=== PATIENT | male | born 1945 | race Caucasian/White ===

== ENCOUNTER 2016-10-20 19:22 | Inpatient (IN) ==
[2016-10-20] MEDS ORDERED: HYDROmorphone 2 MG/1 ML VIAL IV STA (19:50)
[2016-10-20] MEDS ORDERED: DIPH/TET/ACEL PERT BOOSTER VACCINE 0.5 ML VIAL IM ONE ×2 (19:50→20:35)
[2016-10-20] MEDS ORDERED: ONDANSETRON 4 MG/2 ML VIAL IV STA ×2 (19:50→22:08)
[2016-10-20] MEDS ORDERED: LACTATED RINGERS 500 ML IV STA (19:50)
--- NOTE | 2016-10-20 19:54 | Emergency Department Note ---
IJosé Emily, am scribing for, and in the presence of, Tani Moya MD 19: 48. Griffin Parisi Charles R, MD, personally performed the services described in this documentation, ascribed by Zoey Kumar in my presence, and it is both accurate and complete [id number] . Arrival - Arrival Chief Complaint: Trauma Stated Complaint: kicked by a horse-heart patient ED Nursing Triage Note: Pt arrives to triage with complaints of being kicked by a hour a few hours ago. PT is noted to have an abrasion to left side of chest along ribs and to upper right back. Pt denies any sob at time of triage. States that pain is worse with deep breaths. No crepitus can be felt at time of triage and no obvious deformity to chest of back is seen. Pt aslo has some skin tear noted to l ankle and to right forearm Mode of Arrival: Wheelchair Limitations: No Limitations Source: Patient, Significant other - History of Present Illness HPI Narrative: Pt is a 71 y/o male who came to ED with c/o left chest wall pain and right sided back pain s/p of being kicked by a donkey at close range about few hours ago. Pt states that pain is worse with deep breaths, has nausea and active emesis in ED, but denies hitting head or LOC. Pt also has some skin tear noted to left ankle and to right forearm. Spouse notes pt was knocked down "pretty hard" and couldn't get back up right away, but pt denies neck pain. Pt takes aspirin daily. PMHx of IDDM, HTN. Onset (ago): hour(s) Consistency: constant Severity: moderate Severity scale (1-10): 7 Quality: aching Allergies/Adverse Reactions: Allergies Allergy/AdvReac Type Severity Reaction Status Date / Time No Known Allergies Allergy Verified 10/20/16 19:27 Review of System - Review of System 12 point system: reviewed and no additional remarkable complaints except as stated - Review of System Constitutional: Absent: chills, fever Respiratory: Present: respiratory distress (pain with deep breaths) Cardiovascular: Absent: chest pain, syncope Gastrointestinal: Present: nausea, vomiting. Absent: abdominal pain Musculoskeletal: Present: back pain, other (left sided chest wall pain from kick ). Absent: arm pain, leg pain, neck pain Skin: Present: lesions (abrasions to left ankle and right forearm) Neurological: Absent: headache, numbness, paresthesias, confusion Psychiatric: Absent: anxiety Medical,Surgical,& Family Hx - Medical History Cardio: History of: Hypertension Endocrine: History of: Diabetes Mellitus (IDDM), Dyslipidemia - Family History Family History: noncontributory - Social History Smoking Status: Never smoker Frequency of Alcohol Use: None Type of Drug Use: None Marital Status: Lives With:: Spouse Functional capacity: independent ambulation Exam Physical Examination: GENERAL: Moderate distress alert, HEAD: no evidence of trauma, no racoon eyes/suarez signs NECK: non-tender, painless ROM, trachea midline, NEXUS Criteria neg EYES: PERRL, EOMI, no CORINNA ENT: nml ext. inspection, airway nml, no dental/oral injury RESP/CVS:t chest is tender over the left lower part of the chest just below the left nipple line there is a bruise and abrasion. On the right posterior chest there is a large swath running obliquely right posterior chest, nml heart sounds , nml breath sounds ABDOMEN: non-tender, no distension GENITAL/RECTAL: nml ext inspection NEURO/PSYCH: A/Ox4, CN2-10 intact, sensation nml, motor nml, mood/affect nml Glascow Coma Scale: 15 eyes [id number]-1 pwdunv-lhj-1 motor-nml-6 SKIN: intact, warm, dry BACK: no CVA tenderness, no vertebral tenderness EXTREMITIES right arm abrasion tenderness full range of motion noted pelvis stable, , no pedal edema, nml ROM, nml color/temp Vital Signs: Vital Signs Temperature 98.5 F 10/20/16 19:27 Pulse Rate 68 10/20/16 19:27 Respiratory Rate 20 10/20/16 19:27 Blood Pressure 169/83 10/20/16 19:27 O2 Sat by Pulse Oximetry 95 10/20/16 19:27 Course - Consultations Consultation #1: Dr. Maxwell consulted. He will admit patient to the ICU repeat chest x-ray in the morning patient had chest tube placed by oh Time: 22:01 Procedures - Chest Tube Chest Tube 1 Chest Tube Location: mid axillary line Size of Tube (cm): 32 Chest Tube Prep: betadine prep, sterile drapes applied Local Anesthetic: lidocaine 1%, with epi Amount of Anesthesia Used (mL): 10 Incision Made With: #11 blade Post Procedure: sutured to skin, sterile dressing applied Tube Drainage: Air Amount of Initial Drainage (cc's): 300 Post Procedure CXR?: Yes (Good tube placement with decreased air and blood) Patient Tolerated Procedure: Yes Results - Labs CBC & BMP: 10/20/16 19:47 10/20/16 19:47 Lab Results: I have reviewed the patients labs Labs: Laboratory Tests 10/20/16 19:47 WBC 14.3 H RBC 3.51 L Hgb 11.6 L Hct 32.4 L Neut % (Auto) 82.7 H Lymph % (Auto) 8.0 L Neut # (Auto) 11.8 H Lymph # (Auto) 1.2 L Moffat # (Auto) 1.0 H Laboratory Tests 10/20/16 10/20/16 10/20/16 19:47 19:47 19:47 INR 1.0 PT Patient/Control Mix 10.7 Circ Anticoag PTT 23.2 Sodium 134 L Potassium 6.2 H* Chloride 103 Carbon Dioxide 25 BUN 29 H Creatinine 1.50 H GFR Calculation 51 Glucose 289 H Total Creatine Kinase CK-MB (CK-2) CK and CKMB Interp Troponin I Lipase 64.0 L Serum Alcohol < 15 L Blood Type O POSITIVE Antibody Screen Negative 10/20/16 19:47 INR PT Patient/Control Mix Circ Anticoag PTT Sodium Potassium Chloride Carbon Dioxide BUN Creatinine GFR Calculation Glucose Total Creatine Kinase 368 H CK-MB (CK-2) 5.5 H CK and CKMB Interp 1.5 Troponin I 0.022 Lipase Serum Alcohol Blood Type Antibody Screen - Diagnostic Findings Procedure: Chest x-ray: report reviewed by me (Left second third rib fractures. Left hemopneumothorax. Left lower lobe pulmonary contusion.), CT Abdomen and Pelvis: report reviewed by me (with Chest: 1. Acute fx of the left second through fifth ribs. Left hemopneumothorax. 2Chronic/old T12 compression fx. 3. Prior median sternotomy. Calcified atheromatous disease of the coronary arteries. No aortic injury shown.), X-ray: report reviewed by me (Thoracic spine : No acute bony injury identified. Degenerative changes T11-12 with old T12 compression fracture. Pelvic: No acute bony injury. Right inguinal hernia contains bowel. Mild constipation. LT ribs: Left second through fourth rib fx. Possible fifth and possible sixth rib fx. Left hemopneumothorax) Critical Care Time Critical Care Time: Yes Total Critical Care Time: 60 Disposition Clinical Impression: Kicked by mule, Blunt trauma to anterior chest wall, Left hemo-pneumo thorax, Multiple left rib fractures, Pulmonary contusion, Hyperkalemia, Right forearm contusion with skin tears, Right inguinal hernia Case discussed with: patient, patient's family Disposition: Still a Patient Condition: Critical Time of Disposition: 22:04
[2016-10-20 19:58] LABS: Basophils # 0.1 10*3/uL (0.0-0.2); Basophils % 0.4 % (0.0-0.8); Eosinophils # 0.2 10*3/uL (0.0-0.87); Eosinophils % 1.5 % (0.00-10.9); Hematocrit 32.4 VOL% (42.0-52.0); Hemoglobin 11.6 GM/DL (14.0-18.0); Immature Granulocytes % 0.6 %; Immature Granulocytes Absolute 0.09 #; Lymphocytes # 1.2 10*3/uL (1.4-4.0); Mean Corpuscular HGB Conc 35.8 GM/DL (32-36); Mean Corpuscular Hemoglobin 33 PG (27-34); Mean Corpuscular Volume 92.3 FL (87-102); Mean Platelet Volume 10.2 FL (9.6-12.0); Monocytes % 6.8 % (1.7-12.7); Neutrophils # 11.8 10*3/uL (1.4-7.4); Neutrophils % 82.7 % (38.7-73.9); Platelet Count 229 T/CUMM (130-400); Red Blood Count 3.51 MC/CUMM (3.8-5.5); Red Cell Distribution Width 12.4 % (9.3-17.3); White Blood Count 14.3 T/CUMM (4-12)
[2016-10-20 20:24] LABS: PT Patient Result 10.7 SECS; Partial Thromboplastin Time 23.2 SECS (0-40)
[2016-10-20 20:25] LABS: Alanine Aminotransferase 23 U/L (16-61); Alkaline Phosphatase 115 U/L (45-117); Amylase 45 U/L (25-115); Aspartate Amino Transferase 20 U/L (0-37); Blood Urea Nitrogen 29 MG/DL (7-18); Calcium 9.3 MG/DL (8.5-10.1); Glucose 289 MG/DL (74-106); Osmolality,Calculated 284.2 MOS/KG (273-304); Sodium 134 MMOL/L (136-145); Total Protein 7.2 G/DL (6.4-8.3)
[2016-10-20 20:26] LABS: CKMB % 1.5 %; Troponin I Only 0.022 NG/ML (0.00-0.045)
[2016-10-20 20:31] LABS: Potassium 6.2 MMOL/L (3.5-5.1)
[2016-10-20] MEDS ORDERED: ONDANSETRON 4 MG/2 ML VIAL ONE (20:35)
[2016-10-20] MEDS ORDERED: cefTRIAXone 1,000 MG VIAL ONE (20:35)
[2016-10-20] MEDS ORDERED: HYDROmorphone 2 MG/1 ML VIAL ONE (20:35)
[2016-10-20] MEDS ORDERED: ceFAZolin 1,000 MG VIAL ONE (20:39)
--- NOTE | 2016-10-20 21:02 | XRay Report ---
XR chest 2V Indication: Kicked by horse. Chest 2 views: Comparison 08/22/2011. Right lung and pleural space are clear. There is a left hemopneumothorax present with subcutaneous emphysema lateral left chest wall. Parenchymal opacification of the left lung base suggests contusion. Heart size is normal. Prosthetic aortic valve and median sternotomy wires are stable. Fractures of the left second, third ribs noted. Other fractures may be present but radiographically occult. Impression: Left second third rib fractures. Left hemopneumothorax. Left lower lobe pulmonary contusion. PROCEDURE INTERPRETED AT [facility] DEPARTMENT OF RADIOLOGY Final Report Signed by: Derek Song M.D.
--- NOTE | 2016-10-20 21:02 | XRay Report ---
XR thoracic spine 2V ap/lat Indication: Kicked by horse. Thoracic spine 2 views: Bridging endplate osteophytes at T11-12 noted with a 50% T12 compression fracture, old. No acute compression fractures are shown. No spondylolisthesis. Impression: No acute bony injury identified. Degenerative changes T11-12 with old T12 compression fracture. PROCEDURE INTERPRETED AT [facility] DEPARTMENT OF RADIOLOGY Final Report Signed by: Derek Song M.D.
--- NOTE | 2016-10-20 21:03 | XRay Report ---
XR ribs 2V LT Indication: Chest injury. Kicked by horse. Left RIBS 4 views: Fractures of the left second, third, fourth and probably fifth ribs noted. Possible hairline fracture of the anterior left sixth rib is noted as well. The other ribs are grossly intact. Left hemopneumothorax is present and there is subcutaneous emphysema. Impression: Left second through fourth rib fractures. Possible fifth and possible sixth rib fractures. Left hemopneumothorax. PROCEDURE INTERPRETED AT [facility] DEPARTMENT OF RADIOLOGY Final Report Signed by: Derek Song M.D.
--- NOTE | 2016-10-20 21:05 | XRay Report ---
XR pelvis AP 1 or 2 Views Indication: Kicked by horse. Pelvic injury. Pelvis no pelvic fracture identified. No diastases. Bowel is present within the right scrotum. Increased stool in the colon is present. Impression: No acute bony injury. Right inguinal hernia contains bowel. Mild constipation. PROCEDURE INTERPRETED AT [facility] DEPARTMENT OF RADIOLOGY Final Report Signed by: Derek Song M.D.
--- NOTE | 2016-10-20 21:06 | XRay Report ---
XR forearm RT Indication: Kicked by horse. Right forearm 2 views: Mild soft tissue swelling noted. Vascular calcinosis is present as well. No acute fracture. No dislocation. Impression: Soft tissue swelling. PROCEDURE INTERPRETED AT [facility] DEPARTMENT OF RADIOLOGY Final Report Signed by: Derek Song M.D.
--- NOTE | 2016-10-20 21:11 | CT Report ---
CT chest abdomen pelvis w con Indication: Kicked by horse. CT CHEST, ABDOMEN AND PELVIS WITH CONTRAST DLP: 847 mGy*cm. One or more of the following dose reduction techniques was used: Automated exposure control, adjustment of the mA and/or kV according the patient size, or use of iterative reconstruction techniques. Comparison: CT chest 06/06/2008 Technique: Axial CT images of the chest, abdomen and pelvis were obtained following the intravenous administration of Omnipaque 350, 100 cc. Oral contrast was not administered. Chest: Thoracic aorta is elongated and mildly tortuous without aneurysm or dissection identified. No periaortic hematoma. Normal heart size. Postoperative changes median sternotomy. Calcified atheromatous disease of the coronary arteries noted. No mediastinal, axillary or hilar lymphadenopathy. There is mild atelectasis of the dependent right lung which is otherwise clear. Right pleural space clear. The left chest, there is fluid and air in the pleural space. Subcutaneous emphysema is noted as well. Fractures of the left second through fifth ribs noted. No other rib fractures are seen. Scapular intact. Clavicles are intact. Old compression fracture of T12 noted with 80% loss of vertebral body height. No acute compression fractures of the thoracic spine. Abdomen: No splenic injury. Adrenal glands, kidneys, pancreas, gallbladder and liver are unremarkable. No bowel obstruction. No mesenteric edema. No bowel wall thickening. No lymphadenopathy, free fluid or free air. Pelvis: Normal appendix without inflammation. Urinary bladder is contracted. Prostate is normal in size. Rectosigmoid colon appears unremarkable. Right inguinal hernia contains small bowel which is not obstructed. No lumbar spine fracture shown. No acute pelvic fracture. Healed left inferior and superior pubic rami fractures are noted. Impression: 1. Acute fractures of the left second through fifth ribs. Left hemopneumothorax. 2. Chronic/old T12 compression fracture. 3. Prior median sternotomy. Calcified atheromatous disease of the coronary arteries. No aortic injury shown. PROCEDURE INTERPRETED AT [facility] DEPARTMENT OF RADIOLOGY Final Report Signed by: Derek Song M.D.
[2016-10-20] MEDS ORDERED: LIDOCAINE 2%/EPI 20 ML VIAL ONE (21:26)
[2016-10-20] MEDS ORDERED: HYDROmorphone 2 MG/1 ML VIAL IV ONE (22:08)
[2016-10-20] MEDS ORDERED: CALCIUM GLUCONATE 1,000 MG in SODIUM CHLORIDE 0.9% 100 ML IV ONE (22:13)
[2016-10-20] MEDS ORDERED: SODIUM POLYSTYRENE SULFATE 15 GM/60 ML BOTTLE PO STA (23:24)
[2016-10-20] MEDS ORDERED: LACTATED RINGERS 1,000 ML IV SCH (23:50)
[2016-10-20] MEDS ORDERED: DEXTROSE 50% 25 GM/50 ML SYRINGE IV PRN (23:50)
[2016-10-20] MEDS ORDERED: ACETAMINOPHEN 325 MG TABLET PO PRN (23:50)
[2016-10-20] MEDS ORDERED: GLUCAGON 1 MG VIAL IM PRN (23:50)
[2016-10-21] MEDS ORDERED: SODIUM POLYSTYRENE SULFATE 15 GM/60 ML BOTTLE ONE (00:21)
[2016-10-21] MEDS: HYDROmorphone 2 MG/1 ML VIAL IV PRN ×2 (00:40→04:47)
[2016-10-21] MEDS: PIPERACILLIN/TAZOBACTAM 3,375 MG in SODIUM CHLORIDE 0.9% 100 ML IV SCH ×3 (00:41→16:15)
[2016-10-21] MEDS: SODIUM CHLORIDE 0.9% 1,000 ML IV SCH ×4 (01:00→23:15)
--- NOTE | 2016-10-21 02:19 | EKG Report ---
Stationary ECG Study [facility] ER Test Date: 10/20/2016 8:56:42 PM Pat Name: AAKASH GARCIA Department: Room: 115 Gender: M Cryptologic Support Specialist: : [id number] Requested by: Tani Wheeler Order Number: [id number] Bryanna MD: RUBI MORELAND Intervals [place] Rate: 84 P: 94 CT: 242 QRS: 40 QRSD: 109 T: 67 QT: 350 QTc: 391 Interpretive Statements SINUS RHYTHM WITH SINUS ARRHYTHMIA WITH PROLONGED CT INTERVAL NON-SPECIFIC IVCD Electronically Signed On 10-21-16 17:11:20 CDT by RUBI MORELAND [email or web address]
[2016-10-21 04:59] LABS: Basophils % 0.3 % (0.0-0.8); Eosinophils % 0.3 % (0.00-10.9); Hematocrit 27.4 VOL% (42.0-52.0); Hemoglobin 9.3 GM/DL (14.0-18.0); Immature Granulocytes % 0.4 %; Immature Granulocytes Absolute 0.04 #; Lymphocytes # 0.7 10*3/uL (1.4-4.0); Lymphocytes % 6.6 % (21.2-54.2); Mean Corpuscular HGB Conc 33.9 GM/DL (32-36); Mean Corpuscular Hemoglobin 32 PG (27-34); Mean Corpuscular Volume 94.2 FL (87-102); Mean Platelet Volume 10.9 FL (9.6-12.0); Monocytes # 0.6 10*3/uL (0.11-0.8); Neutrophils % 86.4 % (38.7-73.9); Platelet Count 180 T/CUMM (130-400); Red Blood Count 2.91 MC/CUMM (3.8-5.5); Red Cell Distribution Width 12.5 % (9.3-17.3); White Blood Count 10.4 T/CUMM (4-12)
[2016-10-21 05:30] LABS: Albumin 3.4 G/DL (3.4-5.0); Bilirubin,Total 0.8 MG/DL (0.2-1.0); Calcium 8.7 MG/DL (8.5-10.1); Magnesium 2.1 MG/DL (1.8-2.4); Osmolality,Calculated 289.2 MOS/KG (273-304); Total Protein 5.9 G/DL (6.4-8.3)
[2016-10-21 05:41] LABS: Potassium 7.1 MMOL/L (3.5-5.1)
[2016-10-21] MEDS ORDERED: SODIUM POLYSTYRENE SULFATE 15 GM/60 ML BOTTLE PO ONE (07:05)
[2016-10-21] MEDS ORDERED: CALCIUM GLUCONATE 2,000 MG in SODIUM CHLORIDE 0.9% 100 ML IV ONE (07:19)
[2016-10-21] MEDS ORDERED: NALOXONE 0.4 MG/ML VIAL IV PRN (07:19)
--- NOTE | 2016-10-21 07:20 | XRay Report ---
History is chest tube placement Chest one view 10/20/2016 at 9:50 PM Comparison with earlier the same day Mediastinal contours unchanged Chest 2 has been placed on the left. The sidehole is at the lateral rib margin. There is been decrease in size prior left hydropneumothorax. There may be a miniscule residual pneumothorax in left lung apex. Subcutaneous air in left chest remains Elevation left diaphragm with mild patchy opacities in the left lung base remain There are numerous left rib fractures again seen Impression: Interval left chest tube placement with the miniscule residual left apical pneumothorax PROCEDURE INTERPRETED AT [facility] DEPARTMENT OF RADIOLOGY Final Report Signed by: Dr. Brandy Geiger
--- NOTE | 2016-10-21 07:27 | XRay Report ---
History is short of breath chest tube management Comparison 10/20/2016 Heart is at the upper range normal in size of prior median sternotomy Left chest tube again seen with subcutaneous air in the left chest wall. Prior pneumothorax no longer seen. Mild pleural fluid in the left chest remains with mild underlying parenchymal opacities in the left base. Right lung is grossly clear. Numerous a displaced left rib fractures again seen. Impression: No pneumothorax seen. Continued atelectasis and small effusion of the left base PROCEDURE INTERPRETED AT [facility] DEPARTMENT OF RADIOLOGY Final Report Signed by: Dr. Brandy Geiger
[2016-10-21 08:18] LABS: Apearance,Urine CLEAR (Clear); Bilirubin,Urine Negative (Negative); Blood, Urine Negative (Negative); Glucose,Urine (UA) >=500 mg/dL (Negative); Ketones,Urine 5 mg/dL (Negative); Mucus,Urine Occasional /LPF (Occasional); Nitrite,Urine Negative (Negative); Protein,Urine Negative; RBC,Urine 1 /HPF (0-4); Urine Color Yellow (Yellow); Urine Specific Gravity 1.035 (1.001-1.035); Urine Urobilinogen < 2.0 EU/DL (0.2-1.0); WBC,Urine <1 /HPF (0-6)
[2016-10-21] MEDS: INSULIN REGULAR 100 UNIT/ML SUBCUT SCH ×2 (08:35→11:59)
[2016-10-21] MEDS: HYDROmorphone PCA 30 MG/30 ML SYRINGE IV SCH (08:38)
[2016-10-21] MEDS ORDERED: PNEUMOCOCCAL VACCINE (13 VALENT) 0.5 ML SYRINGE IM ONE (09:00)
--- NOTE | 2016-10-21 09:25 | General Surg History&Physical ---
Assessment and Plan (1) Hemopneumothorax on left Status: Acute Assessment and plan: Patient with chest tube in place with approximately 600 cc of output since placement. We will continue to monitor serial H&H as well as output. Oxygen as needed with pain management and incentive spirometer. Will mobilize as tolerated. Current Visit: Yes (2) Ribs, multiple fractures Status: Acute Assessment and plan: As above Current Visit: Yes Qualifiers: Encounter type: initial encounter Fracture type: closed Laterality: left Qualified Code(s): S22.42XA - Multiple fractures of ribs, left side, initial encounter for closed fracture (3) Hyperkalemia Status: Acute Assessment and plan: Potassium is elevated. Monitor on telemetry. Patient has received Kayexalate at this time as well as calcium gluconate. Patient is reportedly on lisinopril and Aldactone at home which may be contributing. We are awaiting a medication list from a family member. Consult hospitalist for assistance. Appreciate input. Current Visit: Yes (4) History of hypertension Status: Acute Assessment and plan: Currently normotensive. Awaiting home medication list. Current Visit: Yes (5) History of insulin dependent diabetes mellitus Status: Acute Assessment and plan: Diabetic diet and sliding scale. Awaiting home medication list. Current Visit: Yes (6) Prophylactic measure Status: Acute Assessment and plan: DVT prophylaxis: SID hose in place. Hold pharmacologic prophylaxis considering hemothorax. GI prophylaxis: PPI daily Current Visit: Yes History of Present Illness Chief complaint: Kicked by donkey - chest pain History of present illness: Mr. Morse is a 71 year old male currently admitted to the ICU for hemothorax after being kicked multiple times in the by Clif[place] E. Patient was noted to have a hemothorax and chest tube was placed in the emergency room with 600 cc total output since placement. The patient was initially short of breath and experiencing significant left-sided and chest pain and right flank pain but is currently comfortable requesting something to eat. He denies any abdominal pain or any other musculoskeletal pain. Patient reports chronic wounds of his bilateral ankles which have almost resolved. Patient noted to have significant hyperkalemia which is actually increased upon admission without noted EKG changes. CPK K is not significantly elevated. Her medications had to be Aldactone and lisinopril, and patient denies any history of issues with hyperkalemia. His creatinine is slightly elevated and he notes that he has been told his kidneys are "a little weak" in the past, but he is on aware of his baseline creatinine. 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 He has been asymptomatic for several years. The patient reports he is rather active in his home without any chest pain or dyspnea. PCP Dr. Andrade in [place]. Allergies Allergy/AdvReac Type Severity Reaction Status Date / Time No Known Allergies Allergy Verified 10/20/16 19:27 Medical,Surgical,& Family Hx - Medical History Cardio: History of: CAD, Hypertension, [place] HEENT: History of: HEENT Problems (cataracts) Endocrine: History of: Diabetes Mellitus (IDDM) Musculoskeletal: History of: Back/Neck Problems - Surgical History Cardiac Surgeries: Sugical HX of: Cardiac Catheterization, Cardiac Surgery - Family History Family History: Denies;: Additional Family History - Social History Smoking Status: Never smoker Frequency of Alcohol Use: None Type of Drug Use: None Marital Status: Exam - Constitutional Vitals: Period Temp Pulse Resp BP Sys/Branch Pulse Ox Last 24 Hr 97.1 F-98.6 F 68-88 13-24 84-176/49-97 93-100 General appearance: no acute distress - Head Head exam: Present: normocephalic - Eye Eye exam: Present: EOMI. Absent: scleral icterus - Neck Neck exam: Present: trachea midline - Respiratory Respiratory exam: Present: other (Diminished left lower extremity; clear on the right) - Cardiovascular Cardiovascular exam: Present: RRR - GI/Abdominal GI/Abdominal exam: Present: normal bowel sounds, soft. Absent: distended, tenderness - Extremities Exam Extremities exam: Absent: edema - Neurological Exam Neurological exam: Present: alert, oriented X3 Speech: Present: normal - Skin Skin exam: Present: normal color, warm - Constitutional Constitutional: Absent: chills, fever(s) - Cardiovascular Cardiovascular: Absent: chest pain at rest, chest pain with activity - Gastrointestinal Gastrointestinal: Absent: abdominal pain, heartburn, nausea, vomiting - Musculoskeletal Musculoskeletal: Present: as per HPI Hematologic/Lymphatic: Absent: easy bleeding, easy bruising Results - Labs CBC & BMP: 10/21/16 03:39 10/21/16 06:03 - EKG EKG results: interpreted by ERMD - Diagnostic Findings Procedure: Chest x-ray: image reviewed by me, report reviewed by me (Successful chest tube placement with improved with), CT Abdomen and Pelvis: image reviewed by me, report reviewed by me (Left rib fractures 2 through 5; hemopneumothorax noted.)
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
[2016-10-21] MEDS: PANTOPRAZOLE 40 MG VIAL IV SCH (10:38)
[2016-10-21] MEDS: SODIUM POLYSTYRENE SULFATE 15 GM/60 ML BOTTLE PO SCH ×3 (10:38→23:39)
[2016-10-21] MEDS ORDERED: SODIUM CHLORIDE 0.9% 1,000 ML IV ONE ×2 (10:46→15:08)
[2016-10-21] MEDS ORDERED: FUROSEMIDE 40 MG/4 ML VIAL IV ONE (10:46)
[2016-10-21] MEDS: ALBUTEROL/IPRATROPIUM 3 ML NEB RESP TX SCH ×4 (11:26→23:06)
[2016-10-21] MEDS: DICLOFENAC 1.3% PATCH 5/PACK TRANSDERM SCH ×2 (11:29→21:35)
[2016-10-21] MEDS ORDERED: INSULIN REGULAR 100 UNIT/ML ONE (11:57)
[2016-10-21] MEDS: CARVEDILOL 6.25 MG TABLET PO SCH ×2 (12:00→23:15)
[2016-10-21] MEDS: ATORVASTATIN 20 MG TABLET PO SCH (12:00)
[2016-10-21] MEDS: COLLAGENASE OINT 30 GM TUBE TOP SCH (12:02)
[2016-10-21 12:14] LABS: Hematocrit 26.4 VOL% (42.0-52.0); Hemoglobin 9.1 GM/DL (14.0-18.0)
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
[2016-10-21] MEDS: INSULIN LISPRO 100 UNIT/ML SUBCUT SCH (17:04)
[2016-10-21] MEDS: ESCITALOPRAM 10 MG TABLET PO SCH (21:35)
[2016-10-22] MEDS: PIPERACILLIN/TAZOBACTAM 3,375 MG in SODIUM CHLORIDE 0.9% 100 ML IV SCH ×3 (00:04→16:16)
[2016-10-22] MEDS ORDERED: SODIUM CHLORIDE 0.9% 500 ML IV ONE (02:38)
[2016-10-22] MEDS ORDERED: DILTIAZEM 50 MG/10 ML VIAL IV ONE (02:39)
--- NOTE | 2016-10-22 02:49 | Event Note ---
Notified by the nurse for patient's heart rate increasing from 105 to the 130s. Systolic blood pressure in the 90s. Patient mentating well. Upon assessment patient denied chest pain currently but admitted to chest pain earlier tonight. Description of chest pain included the same pain he had had with the chest tube. No increased drainage from the chest tube. Noted slight tidaling with every respiration. Patient denies any shortness of breath. EKG was obtained which showed A. fib with RVR. However on surveillance system monitor QRS complexes were regular with notable P waves. Comparing old EKG's, no significant change to EKG. Pain has been controlled tonight by [place] and PCP pump. Will bolus patient 500 mL of normal saline and will redraw cardiac enzymes, a chemistry, magnesium and TSH. If heart rate does not improve, will give Cardizem 10 mg IV push followed by a Cardizem infusion.
[2016-10-22 02:53] LABS: Basophils % 0.2 % (0.0-0.8); Eosinophils # 0.1 10*3/uL (0.0-0.87); Eosinophils % 0.4 % (0.00-10.9); Hematocrit 24.4 VOL% (42.0-52.0); Hemoglobin 8.2 GM/DL (14.0-18.0); Immature Granulocytes % 0.6 %; Immature Granulocytes Absolute 0.07 #; Lymphocytes # 0.6 10*3/uL (1.4-4.0); Lymphocytes % 5.4 % (21.2-54.2); Mean Corpuscular HGB Conc 33.6 GM/DL (32-36); Mean Corpuscular Hemoglobin 33 PG (27-34); Mean Platelet Volume 10.1 FL (9.6-12.0); Monocytes # 0.9 10*3/uL (0.11-0.8); Monocytes % 7.4 % (1.7-12.7); Neutrophils # 9.9 10*3/uL (1.4-7.4); Platelet Count 131 T/CUMM (130-400); Red Blood Count 2.49 MC/CUMM (3.8-5.5); Red Cell Distribution Width 12.9 % (9.3-17.3); White Blood Count 11.5 T/CUMM (4-12)
[2016-10-22] MEDS: SODIUM CHLORIDE 0.9% 1,000 ML IV SCH ×4 (03:08→21:39)
[2016-10-22] MEDS: ALBUTEROL/IPRATROPIUM 3 ML NEB RESP TX SCH ×5 (03:19→20:14)
[2016-10-22 03:25] LABS: Albumin 2.9 G/DL (3.4-5.0); Bilirubin,Total 0.5 MG/DL (0.2-1.0); CKMB % 1.3 %; Calcium 8.1 MG/DL (8.5-10.1); Free T4 (Free Thyroxine) 1.2 NG/DL (0.76-1.46); Magnesium 1.8 MG/DL (1.8-2.4); Osmolality,Calculated 296.4 MOS/KG (273-304); Potassium 4.1 MMOL/L (3.5-5.1); Thyroid Stimulating Hormone 0.647 uIU/ml (0.358-3.74); Total Protein 5.1 G/DL (6.4-8.3); Troponin I Only 0.038 NG/ML (0.00-0.045)
--- NOTE | 2016-10-22 03:27 | EKG Report ---
Stationary ECG Study [facility] Test Date: 10/22/2016 2:01:29 AM Pat Name: AAKASH GARCIA Department: Room: 115 Gender: M Social Services Manager: TS : 1945 Requested by: Darion Maxwell Order Number: [id number] Reading MD: MATTHIAS SALAZAR Intervals [place] Rate: 117 P: 999 [place]: 0 QRS: 49 QRSD: 109 T: 226 QT: 301 QTc: 371 Interpretive Statements ATRIAL FIBRILLATION WITH RAPID VENTRICULAR RESPONSE ST DEVIATION AND MODERATE T-WAVE ABNORMALITY, CONSIDER LATERAL ISCHEMIA ST DEVIATION AND MODERATE T-WAVE ABNORMALITY, CONSIDER INFERIOR ISCHEMIA WARNING: DATA QUALITY MAY AFFECT INTERPRETATION Electronically Signed On 10-24-16 10:52:27 CDT by MATTHIAS SALAZAR [email or web address]
[2016-10-22] MEDS ORDERED: SODIUM CHLORIDE 0.9% 0 ML IV ONE (03:48)
[2016-10-22] MEDS ORDERED: DILTIAZEM 100 MG VIAL.ADD IV ONE (03:48)
[2016-10-22] MEDS ORDERED: SODIUM CHLORIDE 0.9% 100 ML IV ONE (03:49)
[2016-10-22] MEDS ORDERED: DILTIAZEM INJ 100 MG in SODIUM CHLORIDE 0.9% 100 ML IV SCH (04:00)
--- NOTE | 2016-10-22 06:58 | Pulmonology Progress Note ---
Pulmonary - PN: Subj Interval history: This 71-year-old white male was kicked in the chest by [employer] horse a couple of days ago. He has rib fractures of the second through fifth ribs on the left side along with a hemopneumothorax and a lung contusion. Last night he had atrial fibrillation with a rapid ventricular response. He does not have a history of atrial fib in the past. He has had previous coronary surgery. We will check an echocardiogram and get cardiology to see him. He seems comfortable and his oxygen saturations are acceptable. Chest x-ray looks a little bit worse in the lower portion of the left lung. Renal function is a little bit worse. He is requiring some IV fluids. Exam (Progress Note) - Constitutional Vitals: Period Temp Pulse Resp BP Sys/Branch Pulse Ox Last 24 Hr 98.5 F-99.9 F 67-135 10-24 74-144/39-83 92-100 Exam: Patient's alert and oriented. Vital signs normal. O2 sat is about 95% on 2 L nasal biprong's. Pupils react to light. Throat is clear. Neck is supple no bruits. Chest he has chest tube in the left chest there is some subcutaneous air. Rhonchi at the left base. Right lung sounds fairly clear sternal scar is noted. Abdomen soft nontender no masses. Bowel sounds present. Extremities no clubbing cyanosis or edema. Calves nontender Results - Labs CBC & BMP: 10/22/16 02:41 10/22/16 02:43 Lab Results: I have reviewed the past 24 hour labs - Diagnostic Findings Procedure: Chest x-ray: image reviewed by me (Chest tube and left chest. Slightly more dense over the left lower chest. Some subcutaneous air.) Assessment and Plan (1) Pulmonary contusion Status: Acute Assessment and plan: Requiring oxygen. Chest x-ray a little worse. Need to continue close watch. Current Visit: Yes (2) Ribs, multiple fractures Status: Acute Assessment and plan: Second through fifth rib fracture on the left side. I do not see any active flailing. Ribs are displaced. Current Visit: Yes Qualifiers: Encounter type: initial encounter Fracture type: closed Laterality: left Qualified Code(s): S22.42XA - Multiple fractures of ribs, left side, initial encounter for closed fracture (3) Hemopneumothorax on left Status: Acute Assessment and plan: Has chest tube. Lung is expanded. Current Visit: Yes (4) History of insulin dependent diabetes mellitus Status: Acute Assessment and plan: Glucoses in the 200s. Current Visit: Yes (5) Atrial fibrillation Status: Acute Assessment and plan: Episode of atrial fibrillation with rapid ventricular response overnight. Now on a diltiazem infusion and his rate is controlled. This is new for him. Needs echo to be sure he does not have contusion of his myocardium or paracardial effusion. Also will get cardiology to follow. Dr. Hoffmann has seen him in the past and he has had coronary bypass surgery done here by Dr. Wise in the past. Current Visit: Yes
--- NOTE | 2016-10-22 07:36 | XRay Report ---
Exam: XR chest 1V portable Date: 10/22/2016 4:00 AM Indication: Hemothorax follow-up chest tube Comparison: 10/21/2016 Technical: AP Findings: A left-sided thoracotomy tube is present. Multiple left rib fractures are present with underlying atelectatic change and subcutaneous air present. No obvious pneumothorax clearly demonstrated. Sternotomy wires and previous valve replacement surgical changes are present. Mild cardiomegaly present. Oxygen tubing external cardiac leads are present. Impression: 1. Stable position of left-sided thoracotomy tube with underlying atelectatic change and infiltrates and effusions left chest with associated multiple left rib fractures and subcutaneous air 2. No pneumothorax 3. Previous sternotomy and valve replacement surgery PROCEDURE INTERPRETED AT [facility] ([facility] DEPARTMENT OF RADIOLOGY Final Report Signed by: Dr. Yannick Churchill
[2016-10-22] MEDS: HYDROmorphone PCA 30 MG/30 ML SYRINGE IV SCH (07:40)
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
[2016-10-22] MEDS ORDERED: SODIUM CHLORIDE 0.9% 250 ML IV PRN (08:06)
[2016-10-22] MEDS: PANTOPRAZOLE 40 MG VIAL IV SCH (08:28)
[2016-10-22] MEDS: INSULIN LISPRO 100 UNIT/ML SUBCUT SCH ×3 (08:28→21:31)
[2016-10-22] MEDS: DICLOFENAC 1.3% PATCH 5/PACK TRANSDERM SCH ×2 (08:29→21:31)
[2016-10-22] MEDS: CARVEDILOL 6.25 MG TABLET PO SCH ×2 (08:29→21:33)
[2016-10-22] MEDS: COLLAGENASE OINT 30 GM TUBE TOP SCH (08:29)
[2016-10-22] MEDS: BACITRACIN OINT 0.9 GM PACK TOP SCH (08:29)
[2016-10-22] MEDS: ATORVASTATIN 20 MG TABLET PO SCH (08:29)
--- NOTE | 2016-10-22 08:33 | EKG Report ---
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
[2016-10-22] MEDS ORDERED: PHENYLEPHRINE DRIP 0 MG/0 ML PREMIX IV ONE (10:25)
[2016-10-22] MEDS ORDERED: SODIUM CHLORIDE 0.9% 1,000 ML IV ONE (10:34)
--- NOTE | 2016-10-22 10:44 | ECHO Report ---
Lucinda Morse 10/22/2016 Exam Date: 10:05 Referring Physician: Antonietta Currie Technologist: JASON Age: 71 Ht (in): 71 Wt (lb): 130 MExam Location[facility] Gender: Echo [id number]: Chest trauma, Multiple rib fracturIndications: hemopneumothorax, New onset atrial fib, NIDDM, CAD with previous CABG, Anemia, Dyslipidemia BP: 78 / 42 HR: 50 OtherRhythm: goodTechnical Quality: IMPRESSIONS Left ventricular ejection fraction is estimated at 55 % and I see no regional wall motion abnormality. There is no pericardial effusion. Diastolic parameters are incomplete as the patient is in atrial fibrillation. Moderate tricuspid valve regurgitation. Tricuspid regurgitation velocities suggest a RVSP of 45 mmHg plus the right atrial pressure. Trace pulmonary valve regurgitation. The mitral annulus is extremely echo bright and this may represent an annular ring or mitral annular calcification Biatrial enlargment MEASUREMENTS (Male / Female) Normal Values 2D ECHO LV Diastolic Diameter PLAX 4.6 cm 4.2 - 5.9 / 3.9 - 5.3 cm LV Systolic Diameter PLAX 2.9 cm LV Fractional Shortening PLAX 37.0 % IVS Diastolic Thickness 1.2 cm 0.6 - 1.0 / 0.6 - 0.9 cm LVPW Diastolic Thickness 1.2 cm 0.6 - 1.0 / 0.6 - 0.9 cm RV Internal Dim ED PLAX 2.8 cm Aortic Root Diameter 3.5 cm LA Systolic Diameter LX 5.0 cm 3.0 - 4.0 / 2.7 - 3.8 cm DOPPLER TR Peak Velocity 335.0 cm/s TR Peak Gradient 44.9 mmHg FINDINGS Left Ventricle Normal left ventricular cavity size. Mild left ventricular hypertrophy. Left ventricular ejection fraction is estimated at 55 % and I see no regional wall motion abnormality. There is no pericardial effusion. Diastolic parameters are incomplete as the patient is in atrial fibrillation Right Ventricle The right ventricle is normal in size and function. Right Atrium Moderately increased right atrial size. Left Atrium Moderately increased left atrial size. Mitral Valve Morphologically normal mitral valve. Mild mitral annular calcification. Mild mitral valve regurgitation. Aortic Valve Mild aortic valve sclerosis without stenosis or regurgitation. Tricuspid Valve Morphologically normal tricuspid valve. Moderate tricuspid valve regurgitation. Tricuspid regurgitation velocities suggest a RVSP of 45 mmHg plus the right atrial pressure. Pulmonic Valve Morphologically normal pulmonic valve. Trace pulmonary valve regurgitation. Pericardium Normal pericardium without effusion. Aorta Normal ascending aorta dimension. Cecily Sidhu (Electronically Signed) 22 October 2016 Final Date: 10:43
[2016-10-22] MEDS ORDERED: DOPamine 800 MG/250 ML PREMIX IV ONE (10:49)
--- NOTE | 2016-10-22 10:52 | EKG Report ---
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
[2016-10-22] MEDS: DOPamine 800 MG/250 ML PREMIX IV SCH (11:05)
--- NOTE | 2016-10-22 11:33 | XRay Report ---
Exam: XR chest 1V portable Date: 10/22/2016 11:14 AM Indication: Shortness of breath Comparison: None Technical: AP portable Findings: Left-sided thoracotomy tube is present. Flail segments are present with multiple left rib fractures and subcutaneous air. There is small amount of pneumothorax present. Hemothorax is present with atelectasis change and consolidation left base. There is a component of mild cardiomegaly with previous sternotomy and valve replacement surgery. External cardiac leads are present. Cardiac pad superimposing exam. Impression: 1. Stable appearance of left-sided thoracotomy tube with component of a hemopneumothorax present with consolidation atelectatic change in the left base with small apical pneumothorax present. 2. Cardiomegaly and previous sternotomy and valve replacement surgery. 3. Multiple rib fractures and flail segment at multiple levels present. Left RIBS PROCEDURE INTERPRETED AT [facility] DEPARTMENT OF RADIOLOGY Final Report Signed by: Dr. Yannick Churchill
--- NOTE | 2016-10-22 14:44 | Hospitalist Progress Note ---
Assessment and Plan (1) Hyperkalemia Status: Acute Assessment and plan: Hyperkalemia is resolved. Will continue supportive care. Current Visit: Yes Hospitalist: Subjective Interval history: Mr. Morse is in the intensive care unit now he had bradycardia and some pauses today. Cardizem infusion was discontinued and Dr. Young is evaluating blood pressure and heart rate. Exam - Constitutional Vitals: Period Temp Pulse Resp BP Sys/Branch Pulse Ox Last 24 Hr 97.7 F-99.9 F 55-135 10-28 74-144/39-83 91-100 General appearance: mild distress - Respiratory Respiratory exam: Present: clear to auscultation bilaterally - Cardiovascular Cardiovascular exam: Present: irregular rhythm Results - Labs CBC & BMP: 10/22/16 02:41 10/22/16 02:43 Lab Results: I have reviewed the past 24 hour labs
--- NOTE | 2016-10-22 17:42 | General Surgery Progress Note ---
Assessment and Plan (1) Hemopneumothorax on left Status: Acute Assessment and plan: The patient has worsening renal dysfunction today. He is receiving a blood transfusion and resuscitation. He is not on any nephrotoxic medications. His kidney injury is likely multifactorial and his blood pressure is improved now his dopamine has been started a low rate. He is going to receive a blood transfusion today because of his decreased hemoglobin. Cardiology is following for his arrhythmias. He will need to remain in the ICU today and close monitoring for return of renal function. We may try some Lasix later today if he does not respond to colloid and crystalloid resuscitation. Repeat chest x- ray tomorrow. Patient is having some increased oxygen requirements and this is likely due to blossoming of his pulmonary contusion. We will continue to encourage incentive spirometry and try to get him up out of bed. Current Visit: Yes Subjective Patient reports: Present: no new complaints, pain is less, flatus, no bowel movement, afebrile. Absent: nausea, vomiting, shortness of breath Narrative: The patient developed atrial fibrillation with rapid ventricular response overnight and was placed on diltiazem. His heart rate then decreased and he became bradycardic. He had some hypotension with his A. fib and also with his bradycardia during the day today. His hemoglobin drifted down to 8.2 g/dL from 9.1 g/dL yesterday and he is receiving a blood transfusion and IV fluids today. He was a little bit lethargic when he was hypotensive but once his blood pressure was corrected his mental status returned to normal. He was placed on dopamine after discussing his bradycardic hypertension with cardiology and this significantly improved his hemodynamics. He has not been making much urine today and his creatinine has gone from 1.6 yesterday to 2.3 today. Exam - Constitutional Vitals: Period Temp Pulse Resp BP Sys/Branch Pulse Ox Last 24 Hr 97.7 F-99.9 F 55-135 10-28 74-165/39-83 91-100 General appearance: normal weight, no acute distress - Head Head exam: Present: normal inspection, normocephalic - Eye Eye exam: Present: EOMI Pupils: Present: JUAN [place]IEGO - ENT ENT exam: Present: normal exam Mouth exam: Present: normal external inspection, normal voice - Neck Neck exam: Present: normal inspection, trachea midline - Respiratory Respiratory exam: Present: chest wall tenderness, decreased breath sounds ( Decreased breath sounds on the left side), other (Chest tube with about 200 cc of serosanguineous fluid. No air leak.). Absent: accessory muscle use - Cardiovascular Cardiovascular exam: Present: irregular rhythm. Absent: systolic murmur, tachycardia - GI/Abdominal GI/Abdominal exam: Present: soft. Absent: tenderness, rebound - Extremities Exam Extremities exam: Present: normal inspection, normal capillary refill - Back Exam Back exam: Present: normal inspection - Neurological Exam Neurological exam: Present: alert Speech: Present: normal - Skin Skin exam: Present: normal color, warm Results - Labs CBC & BMP: 10/22/16 02:41 10/22/16 02:43 - Diagnostic Findings Procedure: Chest x-ray: image reviewed by me, report reviewed by me
[2016-10-22 17:54] LABS: Basophils % 0.3 % (0.0-0.8); Eosinophils % 0.2 % (0.00-10.9); Hematocrit 29.4 VOL% (42.0-52.0); Hemoglobin 10.1 GM/DL (14.0-18.0); Immature Granulocytes % 0.6 %; Immature Granulocytes Absolute 0.07 #; Lymphocytes # 0.6 10*3/uL (1.4-4.0); Lymphocytes % 5.3 % (21.2-54.2); Mean Corpuscular HGB Conc 34.4 GM/DL (32-36); Mean Corpuscular Hemoglobin 32 PG (27-34); Mean Platelet Volume 10.6 FL (9.6-12.0); Monocytes # 0.8 10*3/uL (0.11-0.8); Monocytes % 6.9 % (1.7-12.7); Neutrophils # 9.5 10*3/uL (1.4-7.4); Neutrophils % 86.7 % (38.7-73.9); Platelet Count 130 T/CUMM (130-400); Red Blood Count 3.16 MC/CUMM (3.8-5.5); White Blood Count 10.9 T/CUMM (4-12)
[2016-10-22 18:14] LABS: PT Patient Result 10.9 SECS
[2016-10-22 18:18] LABS: Alanine Aminotransferase 18 U/L (16-61); Albumin 3.1 G/DL (3.4-5.0); Alkaline Phosphatase 89 U/L (45-117); Aspartate Amino Transferase 21 U/L (0-37); Blood Urea Nitrogen 34 MG/DL (7-18); Calcium 7.7 MG/DL (8.5-10.1); Glucose 419 MG/DL (74-106); Magnesium 1.9 MG/DL (1.8-2.4); Osmolality,Calculated 298.8 MOS/KG (273-304); Potassium 4.1 MMOL/L (3.5-5.1); Sodium 137 MMOL/L (136-145); Total Protein 5.7 G/DL (6.4-8.3)
[2016-10-22 18:23] LABS: Troponin I Only 0.046 NG/ML (0.00-0.045)
[2016-10-22 18:33] LABS: ABG Base Excess -9.4 MMOL/L (-2.5-2.5); ABG HCO3 16.2 MMOL/L (20-26); ABG Oxygen Saturation 92.1 % (95-100); ABG PCO2 33.9 MM HG (35-48); ABG PH 7.296 (7.35-7.45); ABG PO2 59.5 MM HG (80-95); ABG TCO2 17.2 MMOL/L (23-27)
[2016-10-22] MEDS: ESCITALOPRAM 10 MG TABLET PO SCH (21:33)
[2016-10-23] MEDS ORDERED: SODIUM CHLORIDE 0.9% 1,000 ML IV ONE (00:11)
[2016-10-23] MEDS: PIPERACILLIN/TAZOBACTAM 3,375 MG in SODIUM CHLORIDE 0.9% 100 ML IV SCH ×2 (00:28→08:39)
[2016-10-23] MEDS: INSULIN LISPRO 100 UNIT/ML SUBCUT SCH ×7 (00:28→21:04)
[2016-10-23] MEDS: ALBUTEROL/IPRATROPIUM 3 ML NEB RESP TX SCH ×6 (00:45→19:40)
[2016-10-23 03:52] LABS: Allen Test Positive; Pt O2 Delivery Device Venturi Mask
[2016-10-23 04:01] LABS: ABG Base Excess -10.5 MMOL/L (-2.5-2.5); ABG HCO3 16.5 MMOL/L (20-26); ABG PCO2 40.5 MM HG (35-48); ABG PH 7.229 (7.35-7.45); ABG PO2 102.6 MM HG (80-95); ABG TCO2 17.8 MMOL/L (23-27)
[2016-10-23 04:11] LABS: ABG Oxygen Saturation 96.7 % (95-100)
[2016-10-23] MEDS: SODIUM CHLORIDE 0.9% 1,000 ML IV SCH ×4 (04:31→18:50)
[2016-10-23 04:49] LABS: Basophils % 0.3 % (0.0-0.8); Eosinophils # 0.3 10*3/uL (0.0-0.87); Eosinophils % 3.1 % (0.00-10.9); Hematocrit 27.8 VOL% (42.0-52.0); Hemoglobin 9.3 GM/DL (14.0-18.0); Immature Granulocytes % 0.8 %; Immature Granulocytes Absolute 0.08 #; Lymphocytes # 0.8 10*3/uL (1.4-4.0); Lymphocytes % 8.1 % (21.2-54.2); Mean Corpuscular HGB Conc 33.5 GM/DL (32-36); Mean Corpuscular Hemoglobin 32 PG (27-34); Mean Corpuscular Volume 94.2 FL (87-102); Mean Platelet Volume 10.5 FL (9.6-12.0); Monocytes # 0.8 10*3/uL (0.11-0.8); Monocytes % 8.1 % (1.7-12.7); Neutrophils # 7.8 10*3/uL (1.4-7.4); Neutrophils % 79.6 % (38.7-73.9); Platelet Count 120 T/CUMM (130-400); Red Blood Count 2.95 MC/CUMM (3.8-5.5); Red Cell Distribution Width 14.6 % (9.3-17.3); White Blood Count 9.8 T/CUMM (4-12)
[2016-10-23 05:41] LABS: Calcium 7.6 MG/DL (8.5-10.1); Magnesium 1.9 MG/DL (1.8-2.4); Osmolality,Calculated 290.3 MOS/KG (273-304); Potassium 3.6 MMOL/L (3.5-5.1)
[2016-10-23] MEDS: HYDROmorphone PCA 30 MG/30 ML SYRINGE IV SCH (07:34)
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
--- NOTE | 2016-10-23 07:48 | EKG Report ---
Stationary ECG Study [facility] Test Date: 10/22/2016 4:49:28 PM Pat Name: AAKASH GARCIA Department: Room: 115 Gender: M [employer] Operator: : [id number] Requested by: Jose Oakes Order Number: [id number] Reading MD: RADHA DAUGHERTY Intervals Wann Rate: 86 P: 89 IN: 204 QRS: 59 QRSD: 108 T: -75 QT: 354 QTc: 397 Interpretive Statements SINUS RHYTHM WITH OCCASIONAL VENTRICULAR PREMATURE COMPLEXES Electronically Signed On 10-24-16 11:40:06 CDT by RADHA DAUGHERTY [email or web address]
[2016-10-23] MEDS: PANTOPRAZOLE 40 MG VIAL IV SCH (08:38)
[2016-10-23] MEDS: COLLAGENASE OINT 30 GM TUBE TOP SCH (08:38)
[2016-10-23] MEDS: BACITRACIN OINT 0.9 GM PACK TOP SCH (08:39)
[2016-10-23] MEDS: ATORVASTATIN 20 MG TABLET PO SCH (08:39)
[2016-10-23] MEDS: CARVEDILOL 6.25 MG TABLET PO SCH ×2 (08:39→21:10)
--- NOTE | 2016-10-23 08:54 | XRay Report ---
Exam: XR chest 1V portable Date: 10/23/2016 4:00 AM Indication: Shortness of breath follow-up chest tube Comparison: 10/22/2016 Technical: AP Findings: Subcutaneous air is present. Left-sided thoracotomy tube is present. Pleural thickening and hemothorax and small tiny pneumothorax present. There is decreasing effusion in the left base. Low volume right effusion present. Oxygen tubing external cardiac leads are present. Sternotomy wires and ASVD are present with cardiac enlargement. Flail segment present over the left chest at multiple levels in the ribs. Impression: 1. Slight improvement in aeration the left base with slight decreased atelectatic change and hemopneumothorax with persistent subcutaneous air 2. Flail segments are again noted left RIBS 3. Low volume right effusion has developed 4. Previous sternotomy and valve replacement surgery with cardiac enlargement PROCEDURE INTERPRETED AT [facility] DEPARTMENT OF RADIOLOGY Final Report Signed by: Dr. Yannick Churchill
[2016-10-23] MEDS: ONDANSETRON 4 MG/2 ML VIAL IV PRN (09:07)
[2016-10-23] MEDS ORDERED: ALBUMIN 25% 12.5 GM in PREMIX 1 EACH IV ONE (09:45)
[2016-10-23] MEDS ORDERED: FUROSEMIDE 40 MG/4 ML VIAL IV ONE (09:46)
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
--- NOTE | 2016-10-23 10:08 | General Surgery Progress Note ---
Assessment and Plan (1) Hemopneumothorax on left Status: Acute Assessment and plan: The patient responded to blood transfusion and IV fluid administration yesterday with improved urine output and his urine output dropped overnight and I was never called about this. He is off his dopamine now and hemodynamically he looks much better today. He is more awake and alert and back to his baseline. Chest tube output is serosanguineous there is no evidence of ongoing bleeding and there is no airleak so this was changed to waterseal. Hemoglobin continues to down trend but probably is delusional due to IV fluids administration. Hemoglobin today is 9.3 from 10.1 yesterday after transfusion. Nephrology has been consulted and is going to attempt Lasix to improve urine output. The patient received IV contrast for his initial CT scan and he was hypotensive for a prolonged period of time 2 nights ago he went into A. fib with RVR and then a bradycardic hypotension but this is all resolved now. He is not on any nephrotoxic medications but I am going to go ahead and stop the Zosyn which could eventually contribute to renal dysfunction and I do not see any indication for antibiotics in his chart or his lab work or cultures. Regardless, he is afebrile and his white blood cell count is normal. He will continue to remain in the ICU for now. His ABG is concerning especially his base deficit we will continue to follow this. He does have a large inguinal hernia containing bowel but this is not tender and does not demonstrate any evidence of strangulation. Current Visit: Yes Subjective Patient reports: Present: no new complaints, feels better, still having pain, pain is less, tolerating a regular diet, flatus, no bowel movement, afebrile. Absent: diarrhea, nausea, vomiting Narrative: The patient stabilized hemodynamically yesterday and is off dopamine now. His blood pressure has been normal through the night. His creatinine continues to go up and it is 3.6 today from 3.1 yesterday he still has a base deficit of 10.5 on his ABG. His oxygenation is slightly improved with PaO2 up to 100 on nasal cannula. Chest tube output is 190 cc yesterday. No air leak present. Urine output has dropped significantly overnight. I was not called about this. Last 3 hours recorded are 3 cc, 1 cc, and 0 cc. Troponin has gone up to 0.058 from 0.046 yesterday. Cardiology is following. Echocardiogram yesterday showed normal ejection fraction with no wall motion abnormalities and no pericardial effusion. Exam - Constitutional Vitals: Period Temp Pulse Resp BP Sys/Branch Pulse Ox Last 24 Hr 97.7 F-99.8 F 55-98 12-28 91-165/47-97 91-99 General appearance: normal weight, no acute distress - Head Head exam: Present: normal inspection, normocephalic - Eye Eye exam: Present: EOMI. Absent: scleral icterus Pupils: Present: [place] - ENT ENT exam: Present: normal exam Mouth exam: Present: normal external inspection, normal voice - Neck Neck exam: Present: normal inspection, trachea midline - Respiratory Respiratory exam: Present: chest wall tenderness, decreased breath sounds ( Decreased breath sounds in the left lower lung olvera.), other (Chest tube output is serosanguineous. No air leak is present.) - Cardiovascular Cardiovascular exam: Present: RRR. Absent: systolic murmur, tachycardia - GI/Abdominal GI/Abdominal exam: Present: normal bowel sounds, soft. Absent: tenderness, rebound - Extremities Exam Extremities exam: Present: normal inspection, normal capillary refill - Back Exam Back exam: Present: normal inspection - Neurological Exam Neurological exam: Present: alert, oriented X3 Speech: Present: normal - Skin Skin exam: Present: normal color, warm Results - Labs CBC & BMP: 10/23/16 04:12 10/23/16 04:12
[2016-10-23] MEDS: DOPamine 800 MG/250 ML PREMIX IV SCH (11:26)
[2016-10-23] MEDS: DICLOFENAC 1.3% PATCH 5/PACK TRANSDERM SCH ×2 (11:34→21:25)
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
[2016-10-23 14:10] LABS: Hematocrit 30.3 VOL% (42.0-52.0); Hemoglobin 10.1 GM/DL (14.0-18.0)
[2016-10-23] MEDS ORDERED: SODIUM BICARBONATE 50 MEQ/50 ML SYRINGE IV ONE ×2 (20:55)
[2016-10-23] MEDS: ESCITALOPRAM 10 MG TABLET PO SCH (21:05)
[2016-10-24] MEDS: ALBUTEROL/IPRATROPIUM 3 ML NEB RESP TX SCH ×6 (00:10→19:29)
[2016-10-24] MEDS: INSULIN LISPRO 100 UNIT/ML SUBCUT SCH ×6 (00:36→22:12)
[2016-10-24] MEDS: SODIUM CHLORIDE 0.9% 1,000 ML IV SCH ×2 (01:07→07:51)
[2016-10-24 04:05] LABS: Allen Test Positive
[2016-10-24 04:06] LABS: ABG Base Excess -10.5 MMOL/L (-2.5-2.5); ABG HCO3 16.6 MMOL/L (20-26); ABG Oxygen Saturation 96.5 % (95-100); ABG PCO2 41.5 MM HG (35-48); ABG PH 7.219 (7.35-7.45); ABG PO2 91.7 MM HG (80-95); ABG TCO2 17.8 MMOL/L (23-27)
[2016-10-24 04:54] LABS: Basophils % 0.3 % (0.0-0.8); Eosinophils # 0.1 10*3/uL (0.0-0.87); Eosinophils % 1.8 % (0.00-10.9); Hematocrit 26.8 VOL% (42.0-52.0); Hemoglobin 9.2 GM/DL (14.0-18.0); Immature Granulocytes % 0.5 %; Immature Granulocytes Absolute 0.03 #; Lymphocytes # 0.5 10*3/uL (1.4-4.0); Lymphocytes % 7.9 % (21.2-54.2); Mean Corpuscular HGB Conc 34.3 GM/DL (32-36); Mean Corpuscular Hemoglobin 32 PG (27-34); Mean Corpuscular Volume 93.7 FL (87-102); Mean Platelet Volume 10.9 FL (9.6-12.0); Monocytes # 0.6 10*3/uL (0.11-0.8); Monocytes % 9.5 % (1.7-12.7); Platelet Count 120 T/CUMM (130-400); Red Blood Count 2.86 MC/CUMM (3.8-5.5); Red Cell Distribution Width 14.3 % (9.3-17.3); White Blood Count 6.2 T/CUMM (4-12)
[2016-10-24 05:25] LABS: Calcium 7.5 MG/DL (8.5-10.1); Magnesium 1.6 MG/DL (1.8-2.4); Osmolality,Calculated 292.3 MOS/KG (273-304); Potassium 3.5 MMOL/L (3.5-5.1)
[2016-10-24 05:28] LABS: Band Neutrophils 1 % (0-10); Eosinophils 3 % (0-10); Lymphocytes 10 % (20-55); Platelet Estimate Normal; Segmented Neutrophils 79 % (50-85); Total Cells Counted 100
[2016-10-24 05:29] LABS: Hypochromasia 1+; Ovalocytes Slight
--- NOTE | 2016-10-24 07:21 | XRay Report ---
Portable chest Date: 10/24/2016 Clinical history: Chest tube Comparison: 10/23/2016 Technique: Portable AP sitting chest Findings: The heart is minimally enlarged with prior median sternotomy and cardiac valve replacement. No specific change in the position of the left chest tube with multiple displaced left rib fractures. No significant change in the adjacent parenchymal findings with minimally increased fluid within the previously noted left hydropneumothorax. Minimal subcutaneous emphysema. No significant change in the appearance of the right lung. Impression: No significant change in the position of the left chest tube patient with multiple displaced left rib fractures. Minimally increased fluid within the previously noted left hydropneumothorax. Additional fairly stable adjacent parenchymal findings. Prior median sternotomy and cardiac valve replacement. PROCEDURE INTERPRETED AT [facility] DEPARTMENT OF RADIOLOGY Final Report Signed by: Dr. Ansley Harding
[2016-10-24] MEDS ORDERED: MAGNESIUM OXIDE 400 MG TABLET PO ONE (08:58)
--- NOTE | 2016-10-24 08:58 | Hospitalist Progress Note ---
Hospitalist: Subjective Interval history: Mr Morse denies problems this morning. He is eating his breakfast and says his pain is controlled. He has noticed that he has not made any urine since admission. A/P- 1)DM- continue with med dose SSI. diabetic diet. HGBA1C is over 12- he says his blood sugars run in the 300s at home. 2)metabolic acidosis due to acute renal failure- Dr Wei to address fluids and acidosis this morning. I have coordinated care with him. Exam - Constitutional Vitals: Period Temp Pulse Resp BP Sys/Branch Pulse Ox Last 24 Hr 98.5 F-99.7 F 71-102 10-24 89-145/47-86 89-100 General appearance: normal weight, no acute distress - Eye Eye exam: Present: EOMI. Absent: scleral icterus - Respiratory Respiratory exam: Present: clear to auscultation bilaterally - Cardiovascular Cardiovascular exam: Present: irregular rhythm - GI/Abdominal GI/Abdominal exam: Present: normal bowel sounds, soft. Absent: tenderness - Extremities Exam Extremities exam: Absent: edema - Neurological Exam Neurological exam: Present: alert, oriented X3 - Skin Skin exam: Present: warm, dry Results - Labs CBC & BMP: 10/24/16 04:01 10/24/16 04:01 Lab Results: I have reviewed the past 24 hour labs
--- NOTE | 2016-10-24 08:59 | Cardiology Progress Note ---
Assessment and Plan (1) New onset atrial fibrillation Status: Acute Assessment and plan: SEE PLAN OF CARE LISTED BELOW. Current Visit: Yes (2) Acute kidney injury Status: Acute Assessment and plan: SEE PLAN OF CARE LISTED BELOW. Current Visit: Yes (3) Hemopneumothorax on left Status: Acute Assessment and plan: SEE PLAN OF CARE LISTED BELOW. Current Visit: Yes (4) History of hypertension Status: Chronic Assessment and plan: SEE PLAN OF CARE LISTED BELOW. Current Visit: Yes (5) History of insulin dependent diabetes mellitus Status: Chronic Assessment and plan: SEE PLAN OF CARE LISTED BELOW. Current Visit: Yes (6) Coronary artery disease Status: Chronic Assessment and plan: SEE PLAN OF CARE LISTED BELOW. Current Visit: Yes Qualifiers: Coronary Disease-Associated Artery/Lesion type: [place] artery [place] vs. transplanted heart: [place] heart Associated angina: without angina Qualified Code(s): I25.10 - Atherosclerotic heart disease of [place] coronary artery without angina pectoris (7) Anemia Status: Acute Assessment and plan: SEE PLAN OF CARE LISTED BELOW. Current Visit: Yes (8) Dyslipidemia Status: Chronic Assessment and plan: SEE PLAN OF CARE LISTED BELOW. Current Visit: Yes (9) Hypomagnesemia Status: Acute Assessment and plan: SEE PLAN OF CARE LISTED BELOW. Current Visit: Yes (10) Pulmonary contusion Status: Acute Assessment and plan: SEE PLAN OF CARE LISTED BELOW. Current Visit: Yes (11) Ribs, multiple fractures Status: Acute Assessment and plan: SEE PLAN OF CARE LISTED BELOW. Current Visit: Yes Qualifiers: Encounter type: initial encounter Fracture type: closed Laterality: left Qualified Code(s): S22.42XA - Multiple fractures of ribs, left side, initial encounter for closed fracture Cardiology - PN: Subj Interval history: HAND CLOTH EXAMINER: Dr. Mitchell SUMMARY Mr. Morse, 71-year-old male patient with known coronary artery disease, routinely followed by Dr. Mitchell. Patient's cardiac risk factors include: Known CAD (history of CABG), diabetes, dyslipidemia, hypertension and advanced age. No previous history of cardiomyopathy or atrial fibrillation. Patient had CABG [address] Wise. Patient presented to [facility] October 20, 2016 after being kicked by a donkey in his left side twice. He came to the emergency room was found to have a hemothorax chest tube was placed was admitted service of Dr. Grimes for surgery. Oct 21 the patient developed A. fib and was placed on Cardizem infusion. Patient has since converted back to normal sinus rhythm. Cardiology was consulted to further evaluate. OCTOBER 24, 2016 UPDATE Patient was seen and examined in the ICU. He is currently in sinus tachycardia , heart rates below 105. Echocardiogram this admission revealed preserved LV systolic function, ejection fraction 55%. No regional wall motion abnormality. No pericardial effusion. Moderate TR. He is without complaints of chest pain , heaviness and tightness. He also denies shortness of breath. Cardizem drip has been weaned off. At this point, patient's blood pressure is marginal. No longer requiring vasopressors. We will continue with a low-dose beta-blockade. Can increase AV randi blocking agents as blood pressure will tolerate to prevent further atrial fibrillation. Vitamin C will be added. Because of his anemia, I would not anticoagulate at this time he does have a chads score of greater than 2 which puts him at high risk for stroke in the long-term. Will discuss with Dr. Serrano regarding initiation of aspirin. Further recommendations to follow. ASSESSMENT/PLAN: 1. NEW ONSET ATRIAL FIBRILLATION - This is certainly multifactorial with many contributing factors this gentleman has a hemopneumothorax and a chest tube with inflammation. He was kicked in the left side of his chest near the PMI and cardiac contusion must be considered. Echocardiogram did not reveal any evidence of pericardial effusion. He also is anemic and has had renal insufficiency with some electrolyte disturbances and these also can contribute. Cardizem drip has been weaned off. At this point, patient's blood pressure is marginal. No longer requiring vasopressors. We will continue with low-dose beta-blockade. Can increase AV randi blocking agents if RVR returns and if blood pressure will allow. Because of his anemia, I would not anticoagulate at this time he does have a chads score of greater than 2 which puts him at high risk for stroke in the long-term. We will add vitamin C. Recommend initiation of aspirin when hemothorax improves. I will further discuss with Dr. Serrano and await his additional recommendations. 2. LEFT HEMOPNEUMOTHORAX - Chest tube in place. Management per surgery. 3. PULMONARY CONTUSION - Continue current plan of care. 4. MULTIPLE RIB FRACTURES - Pain under well control with ELECTROTYPE SERVICER pump. Management per surgery. 5. ACUTE KIDNEY INJURY - Creatinine is gone up significantly not sure if this is from blood loss anemia and hypoperfusion. Creatinine is gone from 1.5-4.2. Nephrology is following. Continue hydration. 6. HISTORY OF CORONARY ARTERY DISEASE - No clear evidence of ischemia subendocardial changes with A. fib with RVR hopefully controlling rate will be adequate he has not had angina course he has had chest pain from his trauma. Recommend reinitiation of aspirin when hemothorax improves. 7. DYSLIPIDEMIA - Continue lipid-lowering agent. Lipid panel in the morning. 8. HYPERTENSION - Under well control. Continue current plan of care. Will monitor blood pressure and adjust medications accordingly. 9. DIABETES - Clinically stable. Management per attending. 10. ANEMIA - Continue to cycle daily CBC. Transfuse as needed. 11 HYPOMAGNESEMIA - Daily BMP. One-time dose of magnesium ordered. Exam (Progress Note) - Constitutional Vitals: Period Temp Pulse Resp BP Sys/Branch Pulse Ox Last 24 Hr 98.5 F-99.7 F 71-102 10-24 89-145/47-86 89-100 Exam: General: Appears well with no apparent distress. Pleasant and cooperative. Appears comfortable. HEENT: PERRL, normocephalic, atraumatic. Mucous membranes moist. No jaundice noted. Conjunctiva moist and clear, sclerae anicteric Neck: No JVD/HJR, no thyromegaly or lymphadenopathy noted. No carotid bruit appreciated Cardiac: Regular rate and rhythm. Lungs: Clear to auscultation. Abdomen: Soft, bowel sounds normoactive. Nontender and nondistended. No abdominal bruit or thrill noted. No masses noted. Extremities: No clubbing, cyanosis noted. No edema noted. Upper extremity pulses 2+. Lower extremity pulses 2+. Capillary refill less than 3 seconds. Skin: No unusual lesions or rashes. No skin breakdown appreciated. Neuro: Awake, alert and oriented 3. Moves all extremities well without hemiparesis or paralysis. No essential tremor is appreciated. Result/EKG - Labs CBC & BMP: 10/24/16 04:01 10/24/16 04:01 Lab Results: I have reviewed the past 24 hour labs Labs: Laboratory Results - last 24 hr 10/23/16 10/23/16 10/23/16 11:21 14:07 16:24 WBC RBC Hgb 10.1 L Hct 30.3 L MCV MCH MCHC RDW Plt Count MPV Neut % (Auto) Lymph % (Auto) [place] % (Auto) Eos % (Auto) Baso % (Auto) Neut # (Auto) Lymph # (Auto) [place] # (Auto) Eos # (Auto) Baso # (Auto) Total Counted Immature Gran % Nucleated RBC % Immature Gran # Segmented Neutrophils Band Neutrophils Lymphocytes Monocytes Eosinophils Nucleated RBCs # Platelet Estimate Immature Plt Fraction Hypochromasia Ovalocytes Morphology Comment ABG pH ABG pCO2 ABG pO2 ABG HCO3 ABG Total CO2 ABG O2 Saturation ABG Base Excess FiO2 Sodium Potassium Chloride Carbon Dioxide Anion Gap BUN Creatinine GFR Calculation BUN/Creatinine Ratio Glucose POC Glucose 214 H 268 H Calculated Osmolality Calcium Magnesium Albumin 10/23/16 10/23/16 10/24/16 21:00 Unknown 00:31 WBC RBC Hgb Hct MCV MCH MCHC RDW Plt Count MPV Neut % (Auto) Lymph % (Auto) [place] % (Auto) Eos % (Auto) Baso % (Auto) Neut # (Auto) Lymph # (Auto) [place] # (Auto) Eos # (Auto) Baso # (Auto) Total Counted Immature Gran % Nucleated RBC % Immature Gran # Segmented Neutrophils Band Neutrophils Lymphocytes Monocytes Eosinophils Nucleated RBCs # Platelet Estimate Immature Plt Fraction Hypochromasia Ovalocytes Morphology Comment ABG pH ABG pCO2 ABG pO2 ABG HCO3 ABG Total CO2 ABG O2 Saturation ABG Base Excess FiO2 Sodium Potassium Chloride Carbon Dioxide Anion Gap BUN Creatinine GFR Calculation BUN/Creatinine Ratio Glucose POC Glucose 270 H 204 H Calculated Osmolality Calcium Magnesium Albumin 2.8 L 10/24/16 10/24/16 10/24/16 03:30 03:58 04:01 WBC RBC Hgb Hct MCV MCH MCHC RDW Plt Count MPV Neut % (Auto) Lymph % (Auto) [place] % (Auto) Eos % (Auto) Baso % (Auto) Neut # (Auto) Lymph # (Auto) [place] # (Auto) Eos # (Auto) Baso # (Auto) Total Counted Immature Gran % Nucleated RBC % Immature Gran # Segmented Neutrophils Band Neutrophils Lymphocytes Monocytes Eosinophils Nucleated RBCs # Platelet Estimate Immature Plt Fraction Hypochromasia Ovalocytes Morphology Comment ABG pH 7.219 L ABG pCO2 41.5 ABG pO2 91.7 ABG HCO3 16.6 L ABG Total CO2 17.8 L ABG O2 Saturation 96.5 ABG Base Excess -10.5 L FiO2 28.00 Sodium 141 Potassium 3.5 Chloride 111 H Carbon Dioxide 17 L Anion Gap 16.5 H BUN 38 H Creatinine 4.20 H GFR Calculation 14 BUN/Creatinine Ratio 9.00 Glucose 152 H POC Glucose 182 H Calculated Osmolality 292.3 Calcium 7.5 L Magnesium 1.6 L Albumin 10/24/16 04:01 WBC 6.2 D RBC 2.86 L Hgb 9.2 L Hct 26.8 L MCV 93.7 MCH 32 MCHC 34.3 RDW 14.3 Plt Count 120 L MPV 10.9 Neut % (Auto) 80.0 H Lymph % (Auto) 7.9 L [place] % (Auto) 9.5 Eos % (Auto) 1.8 Baso % (Auto) 0.3 Neut # (Auto) 5.0 Lymph # (Auto) 0.5 L [place] # (Auto) 0.6 Eos # (Auto) 0.1 Baso # (Auto) 0.0 Total Counted 100 Immature Gran % 0.5 Nucleated RBC % 0.0 Immature Gran # 0.03 Segmented Neutrophils 79 Band Neutrophils 1 Lymphocytes 10 L Monocytes 7 Eosinophils 3 Nucleated RBCs # 0.00 Platelet Estimate Normal Immature Plt Fraction 0.0 Hypochromasia 1+ Ovalocytes Slight Morphology Comment ABG pH ABG pCO2 ABG pO2 ABG HCO3 ABG Total CO2 ABG O2 Saturation ABG Base Excess FiO2 Sodium Potassium Chloride Carbon Dioxide Anion Gap BUN Creatinine GFR Calculation BUN/Creatinine Ratio Glucose POC Glucose Calculated Osmolality Calcium Magnesium Albumin
[2016-10-24] MEDS ORDERED: SODIUM BICARBONATE 50 MEQ/50 ML SYRINGE IV ONE (09:25)
--- NOTE | 2016-10-24 09:35 | Nephrology Progress Note ---
Nephrology - PN: Subj Interval history: Mr. Morse is seen in follow-up of his acute renal failure following chest trauma. His creatinine is risen to 4.2 is measured bicarb 17 and arterial pH 7.22 with a PCO2 41. He still appears in no distress but has difficulty taking a deep breath as expected. He does have peripheral edema 1+ of the legs and also the forearms. He apparently had some mild hypotension early in the hospital stay and the renal injury is likely due to a combination of factors involving altered renal perfusion but I think for now things are optimized in the sense that he has a good blood pressure is volume replete and off nephrotoxic drugs should he progress to a need for dialysis certainly we could do that and we have discussed that with patient today he understands that we think that would be a temporary thing should it occur and with his oliguria he may well need dialysis in the next day or 2. We will give IV bicarb today and begin p.o. bicarb Exam (PN)-Nephrology - Vital Signs Vital signs: Period Temp Pulse Resp BP Sys/Branch Pulse Ox Last 24 Hr 98.5 F-99.7 F 71-102 10-24 89-145/47-86 89-100 - Lab 10/24/16 04:01 10/24/16 04:01 Most recent lab results ABG pH 7.219 (7.35-7.45) L 10/24/16 03:30 ABG pCO2 41.5 MM HG (35-48) 10/24/16 03:30 ABG pO2 91.7 MM HG (80-95) 10/24/16 03:30 ABG HCO3 16.6 MMOL/L (20-26) L 10/24/16 03:30 ABG O2 Saturation 96.5 % (95-100) 10/24/16 03:30 Calcium 7.5 MG/DL (8.5-10.1) L 10/24/16 04:01 Magnesium 1.6 MG/DL (1.8-2.4) L 10/24/16 04:01 Assessment and Plan (1) Acute kidney injury Status: Acute Current Visit: Yes (2) Ribs, multiple fractures Status: Acute Current Visit: Yes Qualifiers: Encounter type: initial encounter Fracture type: closed Laterality: left Qualified Code(s): S22.42XA - Multiple fractures of ribs, left side, initial encounter for closed fracture (3) History of insulin dependent diabetes mellitus Status: Chronic Current Visit: Yes (4) Coronary artery disease Status: Chronic Current Visit: Yes Qualifiers: Coronary Disease-Associated Artery/Lesion type: [place] artery [place] vs. transplanted heart: [place] heart Associated angina: without angina Qualified Code(s): I25.10 - Atherosclerotic heart disease of [place] coronary artery without angina pectoris
--- NOTE | 2016-10-24 10:37 | General Surgery Progress Note ---
Assessment and Plan (1) Hemopneumothorax on left Status: Acute Assessment and plan: Continue chest tube. 620cc output last 24 hrs - persistent. We will continue to monitor serial H&H as well as output. Oxygen as needed with pain management and incentive spirometer. Repeat CXR in am. Anticipate nerve block for better pain mgmt today per RN. Current Visit: Yes (2) Ribs, multiple fractures Status: Acute Assessment and plan: As above Current Visit: Yes Qualifiers: Encounter type: initial encounter Fracture type: closed Laterality: left Qualified Code(s): S22.42XA - Multiple fractures of ribs, left side, initial encounter for closed fracture (3) Acute renal failure Status: Acute Assessment and plan: Associated with metabolic acidosis. Managed by nephrology - appreciate input. Current Visit: Yes (4) Atrial fibrillation Status: Acute Assessment and plan: Currently in sinus rhythm. Managed by cardiology - appreciate input. Current Visit: Yes (5) History of hypertension Status: Chronic Assessment and plan: Off pressors now. Current Visit: Yes (6) History of insulin dependent diabetes mellitus Status: Chronic Assessment and plan: Poorly controlled at home. Diabetic diet and sliding scale. Appreciate hospitalist input. Current Visit: Yes (7) Hyperkalemia Status: Acute Assessment and plan: Resolved. Current Visit: Yes (8) Prophylactic measure Status: Acute Assessment and plan: DVT prophylaxis: SID hose in place. Hold pharmacologic prophylaxis considering hemothorax. GI prophylaxis: PPI daily Current Visit: Yes Subjective Patient reports: Present: no new complaints (Tolerating diet. Passing flatus. Afebrile. Reports pain controlled. ) Narrative: All salesforce consultant recommendations reviewed and appreciated. Exam - Constitutional Vitals: Period Temp Pulse Resp BP Sys/Branch Pulse Ox Last 24 Hr 98.5 F-99.7 F 71-102 10-24 89-145/49-86 89-100 General appearance: no acute distress - Head Head exam: Present: atraumatic - Neck Neck exam: Present: trachea midline - Respiratory Respiratory exam: Present: other (clear on right; diminished on left. Chest tube with serosanguinous output. No airleak noted.) - Cardiovascular Cardiovascular exam: Present: RRR - GI/Abdominal GI/Abdominal exam: Present: soft, other (hypoactive bowel sounds). Absent: tenderness - Extremities Exam Extremities exam: Present: other (1+ edema bilateral UE and LE) - Neurological Exam Neurological exam: Present: alert, oriented X3 Results - Labs CBC & BMP: 10/24/16 04:01 10/24/16 04:01 Lab Results: I have reviewed the past 24 hour labs - Impressions Urine output remains low with worsening renal function; persistent metabolic acidosis - urology following Chest tube output serosanguinous - 620cc last 24 hrs; 200cc this am H/h stable
--- NOTE | 2016-10-24 10:47 | Pulmonology Progress Note ---
Pulmonary - PN: Subj Interval history: This is a 71-year-old white male whom I saw in pulmonary consultation on 2016. My impressions were. #1: Acute left-sided hemopneumothorax status post trauma after being kicked by his [place]. This required chest tube placement which is being managed by Dr. Maxwell. #2: Hyperkalemia. On review the patient's home medications he was taking spironolactone and lisinopril. This is almost certainly the cause of this. He is already been given Kayexalate. We agree with this and will hold the spironolactone and lisinopril for the time being. 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 Since that time the patient's potassiums have come under control. He has developed renal failure. His creatinine is increased from 1.50-2.20. I appreciate Dr. Mika Wei's nephrology consultation. Today I have consulted pain medicine for possible nerve block. Patient has quite a bit of pain from his fractured ribs. ABGs on FiO2 28% show a pH of 7.219, PCO2 of 41.5, PO2 91.6 and a bicarb of 16.6. Patient's chest x-ray show left lower lung contusion with associated fluid. Patient has developed a small amount of fluid at the base of his right lung and his BNP has increased to 1148. I suspect that we are dealing with an element of congestive heart failure. I have ordered an echocardiogram. And I have consulted cardiology. Note that the patient's hemoglobin A1c is 11.0. His glucoses are now coming under pretty good control. H&H is 9.2/26.8. White count is dropped 6200 and platelets are 120,000. Repeat urinalysis. Check sputum for Gram stain culture and sensitivity Physical exam. Vital signs. See below. Most temps for the last 3 days have been in the 99's. Psychiatric. Oriented 3 Face. Symmetrical. No edema of the lips or tongue Neck. Symmetrical. No meningismus Lymphatics. No submandibular cervical supraclavicular or epitrochlear adenopathy Chest. Decreased inspiratory excursion. Breath sounds are clear Heart. No definite gallop. Extremities. No definite deep venous thrombophlebitis. The remainder the exam is negative. Plan: 10/21/2016 #1: Hold spironolactone and lisinopril #2: We will add Flector patch for pain control in addition to his already ordered medications #3: Dr. Maxwell is managing the patient's chest tube #4: Daily chest x-ray and labs #5: Inhalation therapy #6: See orders 10/24/2016 1. Pain medicine consultation for possible nerve block 2. Echocardiogram 3. Cardiology consultation 4. As per Dr. Wei. We have discussed the case and coordinated our care. Patient appears to have acute tubular necrosis and will probably require short- term dialysis. See Dr. Wei's note. 5. Follow chest x-ray 6. Urinalysis 7. Sputum for Gram stain culture and sensitive Exam (Progress Note) - Constitutional Vitals: Period Temp Pulse Resp BP Sys/Branch Pulse Ox Last 24 Hr 98.5 F-99.7 F 71-102 10-24 89-145/49-86 89-100 Results - Labs CBC & BMP: 10/24/16 04:01 10/24/16 04:01
[2016-10-24] MEDS: ASCORBIC ACID 500 MG TABLET PO SCH ×2 (11:28→21:59)
[2016-10-24] MEDS: ATORVASTATIN 20 MG TABLET PO SCH (11:28)
[2016-10-24] MEDS: CARVEDILOL 6.25 MG TABLET PO SCH ×2 (11:28→21:59)
[2016-10-24] MEDS: PANTOPRAZOLE 40 MG VIAL IV SCH (11:28)
[2016-10-24] MEDS ORDERED: ROPIVACAINE 0.5% 30 ML VIAL NERVEBLOCK ONE (11:38)
[2016-10-24] MEDS ORDERED: TRIAMCINOLONE ACETONIDE 40 MG/1 ML VIAL MISC INJ ONE (11:39)
[2016-10-24] MEDS: DOPamine 800 MG/250 ML PREMIX IV SCH (13:15)
[2016-10-24] MEDS: DICLOFENAC 1.3% PATCH 5/PACK TRANSDERM SCH (13:16)
[2016-10-24] MEDS: HYDROmorphone PCA 30 MG/30 ML SYRINGE IV SCH ×2 (13:17→23:12)
[2016-10-24] MEDS ORDERED: ALBUTEROL/IPRATROPIUM 3 ML NEB RESP TX PRN (13:47)
--- NOTE | 2016-10-24 13:47 | Pain Management Consult Note ---
Assessment and Plan (1) Ribs, multiple fractures Problem details: Rib fractures left T2 through T5 Status: Acute Assessment and plan: 10/24/2016. The patient sustained trauma left chest wall and kicked by horse. Fractured left T2 through T5. He is having trouble with deep breathing and coughing clearing secretions due to the pain. It is reasonable to consider intercostal nerve block the left at this point so that we can start cutting back on the opioid consumption and to help with pulmonary toilet and mobilization. Typically pain relief lasted approximately 24 hours with the injection and then when the pain returns often is not nearly as bad as it was prior to the procedure. It is reasonable to repeat the procedure as needed. y Current Visit: Yes Qualifiers: Encounter type: initial encounter Fracture type: closed Laterality: left Qualified Code(s): S22.42XA - Multiple fractures of ribs, left side, initial encounter for closed fracture History of Present Illness Chief complaint: Left chest wall pain History of present illness: Mr. Morse is a 71 year old male who complains of left chest wall pain since kicked by horse several days ago. It is a throbbing aching pain that interferes with deep breathing and coughing. Because of the pain he does not breathe deeply or cough. He reports that is a sharp stabbing discomfort with aching background. Home Medications Medication Instructions Recorded Confirmed Type Aspirin 81 mg PO DAILY 10/21/16 10/21/16 History Atorvastatin [Lipitor] 20 mg PO DAILY 10/21/16 10/21/16 History Carvedilol [Carvedilol] 6.25 mg PO BID 10/21/16 10/21/16 History Escitalopram [Lexapro] 20 mg PO BEDTIME 10/21/16 10/21/16 History Glimepiride [Glimepiride] 2 mg PO BID 10/21/16 10/21/16 History Insulin Aspart [Novolog] See Protocol SQ BID PRN 10/21/16 10/21/16 History Insulin Glargine [Lantus] 10 units SUBCUT BID 10/21/16 10/21/16 History Lisinopril [Lisinopril] 10 mg PO BID 10/21/16 10/21/16 History Spironolactone [Spironolactone] 25 mg PO DAILY 10/21/16 10/21/16 History Allergies Allergy/AdvReac Type Severity Reaction Status Date / Time No Known Allergies Allergy Verified 10/20/16 19:27 Medical,Surgical,& Family Hx - Medical History Cardio: History of: Cerebrovascular Disease, CAD, Hypertension, PR HEENT: History of: HEENT Problems (cataracts) Endocrine: History of: Diabetes Mellitus (IDDM), Diabetes Mellitus (NIDDM), Dyslipidemia Musculoskeletal: History of: Back/Neck Problems - Surgical History Cardiac Surgeries: Sugical HX of: Cardiac Catheterization, Cardiac Surgery ( CABG by Dr. Wise 2010) Reproductive Surgeries: Patient denies;: Genitourinary Surgery - Family History Family History: Reports;: Family Heart Disease Denies;: Additional Family History - Social History Smoking Status: Never smoker Frequency of Alcohol Use: None Type of Drug Use: None - Constitutional Constitutional: Present: daytime sleepiness - Cardiovascular Cardiovascular: Present: chest pain with activity - Musculoskeletal Musculoskeletal: Present: arthralgias, back pain Exam - Constitutional Vitals: Period Temp Pulse Resp BP Sys/Branch Pulse Ox Last 24 Hr 98.8 F-99.7 F 86-102 10-24 89-145/49-86 89-100 General appearance: normal weight - Neck Neck exam: Present: normal inspection - Respiratory Respiratory exam: Present: wheezes, other (Left sided chest tube) - Cardiovascular Cardiovascular exam: Present: RRR - GI/Abdominal GI/Abdominal exam: Present: hypoactive bowel sounds - Back Exam Back exam: Present: vertebral tenderness - Neurological Exam Neurological exam: Present: alert, oriented X3 Results - Labs CBC & BMP: 10/24/16 04:01 10/24/16 04:01
--- NOTE | 2016-10-24 13:51 | Operative Note ---
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 Postoperative diagnosis: Same Procedure: Intercostal nerve block left T2, T3, T4, and T5. Anesthesia: Local Complications: None Findings: Patient tolerated the procedure well with improvement of his pain. History of present illness: Please see separate note. Also the patient was kicked by horse and has multiple rib fractures and difficulty with pulmonary toilet and mobilization. If we can control his pain and is reasonable to get him up and walking and improved pulmonary toilet. Procedure note: The risk benefits and indications of the procedure were explained to the patient, including option to do nothing all, he understood these and wished to proceed. The patient was placed in the seated position in the left posterior upper back was prepped with alcohol then using 25-gauge 1/2 inch needle the second third fourth and fifth intercostal nerves were blocked approximately 5-6 cm lateral to the midline. This is done by walking the tip of the needle which is a 25-gauge 1/2 inch needle off the inferior aspect of each of these ribs into the area of the intercostal nerve with care to avoid the pleura. It each level I injected 3-4 cc of 0.5% ropivacaine plus Kenalog. He received a total of 16 cc of the local anesthetic and 20 mg of Kenalog. He tolerated the procedure well. Surgeon / Physician: Phillip Merino Estimated blood loss: none Specimens: none sent Condition: stable Disposition: ICU Results - Labs CBC & BMP: 10/24/16 04:01 10/24/16 04:01 Discharge Plan - Discharge Medications No Action Spironolactone [Spironolactone] 25 mg PO DAILY Lisinopril [Lisinopril] 10 mg PO BID Insulin Aspart [Novolog] See Protocol SQ BID PRN PRN Reason: Glucose Management Glimepiride [Glimepiride] 2 mg PO BID Escitalopram [Lexapro] 20 mg PO BEDTIME Carvedilol [Carvedilol] 6.25 mg PO BID Atorvastatin [Lipitor] 20 mg PO DAILY Insulin Glargine [Lantus] 10 units SUBCUT BID Aspirin 81 mg PO DAILY - Follow Up or Referral - Forms/Instructions
[2016-10-24] MEDS: SODIUM BICARBONATE 650 MG TABLET PO SCH ×2 (15:15→21:58)
--- NOTE | 2016-10-24 15:58 | XRay Report ---
History: Post nerve block Date: 10/24/2016 at 2:51 PM Study: Chest x-ray AP portable Comparison exam: 10/24/2016 at 2:51 AM There is stable cardiomegaly. The mediastinal contours are unchanged in this patient status post prior median sternotomy and cardiac valve replacement. Numerous rib fractures are noted on the left. There is some continued residual hydropneumothorax in the left lung base, with decreased fluid component compared to the earlier study. There is continued bibasilar atelectasis/edema. There is continued mild right-sided pleural effusion. The exam is otherwise unchanged. Impression: Stable positioning of the left chest tube. Continued left basilar hydropneumothorax with decreased fluid component compared to the earlier study. No increasing free pneumothorax is seen with confidence. Continued bibasilar edema/atelectasis and small right pleural effusion as before. Numerous rib fractures on the left as before PROCEDURE INTERPRETED AT [facility] DEPARTMENT OF RADIOLOGY Final Report Signed by: Dr. Mary Carrasquillo
[2016-10-24] MEDS: COLLAGENASE OINT 30 GM TUBE TOP SCH (16:40)
[2016-10-24] MEDS: BACITRACIN OINT 0.9 GM PACK TOP SCH (16:40)
[2016-10-24 17:35] LABS: Apearance,Urine CLOUDY (Clear); Bilirubin,Urine Negative (Negative); Blood, Urine Moderate mg/dL (Negative); Glucose,Urine (UA) 50 mg/dL (Negative); Ketones,Urine Negative (Negative); Mucus,Urine Occasional /LPF (Occasional); Nitrite,Urine Negative (Negative); Protein,Urine 100 MG/DL; RBC,Urine 32 /HPF (0-4); Squamous Epithelial Cell,Urine Occasional /HPF (0-10); Urine Color Yellow (Yellow); Urine Specific Gravity 1.012 (1.001-1.035); Urine Urobilinogen < 2.0 EU/DL (0.2-1.0); WBC,Urine 73 /HPF (0-6)
[2016-10-24 19:47] LABS: ABG Base Excess -12.6 MMOL/L (-2.5-2.5); ABG HCO3 14.1 MMOL/L (20-26); ABG Oxygen Saturation 92.9 % (95-100); ABG PCO2 34.8 MM HG (35-48); ABG PH 7.224 (7.35-7.45); ABG PO2 64.3 MM HG (80-95); ABG TCO2 15.1 MMOL/L (23-27)
[2016-10-24] MEDS: ESCITALOPRAM 10 MG TABLET PO SCH (21:58)
[2016-10-25] MEDS: INSULIN LISPRO 100 UNIT/ML SUBCUT SCH ×6 (00:26→21:19)
[2016-10-25 05:02] LABS: Basophils % 0.2 % (0.0-0.8); Hemoglobin 9.7 GM/DL (14.0-18.0); Immature Granulocytes % 0.6 %; Immature Granulocytes Absolute 0.04 #; Lymphocytes # 0.3 10*3/uL (1.4-4.0); Lymphocytes % 4.4 % (21.2-54.2); Mean Corpuscular HGB Conc 34.6 GM/DL (32-36); Mean Corpuscular Hemoglobin 32 PG (27-34); Mean Platelet Volume 10.6 FL (9.6-12.0); Monocytes # 0.5 10*3/uL (0.11-0.8); Monocytes % 7.2 % (1.7-12.7); Neutrophils # 5.6 10*3/uL (1.4-7.4); Neutrophils % 87.6 % (38.7-73.9); Platelet Count 150 T/CUMM (130-400); Red Blood Count 3.01 MC/CUMM (3.8-5.5); Red Cell Distribution Width 13.9 % (9.3-17.3); White Blood Count 6.4 T/CUMM (4-12)
[2016-10-25 05:32] LABS: Band Neutrophils 2 % (0-10); Hypochromasia 1+; Lymphocytes 4 % (20-55); Segmented Neutrophils 91 % (50-85); Total Cells Counted 100
[2016-10-25 05:33] LABS: Microcytosis 1+; Ovalocytes Slight; Platelet Estimate Adequate
[2016-10-25 05:50] LABS: Calcium 7.6 MG/DL (8.5-10.1); Magnesium 1.8 MG/DL (1.8-2.4); Osmolality,Calculated 296.3 MOS/KG (273-304); Potassium 3.7 MMOL/L (3.5-5.1)
[2016-10-25 06:06] LABS: Risk Ratio 1.74; VLDL CHOLESTEROL 12.6 MG/DL
[2016-10-25] MEDS: ALBUTEROL/IPRATROPIUM 3 ML NEB RESP TX SCH ×4 (07:00→19:26)
--- NOTE | 2016-10-25 08:24 | XRay Report ---
Portable chest Date: 10/25/2016 Clinical history: Hemopneumothorax Comparison: 10/24/2016 Technique: Portable AP sitting chest Findings: Stable cardiomegaly in patient with prior median sternotomy with cardiac valve replacement. Stable left chest tube with smaller left hemopneumothorax. Minimally reduced atelectasis in the left lung adjacent multiple displaced left rib fractures. More stable pleural-parenchymal findings at the right lung base. Degenerative changes are noted. Impression: Stable left chest tube with smaller left hemopneumothorax. Reduced atelectasis in the left lung adjacent to the multiple displaced left rib fractures. More stable atelectasis/infiltration/edema at the right lung base with small right pleural effusion. PROCEDURE INTERPRETED AT [facility] DEPARTMENT OF RADIOLOGY Final Report Signed by: Dr. Ansley Harding
--- NOTE | 2016-10-25 08:33 | Nephrology Progress Note ---
Nephrology - PN: Subj Interval history: Mr. Morse is seen in follow-up of his acute renal failure. His creatinine is up to 5 having risen from 4.2 yesterday he is oliguric. Blood pressure stable he did have good bit of shortness of breath last night. His chest x-ray demonstrates some evidence of fluid accumulation. He does have a good bit of peripheral edema as well. Electrolytes are reasonable but with his accumulation of fluid it may be rodriguez to proceed with dialysis will talk with Dr. Grimes about vascular access and we can dialyze him to remove volume as needed Exam (PN)-Nephrology - Vital Signs Vital signs: Period Temp Pulse Resp BP Sys/Branch Pulse Ox Last 24 Hr 98.6 F-99.5 F 67-99 12-89 81-180/39-111 85-98 - Lab 10/25/16 03:49 10/25/16 03:49 Most recent lab results ABG pH 7.224 (7.35-7.45) L 10/24/16 19:40 ABG pCO2 34.8 MM HG (35-48) L 10/24/16 19:40 ABG pO2 64.3 MM HG (80-95) L 10/24/16 19:40 ABG HCO3 14.1 MMOL/L (20-26) L 10/24/16 19:40 ABG O2 Saturation 92.9 % (95-100) L 10/24/16 19:40 Calcium 7.6 MG/DL (8.5-10.1) L 10/25/16 03:49 Magnesium 1.8 MG/DL (1.8-2.4) 10/25/16 03:49 Assessment and Plan (1) Acute kidney injury Status: Acute Current Visit: Yes (2) Ribs, multiple fractures Problem details: Rib fractures left T2 through T5 Status: Acute Current Visit: Yes Qualifiers: Qualified Code(s): S22.42XA - Multiple fractures of ribs, left side, initial encounter for closed fracture (3) History of insulin dependent diabetes mellitus Status: Chronic Current Visit: Yes (4) Coronary artery disease Status: Chronic Current Visit: Yes Qualifiers: Qualified Code(s): I25.10 - Atherosclerotic heart disease of [place] coronary artery without angina pectoris
--- NOTE | 2016-10-25 08:37 | Cardiology Progress Note ---
Addendum entered and electronically signed by Adelita Chery NP 10/25/16 08:40 : Patient does appear to have acute UTI. Urine culture results pending. I will defer management of this to hospital medicine. Original Note: Assessment and Plan (1) New onset atrial fibrillation Status: Acute Assessment and plan: SEE PLAN OF CARE LISTED BELOW. Current Visit: Yes (2) Acute kidney injury Status: Acute Assessment and plan: SEE PLAN OF CARE LISTED BELOW. Current Visit: Yes (3) Hemopneumothorax on left Status: Acute Assessment and plan: SEE PLAN OF CARE LISTED BELOW. Current Visit: Yes (4) History of hypertension Status: Chronic Assessment and plan: SEE PLAN OF CARE LISTED BELOW. Current Visit: Yes (5) History of insulin dependent diabetes mellitus Status: Chronic Assessment and plan: SEE PLAN OF CARE LISTED BELOW. Current Visit: Yes (6) Coronary artery disease Status: Chronic Assessment and plan: SEE PLAN OF CARE LISTED BELOW. Current Visit: Yes Qualifiers: Coronary Disease-Associated Artery/Lesion type: [place] artery [place] vs. transplanted heart: [place] heart Associated angina: without angina Qualified Code(s): I25.10 - Atherosclerotic heart disease of [place] coronary artery without angina pectoris (7) Anemia Status: Acute Assessment and plan: SEE PLAN OF CARE LISTED BELOW. Current Visit: Yes (8) Dyslipidemia Status: Chronic Assessment and plan: SEE PLAN OF CARE LISTED BELOW. Current Visit: Yes (9) Hypomagnesemia Status: Acute Assessment and plan: SEE PLAN OF CARE LISTED BELOW. Current Visit: Yes (10) Pulmonary contusion Status: Acute Assessment and plan: SEE PLAN OF CARE LISTED BELOW. Current Visit: Yes (11) Ribs, multiple fractures Problem details: Rib fractures left T2 through T5 Status: Acute Assessment and plan: SEE PLAN OF CARE LISTED BELOW. Current Visit: Yes Qualifiers: Encounter type: initial encounter Fracture type: closed Laterality: left Qualified Code(s): S22.42XA - Multiple fractures of ribs, left side, initial encounter for closed fracture Cardiology - PN: Subj Interval history: [employer] OTHER RANKS: Dr. Mitchell SUMMARY Mr. Morse, 71-year-old male patient with known coronary artery disease, routinely followed by Dr. Mitchell. Patient's cardiac risk factors include: Known CAD (history of CABG), diabetes, dyslipidemia, hypertension and advanced age. No previous history of cardiomyopathy or atrial fibrillation. Patient had CABG [address] Wise. Patient [facility] to [facility] October 20, 2016 after being kicked by a donkey in his left side twice. He came to the emergency room was found to have a hemothorax chest tube was placed was admitted service of Dr. Grimes for surgery. Oct 21 the patient developed A. fib and was placed on Cardizem infusion. Patient has since converted back to normal sinus rhythm. Cardiology was consulted to further evaluate. OCTOBER 24, 2016 Patient was seen and examined in the ICU. He is currently in sinus tachycardia , heart rates below 105. Echocardiogram this admission revealed preserved LV systolic function, ejection fraction 55%. No regional wall motion abnormality. No pericardial effusion. Moderate TR. He is without complaints of chest pain , heaviness and tightness. He also denies shortness of breath. Cardizem drip has been weaned off. At this point, patient's blood pressure is marginal. No longer requiring vasopressors. We will continue with a low-dose beta-blockade. Can increase AV randi blocking agents as blood pressure will tolerate to prevent further atrial fibrillation. Vitamin C will be added. Because of his anemia, I would not anticoagulate at this time he does have a chads score of greater than 2 which puts him at high risk for stroke in the long-term. Will discuss with Dr. Serrano regarding initiation of aspirin. Further recommendations to follow. OCTOBER 25, 2016 Patient was seen and examined in the ICU. Remains in normal sinus rhythm. Heart rates in the 90s. Patient tells me that last night he became dyspneic while nurses were giving him a bath and changing his sheets. This morning, this has resolved. He appears comfortable and is in no apparent distress. Requiring oxygen via nasal cannula. Chest tube in place. Continues to drain serosanguineous fluid. Creatinine this morning continues to rise. 5.0 this morning. Oliguria. Nephrology is following. Anticipate dialysis in the next day or 2. This will most likely be temporary. Pain management is following. Nerve block was performed yesterday. Patient's pain appears to be well controlled currently. Patient continues to be anemic. However this has improved overnight. 9.7 and 28.0 this morning. Patient has received 2 units of packed red blood cells this hospitalization. We will continue to monitor trend and transfuse as needed. At this point, patient is doing well from a cardiac standpoint. We will continue current plan of care with beta-blockade and vitamin C. Continue to optimize his electrolytes and monitor telemetry for recurrent rhythm disturbances. Will continue to hold off on adding anticoagulation until his hemothorax/anemia improves. I will further discuss with Dr. Serrano and await his additional recommendations. ASSESSMENT/PLAN: 1. NEW ONSET ATRIAL FIBRILLATION - Patient remains in normal sinus rhythm. Continue current plan of care with beta-blockade and vitamin C. We will continue to optimize his electrolytes and monitor telemetry for recurrent rhythm disturbances. Because of his anemia as well as hemothorax, I would not anticoagulate at this time. However, he does have a chads score of greater than 2 which puts him at high risk for stroke in the long-term. Will consider adding long-term anticoagulation once his anemia and hemothorax improves. I will further discuss with Dr. Serrano and await his additional recommendations. 2. LEFT HEMOPNEUMOTHORAX - Chest tube in place. Management per surgery. 3. PULMONARY CONTUSION - Continue current plan of care. 4. MULTIPLE RIB FRACTURES - Pain under well control with [employer] pump. Pain management following. Patient had nerve block yesterday. 5. ACUTE KIDNEY INJURY - Creatinine is gone up significantly. Not sure if this is from blood loss anemia and hypoperfusion. Creatinine is gone from 1.5- 2.5. Nephrology is following. Anticipate dialysis in the next day or 2. 6. HISTORY OF CORONARY ARTERY DISEASE - No clear evidence of ischemia. Without anginal symptoms. Echo revealed preserved LV systolic function. No regional wall motion abnormality. Recommend reinitiation of aspirin when hemothorax improves. 7. DYSLIPIDEMIA - Continue lipid-lowering agent. Lipid panel reviewed. LDL at goal. 8. HYPERTENSION - Isolated hypertension noted at time. Suspect this is related to pain. We will monitor this for now. Continue current plan of care. 9. DIABETES - Clinically stable. Management per attending. 10. ANEMIA - Improved. Continue to cycle daily CBC. Transfuse as needed. 11 HYPOMAGNESEMIA - Resovled. Daily BMP. Exam (Progress Note) - Constitutional Vitals: Period Temp Pulse Resp BP Sys/Branch Pulse Ox Last 24 Hr 98.6 F-99.5 F 67-99 12-89 81-180/39-111 85-98 Exam: General: Appears well with no apparent distress. Pleasant and cooperative. Appears comfortable. HEENT: PERRL, normocephalic, atraumatic. Mucous membranes moist. No jaundice noted. Conjunctiva moist and clear, sclerae anicteric Neck: No JVD/HJR, no thyromegaly or lymphadenopathy noted. No carotid bruit appreciated Cardiac: Regular rate and rhythm. Lungs: Clear to auscultation. Chest wall: Left chest tube noted. Abdomen: Soft, bowel sounds normoactive. Nontender and nondistended. No abdominal bruit or thrill noted. No masses noted. Extremities: No clubbing, cyanosis noted. No edema noted. Upper extremity pulses 2+. Lower extremity pulses 2+. Capillary refill less than 3 seconds. Skin: No unusual lesions or rashes. No skin breakdown appreciated. Neuro: Awake, alert and oriented 3. Moves all extremities well without hemiparesis or paralysis. No essential tremor is appreciated. Result/EKG - Labs CBC & BMP: 10/25/16 03:49 10/25/16 03:49 Lab Results: I have reviewed the past 24 hour labs Labs: Laboratory Results - last 24 hr 10/24/16 10/24/16 10/24/16 07:56 09:00 12:13 WBC RBC Hgb Hct MCV MCH MCHC RDW Plt Count MPV Neut % (Auto) Lymph % (Auto) [place] % (Auto) Eos % (Auto) Baso % (Auto) Neut # (Auto) Lymph # (Auto) [place] # (Auto) Eos # (Auto) Baso # (Auto) Total Counted Immature Gran % Nucleated RBC % Immature Gran # Segmented Neutrophils Band Neutrophils Lymphocytes Monocytes Nucleated RBCs # Platelet Estimate Immature Plt Fraction Hypochromasia Microcytosis Ovalocytes Morphology Comment ABG pH ABG pCO2 ABG pO2 ABG HCO3 ABG Total CO2 ABG O2 Saturation ABG Base Excess Sodium Potassium Chloride Carbon Dioxide Anion Gap BUN Creatinine GFR Calculation BUN/Creatinine Ratio Glucose POC Glucose 212 H 289 H Calculated Osmolality Calcium Magnesium B-Natriuretic Peptide 1148 H Triglycerides Cholesterol LDL Cholesterol VLDL Cholesterol HDL Cholesterol Heart Disease Risk Ratio Urine Color Urine Appearance Urine pH Ur Specific [place] Urine Protein Urine Glucose (UA) Urine Ketones Urine Blood Urine Nitrate Urine Bilirubin Urine Urobilinogen Urine Leukocytes Urine RBC Urine WBC Ur Squamous Epith Cells Urine Mucus Ur Culture Indicated? 10/24/16 10/24/16 10/24/16 14:35 16:49 19:40 WBC RBC Hgb Hct MCV MCH MCHC RDW Plt Count MPV Neut % (Auto) Lymph % (Auto) [place] % (Auto) Eos % (Auto) Baso % (Auto) Neut # (Auto) Lymph # (Auto) [place] # (Auto) Eos # (Auto) Baso # (Auto) Total Counted Immature Gran % Nucleated RBC % Immature Gran # Segmented Neutrophils Band Neutrophils Lymphocytes Monocytes Nucleated RBCs # Platelet Estimate Immature Plt Fraction Hypochromasia Microcytosis Ovalocytes Morphology Comment ABG pH 7.224 L ABG pCO2 34.8 L ABG pO2 64.3 L ABG HCO3 14.1 L ABG Total CO2 15.1 L ABG O2 Saturation 92.9 L ABG Base Excess -12.6 L Sodium Potassium Chloride Carbon Dioxide Anion Gap BUN Creatinine GFR Calculation BUN/Creatinine Ratio Glucose POC Glucose 191 H Calculated Osmolality Calcium Magnesium B-Natriuretic Peptide Triglycerides Cholesterol LDL Cholesterol VLDL Cholesterol HDL Cholesterol Heart Disease Risk Ratio Urine Color Yellow Urine Appearance Cloudy Urine pH 5.0 Ur Specific [place] 1.012 Urine Protein 100 Urine Glucose (UA) 50 Urine Ketones Negative Urine Blood Moderate Urine Nitrate Negative Urine Bilirubin Negative Urine Urobilinogen < 2.0 H Urine Leukocytes Large H Urine RBC 32 Urine WBC 73 Ur Squamous Epith Cells Occasional Urine Mucus Occasional Ur Culture Indicated? Results to follow 10/24/16 10/24/16 10/25/16 22:09 23:06 03:21 WBC RBC Hgb Hct MCV MCH MCHC RDW Plt Count MPV Neut % (Auto) Lymph % (Auto) [place] % (Auto) Eos % (Auto) Baso % (Auto) Neut # (Auto) Lymph # (Auto) [place] # (Auto) Eos # (Auto) Baso # (Auto) Total Counted Immature Gran % Nucleated RBC % Immature Gran # Segmented Neutrophils Band Neutrophils Lymphocytes Monocytes Nucleated RBCs # Platelet Estimate Immature Plt Fraction Hypochromasia Microcytosis Ovalocytes Morphology Comment ABG pH ABG pCO2 ABG pO2 ABG HCO3 ABG Total CO2 ABG O2 Saturation ABG Base Excess Sodium Potassium Chloride Carbon Dioxide Anion Gap BUN Creatinine GFR Calculation BUN/Creatinine Ratio Glucose POC Glucose 199 H 196 H 189 H Calculated Osmolality Calcium Magnesium B-Natriuretic Peptide Triglycerides Cholesterol LDL Cholesterol VLDL Cholesterol HDL Cholesterol Heart Disease Risk Ratio Urine Color Urine Appearance Urine pH Ur Specific [place] Urine Protein Urine Glucose (UA) Urine Ketones Urine Blood Urine Nitrate Urine Bilirubin Urine Urobilinogen Urine Leukocytes Urine RBC Urine WBC Ur Squamous Epith Cells Urine Mucus Ur Culture Indicated? 10/25/16 10/25/16 10/25/16 03:49 03:49 03:49 WBC 6.4 RBC 3.01 L Hgb 9.7 L Hct 28.0 L MCV 93.0 MCH 32 MCHC 34.6 RDW 13.9 Plt Count 150 D MPV 10.6 Neut % (Auto) 87.6 H Lymph % (Auto) 4.4 L [place] % (Auto) 7.2 Eos % (Auto) 0.0 Baso % (Auto) 0.2 Neut # (Auto) 5.6 Lymph # (Auto) 0.3 L [place] # (Auto) 0.5 Eos # (Auto) 0.0 Baso # (Auto) 0.0 Total Counted 100 Immature Gran % 0.6 Nucleated RBC % 0.0 Immature Gran # 0.04 Segmented Neutrophils 91 H Band Neutrophils 2 Lymphocytes 4 L Monocytes 3 Nucleated RBCs # 0.00 Platelet Estimate Adequate Immature Plt Fraction 0.0 Hypochromasia 1+ Microcytosis 1+ Ovalocytes Slight Morphology Comment ABG pH ABG pCO2 ABG pO2 ABG HCO3 ABG Total CO2 ABG O2 Saturation ABG Base Excess Sodium 141 Potassium 3.7 Chloride 109 H Carbon Dioxide 18 L Anion Gap 17.7 H BUN 49 H D Creatinine 5.00 H GFR Calculation 12 BUN/Creatinine Ratio 9.00 Glucose 159 H POC Glucose Calculated Osmolality 296.3 Calcium 7.6 L Magnesium 1.8 B-Natriuretic Peptide Triglycerides 63 Cholesterol 82 LDL Cholesterol 31.0 VLDL Cholesterol 12.6 HDL Cholesterol 47 Heart Disease Risk Ratio 1.74 Urine Color Urine Appearance Urine pH Ur Specific [place] Urine Protein Urine Glucose (UA) Urine Ketones Urine Blood Urine Nitrate Urine Bilirubin Urine Urobilinogen Urine Leukocytes Urine RBC Urine WBC Ur Squamous Epith Cells Urine Mucus Ur Culture Indicated?
[2016-10-25] MEDS: CARVEDILOL 6.25 MG TABLET PO SCH ×2 (08:50→21:28)
[2016-10-25] MEDS: SODIUM BICARBONATE 650 MG TABLET PO SCH ×3 (08:50→21:26)
[2016-10-25] MEDS: ATORVASTATIN 20 MG TABLET PO SCH (08:50)
[2016-10-25] MEDS: PANTOPRAZOLE 40 MG VIAL IV SCH (08:51)
[2016-10-25] MEDS: ASCORBIC ACID 500 MG TABLET PO SCH ×2 (08:51→21:26)
[2016-10-25 09:20] LABS: ABG HCO3 13.8 MMOL/L (20-26); ABG Oxygen Saturation 97.2 % (95-100); ABG PCO2 31.2 MM HG (35-48); ABG PH 7.265 (7.35-7.45); ABG PO2 101.4 MM HG (80-95); ABG TCO2 14.8 MMOL/L (23-27)
[2016-10-25] MEDS: COLLAGENASE OINT 30 GM TUBE TOP SCH (10:00)
[2016-10-25] MEDS: BACITRACIN OINT 0.9 GM PACK TOP SCH (10:00)
--- NOTE | 2016-10-25 10:22 | General Surgery Progress Note ---
Assessment and Plan (1) Hemopneumothorax on left Status: Acute Assessment and plan: Continue chest tube. Output decreased somewhat. H&H is stable we will continue to monitor serial H&H as well as output. Oxygen as needed with pain management and incentive spirometer. Repeat CXR in am.. Current Visit: Yes (2) Ribs, multiple fractures Problem details: Rib fractures left T2 through T5 Status: Acute Assessment and plan: As above Current Visit: Yes Qualifiers: Encounter type: initial encounter Fracture type: closed Laterality: left Qualified Code(s): S22.42XA - Multiple fractures of ribs, left side, initial encounter for closed fracture (3) Acute renal failure Status: Acute Assessment and plan: We will dialyze patient per nephrology recommendations. Appreciate input. Patient will require temporary hemodialysis catheter placement. The indications for this were reviewed with the patient as well as the risks including infection, bleeding, injury to adjacent structures, septicemia which could be life-threatening, and malfunction of device. Patient expresses understanding of these risks and agrees to proceed. We will perform the procedure at bedside today. Current Visit: Yes (4) Atrial fibrillation Status: Acute Assessment and plan: Currently in sinus rhythm. Managed by cardiology - appreciate input. Current Visit: Yes (5) History of hypertension Status: Chronic Assessment and plan: Off pressors now. Blood pressure slightly elevated. Appreciate hospitalist input Current Visit: Yes (6) History of insulin dependent diabetes mellitus Status: Chronic Assessment and plan: Poorly controlled at home. Diabetic diet and sliding scale with reasonable control at this time. Appreciate hospitalist input. Current Visit: Yes (7) Hyperkalemia Status: Acute Assessment and plan: Resolved. Current Visit: Yes (8) Prophylactic measure Status: Acute Assessment and plan: DVT prophylaxis: SID hose in place. Hold pharmacologic prophylaxis considering hemothorax. GI prophylaxis: PPI daily Current Visit: Yes Subjective Patient reports: Present: no new complaints, other (Pain unchanged. Patient's renal function continues to worsen. Peripheral edema worsened. Afebrile) Exam - Constitutional Vitals: Period Temp Pulse Resp BP Sys/Branch Pulse Ox Last 24 Hr 98.6 F-99.5 F 67-96 12-89 81-180/39-111 85-98 General appearance: no acute distress - Head Head exam: Present: atraumatic - Neck Neck exam: Present: trachea midline - Respiratory Respiratory exam: Present: other (Right side clear; left with diminished breath sounds serosanguineous output from chest tube with 456 mL's documented in the last 24 hours) - Cardiovascular Cardiovascular exam: Present: RRR - GI/Abdominal GI/Abdominal exam: Present: soft, other (Bowel sounds present). Absent: distended, tenderness - Extremities Exam Extremities exam: Present: other (Anasarca noted) - Neurological Exam Neurological exam: Present: alert, oriented X3 Results - Labs CBC & BMP: 10/25/16 03:49 10/25/16 03:49 Lab Results: I have reviewed the past 24 hour labs Labs: ABG reviewed - Diagnostic Findings Procedure: Chest x-ray: image reviewed by me, report reviewed by me
[2016-10-25 10:47] LABS: Hepatitis A Ab IgM Quant 0.05 Index; Hepatitis A Ab IgM Result Negative (Negative); Hepatitis B Core IgM Quant 0.12 Index; Hepatitis B Core IgM Result Negative (Negative); Hepatitis B Surface Ag Quant 0.27 Index; Hepatitis B Surface Ag Result Negative (Negative); Hepatitis C Virus Ab Quant 0.02 Index; Hepatitis C Virus Ab Result Negative (Negative)
--- NOTE | 2016-10-25 11:49 | XRay Report ---
XR chest 1V portable Indication: Hemodialysis catheter placement Comparison: Chest x-ray October 25, 2016 at 3:27 AM Technique: Single frontal view of the chest. Findings: Interval placement of right-sided central venous catheter with tip projecting over the distal SVC. Continued cardiomegaly status post sternotomy/cardiac valve replacement. Left-sided chest tube again demonstrated. Patchy left-sided pulmonary opacification and right basilar atelectasis/consolidation with probable small bilateral pleural fluid appear grossly unchanged. There is continued elevation of left hemidiaphragm to mild degree. IMPRESSION: Interval placement of right-sided central venous catheter. Otherwise, no significant interval change. PROCEDURE INTERPRETED AT [facility] DEPARTMENT OF RADIOLOGY Final Report Signed by: Dr Renny Waller
--- NOTE | 2016-10-25 12:41 | Pulmonology Progress Note ---
Pulmonary - PN: Subj Interval history: This is a 71-year-old white male whom I saw in pulmonary consultation on 2016. My impressions were. #1: Acute left-sided hemopneumothorax status post trauma after being kicked by his [place]. This required chest tube placement which is being managed by Dr. Maxwell. #2: Hyperkalemia. On review the patient's home medications he was taking spironolactone and lisinopril. This is almost certainly the cause of this. He is already been given Kayexalate. We agree with this and will hold the spironolactone and lisinopril for the time being. 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 Since that time the patient's potassiums have come under control. He has developed renal failure. His creatinine is increased from 1.50-2.20. I appreciate Dr. Mika Wei's nephrology consultation. Today I have consulted pain medicine for possible nerve block. Patient has quite a bit of pain from his fractured ribs. ABGs on FiO2 28% show a pH of 7.219, PCO2 of 41.5, PO2 91.6 and a bicarb of 16.6. Patient's chest x-ray show left lower lung contusion with associated fluid. Patient has developed a small amount of fluid at the base of his right lung and his BNP has increased to 1148. I suspect that we are dealing with an element of congestive heart failure. I have ordered an echocardiogram. And I have consulted cardiology. Note that the patient's hemoglobin A1c is 11.0. His glucoses are now coming under pretty good control. H&H is 9.2/26.8. White count is dropped 6200 and platelets are 120,000. Repeat urinalysis. Check sputum for Gram stain culture and sensitivity. 10/25/2016. Last night I have problems with oxygenation but this seems to improve. Today the patient looks stronger. He has taken a better deep of breath. His chest x-ray shows loculated fluid on the left. There is slight elevation of the left hemidiaphragm with preservation of normal curvature. Patient has a right lower lung pleural effusion. I suspect he has mild congestive heart failure. Creatinine is 5.00 with a BUN of 49. Electrolytes are normal. Dr. Mika Wei and I have discussed the case. ABGs show pH is 7.265, PCO2 31.2, PO2 101.4. CBC is stable. Patient's had a low-grade temp. I will repeat his urinalysis which was previously negative. When I first interviewed the patient he told me he had been kicked by [employer] [place]. Later he changed his story to kicked by medial when talking to other doctors. Today I asked him for confirmation and he told me that he was actually kicked by a large donkey. Physical exam. Vital signs. See below. Most temps for the last 3 days have been in the 99's. Psychiatric. Oriented 3 Face. Symmetrical. No edema of the lips or tongue Neck. Symmetrical. No meningismus Lymphatics. No submandibular cervical supraclavicular or epitrochlear adenopathy Chest. Decreased inspiratory excursion. Breath sounds are clear Heart. No definite gallop. Extremities. No definite deep venous thrombophlebitis. The remainder the exam is negative. Plan: 10/21/2016 #1: Hold spironolactone and lisinopril #2: We will add Flector patch for pain control in addition to his already ordered medications #3: Dr. Maxwell is managing the patient's chest tube #4: Daily chest x-ray and labs #5: Inhalation therapy #6: See orders 10/24/2016 1. Pain medicine consultation for possible nerve block 2. Echocardiogram 3. Cardiology consultation 4. As per Dr. Wei. We have discussed the case and coordinated our care. Patient appears to have acute tubular necrosis and will probably require short- term dialysis. See Dr. Wei's note. 5. Follow chest x-ray 6. Urinalysis 7. Sputum for Gram stain culture and sensitive 10/25/2016. 1. See today's note, above. 2. Continue present regimen. 3. Not a [place]. Not amenable. A donkey did it Exam (Progress Note) - Constitutional Vitals: Period Temp Pulse Resp BP Sys/Branch Pulse Ox Last 24 Hr 98.6 F-99.8 F 67-96 13-89 81-180/39-111 85-100 Results - Labs CBC & BMP: 10/25/16 03:49 10/25/16 03:49
--- NOTE | 2016-10-25 12:44 | Operative Note ---
Date of procedure: 10/25/16 Pre-op diagnosis: Acute renal failure Post-op diagnosis: same Procedure: Procedure performed: Placement of right internal jugular non-tunneled hemodialysis catheter Procedure in detail: After informed consent was obtained the patient was laid supine and placed in Trendelenburg. His right neck and chest were prepped and draped in usual sterile fashion. After procedural pause ultrasound was brought over through a sterile sleeve covering ultrasound the right neck revealed a patent and compressible right internal jugular vein. Right internal jugular vein was then accessed using an 18-gauge Seldinger needle under ultrasound guidance on the first attempt. There was return of nonpulsatile dark red blood. Guidewire inserted without resistance. Guidewire was seen to be coursing through the visualized portion of the right internal jugular vein on ultrasound. Small incision made around the guidewire and the tract was dilated. A 16 cm non-cuffed hemodialysis catheter was then placed over the guidewire using Seldinger technique. The guidewire was removed. The catheter withdrew and flushed easily from all ports and was locked with saline. It was secured in place with 2-0 silk suture. Sterile dressings applied and the patient tolerated the procedure well. Anesthesia: local Surgeon / Physician: Darion Maxwell Estimated blood loss: other (Less than 10 cc) Specimens: none sent Condition: stable Disposition: no change Results - Labs CBC & BMP: 10/25/16 03:49 10/25/16 03:49 Discharge Plan - Discharge Medications No Action Spironolactone [Spironolactone] 25 mg PO DAILY Lisinopril [Lisinopril] 10 mg PO BID Insulin Aspart [Novolog] See Protocol SQ BID PRN PRN Reason: Glucose Management Glimepiride [Glimepiride] 2 mg PO BID Escitalopram [Lexapro] 20 mg PO BEDTIME Carvedilol [Carvedilol] 6.25 mg PO BID Atorvastatin [Lipitor] 20 mg PO DAILY Insulin Glargine [Lantus] 10 units SUBCUT BID Aspirin 81 mg PO DAILY - Follow Up or Referral - Forms/Instructions
[2016-10-25] MEDS: ONDANSETRON 4 MG/2 ML VIAL IV PRN (13:03)
--- NOTE | 2016-10-25 15:00 | Dialysis Note ---
Dialysis Note - Dialysis Note Mr. Morse is seen at the beginning of his hemodialysis. We plan to remove 1 or 2 L of fluid as tolerated and dialyze about 2-1/2 hours today. He is alert and in good spirits.
--- NOTE | 2016-10-25 17:30 | Pain Management Progress Note ---
Assessment and Plan (1) Ribs, multiple fractures Problem details: Rib fractures left T2 through T5 Status: Acute Assessment and plan: 10/25/2016. Overall the patient reports less chest wall pain today. He is using less of the RESEARCH AND EVALUATION MANAGER narcotics. He is more alert and oriented today. Will consider repeating intercostal nerve blocks as needed. N 10/24/2016. The patient sustained trauma left chest wall and kicked by horse. Fractured left T2 through T5. He is having trouble with deep breathing and coughing clearing secretions due to the pain. It is reasonable to consider intercostal nerve block the left at this point so that we can start cutting back on the opioid consumption and to help with pulmonary toilet and mobilization. Typically pain relief lasted approximately 24 hours with the injection and then when the pain returns often is not nearly as bad as it was prior to the procedure. It is reasonable to repeat the procedure as needed. y Current Visit: Yes Qualifiers: Encounter type: initial encounter Fracture type: closed Laterality: left Qualified Code(s): S22.42XA - Multiple fractures of ribs, left side, initial encounter for closed fracture Pain - Subjective Interval history: Less chest wall pain today Exam - Constitutional Vitals: Period Temp Pulse Resp BP Sys/Branch Pulse Ox Last 24 Hr 98.6 F-99.8 F 67-97 13-89 83-180/39-111 85-100 Results - Labs CBC & BMP: 10/25/16 03:49 10/25/16 03:49
[2016-10-25] MEDS: HYDROmorphone PCA 30 MG/30 ML SYRINGE IV SCH (18:33)
[2016-10-25 18:57] LABS: Bilirubin,Urine Negative (Negative); Blood, Urine NEGATIVE (Negative); Glucose,Urine (UA) Negative (Negative); Ketones,Urine 25 mg/dL (Negative); Mucus,Urine Occasional /LPF (Occasional); Nitrite,Urine Negative (Negative); Protein,Urine 30 MG/DL; RBC,Urine 3 /HPF (0-4); Squamous Epithelial Cell,Urine Occasional /HPF (0-10); Urine Color Yellow (Yellow); WBC,Urine 7 /HPF (0-6)
[2016-10-25 18:59] LABS: Apearance,Urine YELLOW (Clear); Urine Urobilinogen 0.2 EU/DL (0.2-1.0)
[2016-10-25] MEDS: ESCITALOPRAM 10 MG TABLET PO SCH (21:27)
[2016-10-26] MEDS: INSULIN LISPRO 100 UNIT/ML SUBCUT SCH ×6 (00:07→22:33)
[2016-10-26 05:17] LABS: Basophils % 0.1 % (0.0-0.8); Eosinophils # 0.1 10*3/uL (0.0-0.87); Eosinophils % 1.6 % (0.00-10.9); Hematocrit 26.8 VOL% (42.0-52.0); Hemoglobin 9.4 GM/DL (14.0-18.0); Immature Granulocytes % 0.6 %; Immature Granulocytes Absolute 0.04 #; Lymphocytes # 0.6 10*3/uL (1.4-4.0); Lymphocytes % 8.2 % (21.2-54.2); Mean Corpuscular HGB Conc 35.1 GM/DL (32-36); Mean Corpuscular Hemoglobin 32 PG (27-34); Mean Corpuscular Volume 90.8 FL (87-102); Mean Platelet Volume 10.4 FL (9.6-12.0); Monocytes # 0.7 10*3/uL (0.11-0.8); Monocytes % 11.1 % (1.7-12.7); Neutrophils # 5.2 10*3/uL (1.4-7.4); Neutrophils % 78.4 % (38.7-73.9); Platelet Count 153 T/CUMM (130-400); Red Blood Count 2.95 MC/CUMM (3.8-5.5); Red Cell Distribution Width 13.8 % (9.3-17.3); White Blood Count 6.7 T/CUMM (4-12)
[2016-10-26 05:53] LABS: Calcium 7.5 MG/DL (8.5-10.1); Osmolality,Calculated 296.1 MOS/KG (273-304); Potassium 3.5 MMOL/L (3.5-5.1)
[2016-10-26] MEDS: ALBUTEROL/IPRATROPIUM 3 ML NEB RESP TX SCH ×4 (07:49→19:02)
[2016-10-26] MEDS: HYDROmorphone PCA 30 MG/30 ML SYRINGE IV SCH (07:54)
--- NOTE | 2016-10-26 08:13 | Cardiology Progress Note ---
Assessment and Plan (1) New onset atrial fibrillation Status: Acute Assessment and plan: SEE PLAN OF CARE LISTED BELOW. Current Visit: Yes (2) Acute kidney injury Status: Acute Assessment and plan: SEE PLAN OF CARE LISTED BELOW. Current Visit: Yes (3) Hemopneumothorax on left Status: Acute Assessment and plan: SEE PLAN OF CARE LISTED BELOW. Current Visit: Yes (4) History of hypertension Status: Chronic Assessment and plan: SEE PLAN OF CARE LISTED BELOW. Current Visit: Yes (5) History of insulin dependent diabetes mellitus Status: Chronic Assessment and plan: SEE PLAN OF CARE LISTED BELOW. Current Visit: Yes (6) Coronary artery disease Status: Chronic Assessment and plan: SEE PLAN OF CARE LISTED BELOW. Current Visit: Yes Qualifiers: Coronary Disease-Associated Artery/Lesion type: [place] artery [place] vs. transplanted heart: [place] heart Associated angina: without angina Qualified Code(s): I25.10 - Atherosclerotic heart disease of [place] coronary artery without angina pectoris (7) Anemia Status: Acute Assessment and plan: SEE PLAN OF CARE LISTED BELOW. Current Visit: Yes (8) Dyslipidemia Status: Chronic Assessment and plan: SEE PLAN OF CARE LISTED BELOW. Current Visit: Yes (9) Hypomagnesemia Status: Acute Assessment and plan: SEE PLAN OF CARE LISTED BELOW. Current Visit: Yes (10) Pulmonary contusion Status: Acute Assessment and plan: SEE PLAN OF CARE LISTED BELOW. Current Visit: Yes (11) Ribs, multiple fractures Problem details: Rib fractures left T2 through T5 Status: Acute Assessment and plan: SEE PLAN OF CARE LISTED BELOW. Current Visit: Yes Qualifiers: Encounter type: initial encounter Fracture type: closed Laterality: left Qualified Code(s): S22.42XA - Multiple fractures of ribs, left side, initial encounter for closed fracture Cardiology - PN: Subj Interval history: DATA PROCESSING SPECIALIST: Dr. Mitchell SUMMARY Mr. Morse, 71-year-old male patient with known coronary artery disease, routinely followed by Dr. Mitchell. Patient's cardiac risk factors include: Known CAD (history of CABG), diabetes, dyslipidemia, hypertension and advanced age. No previous history of cardiomyopathy or atrial fibrillation. Patient had CABG [address] Wise. Patient presented to [facility] October 20, 2016 after being kicked by a donkey in his left side twice. He came to the emergency room was found to have a hemothorax chest tube was placed was admitted service of Dr. Grimes for surgery. Oct 21 the patient developed A. fib and was placed on Cardizem infusion. Patient has since converted back to normal sinus rhythm. Cardiology was consulted to further evaluate. OCTOBER 24, 2016 Patient was seen and examined in the ICU. He is currently in sinus tachycardia , heart rates below 105. Echocardiogram this admission revealed preserved LV systolic function, ejection fraction 55%. No regional wall motion abnormality. No pericardial effusion. Moderate TR. He is without complaints of chest pain , heaviness and tightness. He also denies shortness of breath. Cardizem drip has been weaned off. At this point, patient's blood pressure is marginal. No longer requiring vasopressors. We will continue with a low-dose beta-blockade. Can increase AV randi blocking agents as blood pressure will tolerate to prevent further atrial fibrillation. Vitamin C will be added. Because of his anemia, I would not anticoagulate at this time he does have a chads score of greater than 2 which puts him at high risk for stroke in the long-term. Will discuss with Dr. Serrano regarding initiation of aspirin. Further recommendations to follow. OCTOBER 25, 2016 Patient was seen and examined in the ICU. Remains in normal sinus rhythm. Heart rates in the 90s. Patient tells me that last night he became dyspneic while nurses were giving him a bath and changing his sheets. This morning, this has resolved. He appears comfortable and is in no apparent distress. Requiring oxygen via nasal cannula. Chest tube in place. Continues to drain serosanguineous fluid. Creatinine this morning continues to rise. 5.0 this morning. Oliguria. Nephrology is following. Anticipate dialysis in the next day or 2. This will most likely be temporary. Pain management is following. Nerve block was performed yesterday. Patient's pain appears to be well controlled currently. Patient continues to be anemic. However this has improved overnight. 9.7 and 28.0 this morning. Patient has received 2 units of packed red blood cells this hospitalization. We will continue to monitor trend and transfuse as needed. At this point, patient is doing well from a cardiac standpoint. We will continue current plan of care with beta-blockade and vitamin C. Continue to optimize his electrolytes and monitor telemetry for recurrent rhythm disturbances. Will continue to hold off on adding anticoagulation until his hemothorax/anemia improves. I will further discuss with Dr. Serrano and await his additional recommendations. October 26, 2016 Patient was seen and examined in the ICU. Patient has done well overnight. He underwent hemodialysis yesterday for the first time. He reports he tolerated this well. No complications. He tells me that his pain is under well control. Chest tube remains intact. Now draining serous drainage. Kidney function is much better this morning. Creatinine 3.1 with BUN of 36. Patient will undergo dialysis again today. Blood pressure has been suboptimally controlled. I have increased his beta-frances dose. We will continue to monitor this and adjust his medications as needed this hospitalization. Patient continues to be in normal sinus rhythm. No recurrent atrial fibrillation noted. At this point, patient is doing well from a cardiac standpoint we will continue with current plan of care and monitor for recurrent atrial fibrillation. Will continue to hold off on anticoagulation. This will need to be considered once his anemia and hemothorax improves. I will further discuss Dr. Serrano and await his additional recommendations. ASSESSMENT/PLAN: 1. NEW ONSET ATRIAL FIBRILLATION - Patient remains in normal sinus rhythm. Continue current plan of care with beta-blockade and vitamin C. We will continue to optimize his electrolytes and monitor telemetry for recurrent rhythm disturbances. Because of his anemia as well as hemothorax, I would not anticoagulate at this time. However, he does have a chads score of greater than 2 which puts him at high risk for stroke long-term. Will consider adding long-term anticoagulation once his anemia and hemothorax improves. I will further discuss with Dr. Serrano and await his additional recommendations. 2. LEFT HEMOPNEUMOTHORAX - Chest tube in place. Management per surgery. 3. PULMONARY CONTUSION - Continue current plan of care. 4. MULTIPLE RIB FRACTURES - Pain under well control with PROCESS ENGINEERING INTERN pump. Pain management following. 5. ACUTE KIDNEY INJURY - Creatinine is down trending downward after initiating hemodialysis yesterday. Patient will be dialyzed again today. 6. HISTORY OF CORONARY ARTERY DISEASE - No clear evidence of ischemia. Without anginal symptoms. Echo revealed preserved LV systolic function. No regional wall motion abnormality. Recommend reinitiation of aspirin when hemothorax improves. 7. DYSLIPIDEMIA - Continue lipid-lowering agent. Lipid panel reviewed. LDL at goal. 8. HYPERTENSION - Patient's blood pressure is suboptimally controlled. I have increased his beta blockade dose. We will continue to monitor and adjust as needed. 9. DIABETES - Clinically stable. Management per attending. 10. ANEMIA - Improved. Continue to cycle daily CBC. Transfuse as needed. 11 HYPOMAGNESEMIA - Resovled. Daily BMP. Exam (Progress Note) - Constitutional Vitals: Period Temp Pulse Resp BP Sys/Branch Pulse Ox Last 24 Hr 98.3 F-99.2 F 78-102 12-29 121-189/60-98 91-100 Exam: General: Appears well with no apparent distress. Pleasant and cooperative. Appears comfortable. HEENT: PERRL, normocephalic, atraumatic. Mucous membranes moist. No jaundice noted. Conjunctiva moist and clear, sclerae anicteric Neck: No JVD/HJR, no thyromegaly or lymphadenopathy noted. No carotid bruit appreciated Cardiac: Regular rate and rhythm. Lungs: Decreased lung sounds on left. Poor inspiratory effort due to left rib fractures. Chest wall: Left chest tube noted. Abdomen: Soft, bowel sounds normoactive. Nontender and nondistended. No abdominal bruit or thrill noted. No masses noted. Extremities: No clubbing, cyanosis noted. No edema noted. Upper extremity pulses 2+. Lower extremity pulses 2+. Capillary refill less than 3 seconds. Skin: No unusual lesions or rashes. No skin breakdown appreciated. Neuro: Awake, alert and oriented 3. Moves all extremities well without hemiparesis or paralysis. No essential tremor is appreciated. Result/EKG - Labs CBC & BMP: 10/26/16 04:28 10/26/16 04:28 Lab Results: I have reviewed the past 24 hour labs Labs: Laboratory Results - last 24 hr 10/25/16 10/25/16 10/25/16 03:49 08:10 09:18 WBC RBC Hgb Hct MCV MCH MCHC RDW Plt Count MPV Neut % (Auto) Lymph % (Auto) Smyth % (Auto) Eos % (Auto) Baso % (Auto) Neut # (Auto) Lymph # (Auto) Smyth # (Auto) Eos # (Auto) Baso # (Auto) Immature Gran % Nucleated RBC % Immature Gran # Nucleated RBCs # Immature Plt Fraction ABG pH 7.265 L ABG pCO2 31.2 L ABG pO2 101.4 H ABG HCO3 13.8 L ABG Total CO2 14.8 L ABG O2 Saturation 97.2 ABG Base Excess -12.0 L Sodium Potassium Chloride Carbon Dioxide Anion Gap BUN Creatinine GFR Calculation BUN/Creatinine Ratio Glucose POC Glucose 169 H Calculated Osmolality Calcium Magnesium Urine Color Urine Appearance Urine pH Ur Specific Cooper Urine Protein Urine Glucose (UA) Urine Ketones Urine Blood Urine Nitrate Urine Bilirubin Urine Urobilinogen Urine Leukocytes Urine RBC Urine WBC Ur Squamous Epith Cells Urine Mucus Ur Culture Indicated? Hepatitis A IgM Ab Negative Hep Bs Antigen Negative Hep B Core IgM Ab Negative Hepatitis C Antibody Negative 10/25/16 10/25/16 10/25/16 11:43 11:57 17:18 WBC RBC Hgb Hct MCV MCH MCHC RDW Plt Count MPV Neut % (Auto) Lymph % (Auto) Smyth % (Auto) Eos % (Auto) Baso % (Auto) Neut # (Auto) Lymph # (Auto) Smyth # (Auto) Eos # (Auto) Baso # (Auto) Immature Gran % Nucleated RBC % Immature Gran # Nucleated RBCs # Immature Plt Fraction ABG pH ABG pCO2 ABG pO2 ABG HCO3 ABG Total CO2 ABG O2 Saturation ABG Base Excess Sodium Potassium Chloride Carbon Dioxide Anion Gap BUN Creatinine GFR Calculation BUN/Creatinine Ratio Glucose POC Glucose 186 H 191 H 215 H Calculated Osmolality Calcium Magnesium Urine Color Urine Appearance Urine pH Ur Specific Cooper Urine Protein Urine Glucose (UA) Urine Ketones Urine Blood Urine Nitrate Urine Bilirubin Urine Urobilinogen Urine Leukocytes Urine RBC Urine WBC Ur Squamous Epith Cells Urine Mucus Ur Culture Indicated? Hepatitis A IgM Ab Hep Bs Antigen Hep B Core IgM Ab Hepatitis C Antibody 10/25/16 10/25/16 10/25/16 18:40 20:16 23:16 WBC RBC Hgb Hct MCV MCH MCHC RDW Plt Count MPV Neut % (Auto) Lymph % (Auto) Smyth % (Auto) Eos % (Auto) Baso % (Auto) Neut # (Auto) Lymph # (Auto) Smyth # (Auto) Eos # (Auto) Baso # (Auto) Immature Gran % Nucleated RBC % Immature Gran # Nucleated RBCs # Immature Plt Fraction ABG pH ABG pCO2 ABG pO2 ABG HCO3 ABG Total CO2 ABG O2 Saturation ABG Base Excess Sodium Potassium Chloride Carbon Dioxide Anion Gap BUN Creatinine GFR Calculation BUN/Creatinine Ratio Glucose POC Glucose 252 H 194 H Calculated Osmolality Calcium Magnesium Urine Color Yellow Urine Appearance Yellow Urine pH 5.0 Ur Specific Cooper 1.030 Urine Protein 30 Urine Glucose (UA) Negative Urine Ketones 25 Urine Blood Negative Urine Nitrate Negative Urine Bilirubin Negative Urine Urobilinogen 0.2 Urine Leukocytes Trace Urine RBC 3 Urine WBC 7 Ur Squamous Epith Cells Occasional Urine Mucus Occasional Ur Culture Indicated? Results to follow Hepatitis A IgM Ab Hep Bs Antigen Hep B Core IgM Ab Hepatitis C Antibody 10/26/16 10/26/16 10/26/16 04:28 04:28 05:49 WBC 6.7 RBC 2.95 L Hgb 9.4 L Hct 26.8 L MCV 90.8 MCH 32 MCHC 35.1 RDW 13.8 Plt Count 153 MPV 10.4 Neut % (Auto) 78.4 H Lymph % (Auto) 8.2 L Smyth % (Auto) 11.1 Eos % (Auto) 1.6 Baso % (Auto) 0.1 Neut # (Auto) 5.2 Lymph # (Auto) 0.6 L Smyth # (Auto) 0.7 Eos # (Auto) 0.1 Baso # (Auto) 0.0 Immature Gran % 0.6 Nucleated RBC % 0.0 Immature Gran # 0.04 Nucleated RBCs # 0.00 Immature Plt Fraction 0.0 ABG pH ABG pCO2 ABG pO2 ABG HCO3 ABG Total CO2 ABG O2 Saturation ABG Base Excess Sodium 142 Potassium 3.5 Chloride 107 Carbon Dioxide 22 Anion Gap 16.5 H BUN 36 H Creatinine 3.10 H GFR Calculation 22 BUN/Creatinine Ratio 11.00 Glucose 210 H POC Glucose 234 H Calculated Osmolality 296.1 Calcium 7.5 L Magnesium 2.0 Urine Color Urine Appearance Urine pH Ur Specific Cooper Urine Protein Urine Glucose (UA) Urine Ketones Urine Blood Urine Nitrate Urine Bilirubin Urine Urobilinogen Urine Leukocytes Urine RBC Urine WBC Ur Squamous Epith Cells Urine Mucus Ur Culture Indicated? Hepatitis A IgM Ab Hep Bs Antigen Hep B Core IgM Ab Hepatitis C Antibody 10/26/16 07:41 WBC RBC Hgb Hct MCV MCH MCHC RDW Plt Count MPV Neut % (Auto) Lymph % (Auto) Smyth % (Auto) Eos % (Auto) Baso % (Auto) Neut # (Auto) Lymph # (Auto) Smyth # (Auto) Eos # (Auto) Baso # (Auto) Immature Gran % Nucleated RBC % Immature Gran # Nucleated RBCs # Immature Plt Fraction ABG pH ABG pCO2 ABG pO2 ABG HCO3 ABG Total CO2 ABG O2 Saturation ABG Base Excess Sodium Potassium Chloride Carbon Dioxide Anion Gap BUN Creatinine GFR Calculation BUN/Creatinine Ratio Glucose POC Glucose 217 H Calculated Osmolality Calcium Magnesium Urine Color Urine Appearance Urine pH Ur Specific Cooper Urine Protein Urine Glucose (UA) Urine Ketones Urine Blood Urine Nitrate Urine Bilirubin Urine Urobilinogen Urine Leukocytes Urine RBC Urine WBC Ur Squamous Epith Cells Urine Mucus Ur Culture Indicated? Hepatitis A IgM Ab Hep Bs Antigen Hep B Core IgM Ab Hepatitis C Antibody
[2016-10-26] MEDS: SODIUM BICARBONATE 650 MG TABLET PO SCH ×3 (08:34→22:31)
[2016-10-26] MEDS: PANTOPRAZOLE 40 MG VIAL IV SCH (08:34)
[2016-10-26] MEDS: ASCORBIC ACID 500 MG TABLET PO SCH ×2 (08:34→22:32)
[2016-10-26] MEDS: ATORVASTATIN 20 MG TABLET PO SCH (08:35)
[2016-10-26] MEDS: CARVEDILOL 6.25 MG TABLET PO SCH ×3 (08:35→22:32)
[2016-10-26] MEDS: BACITRACIN OINT 0.9 GM PACK TOP SCH (08:35)
[2016-10-26] MEDS: COLLAGENASE OINT 30 GM TUBE TOP SCH (08:36)
--- NOTE | 2016-10-26 08:43 | Nephrology Progress Note ---
Nephrology - PN: Subj Interval history: Mr. Morse is seen in follow-up of his acute renal failure. He is improved following yesterday's hemodialysis. We removed about a liter and a half fluid and he seemed to breathe better last night. Will dialyze again today in order to remove more volume. He has a good bit of peripheral edema principally located in the forearms and the thighs. Urine output remains low. Plan is to continue with hemodialysis support until he recovers kidney function. Exam (PN)-Nephrology - Vital Signs Vital signs: Period Temp Pulse Resp BP Sys/Branch Pulse Ox Last 24 Hr 98.3 F-99.2 F 78-102 12-29 121-189/60-98 91-100 - Lab 10/26/16 04:28 10/26/16 04:28 Most recent lab results ABG pH 7.265 (7.35-7.45) L 10/25/16 09:18 ABG pCO2 31.2 MM HG (35-48) L 10/25/16 09:18 ABG pO2 101.4 MM HG (80-95) H 10/25/16 09:18 ABG HCO3 13.8 MMOL/L (20-26) L 10/25/16 09:18 ABG O2 Saturation 97.2 % (95-100) 10/25/16 09:18 Calcium 7.5 MG/DL (8.5-10.1) L 10/26/16 04:28 Magnesium 2.0 MG/DL (1.8-2.4) 10/26/16 04:28 Assessment and Plan (1) Acute kidney injury Status: Acute Current Visit: Yes (2) Ribs, multiple fractures Problem details: Rib fractures left T2 through T5 Status: Acute Current Visit: Yes Qualifiers: Encounter type: initial encounter Fracture type: closed Laterality: left Qualified Code(s): S22.42XA - Multiple fractures of ribs, left side, initial encounter for closed fracture (3) History of insulin dependent diabetes mellitus Status: Chronic Current Visit: Yes (4) Coronary artery disease Status: Chronic Current Visit: Yes Qualifiers: Coronary Disease-Associated Artery/Lesion type: [place] artery [place] vs. transplanted heart: [place] heart Associated angina: without angina Qualified Code(s): I25.10 - Atherosclerotic heart disease of [place] coronary artery without angina pectoris
--- NOTE | 2016-10-26 09:32 | XRay Report ---
Portable chest Date: 10/26/2016 Clinical history: Congestive heart failure Comparison: 10/25/2016 Technique: Portable AP sitting chest Findings: The heart remains enlarged with prior median sternotomy and cardiac valve replacement. Stable supportive devices including a left chest tube with smaller left hydropneumothorax. Multiple acute displaced rib fractures are noted. Minimally reduced interstitial edema with persistent atelectasis/infiltration at the right lung base and small right pleural effusion.. Impression: Minimally improved pulmonary edema and smaller right hydropneumothorax. Otherwise the chest appears fairly stable in the appearance. PROCEDURE INTERPRETED AT [facility] DEPARTMENT OF RADIOLOGY Final Report Signed by: Dr. Ansley Harding
--- NOTE | 2016-10-26 11:35 | General Surgery Progress Note ---
Assessment and Plan (1) Hemopneumothorax on left Status: Acute Assessment and plan: Continue chest tube. Output decreased somewhat. H&H and CXR are stable we will continue to monitor serial H&H as well as output. Oxygen as needed with pain management and incentive spirometer. Repeat CXR in am. Transfer to floor. Moderate yeast in sputum culture - defer to pulmonology for recommendations. Current Visit: Yes (2) Acute renal failure Status: Acute Assessment and plan: Creatinine improved. Increased urine output but still oliguric. Continue dialysis per nephrology - appreciate input. Avoid nephrotoxic agents. Current Visit: Yes (3) Nausea Status: Acute Assessment and plan: Will check abdominal xr - concern for developing ileus. No flatus and small BM yesterday. Mobilize patient. MOnitor. Current Visit: Yes (4) Ribs, multiple fractures Problem details: Rib fractures left T2 through T5 Status: Acute Assessment and plan: As above Current Visit: Yes Qualifiers: Encounter type: initial encounter Fracture type: closed Laterality: left Qualified Code(s): S22.42XA - Multiple fractures of ribs, left side, initial encounter for closed fracture (5) Atrial fibrillation Status: Acute Assessment and plan: Currently in sinus rhythm. Managed by cardiology - appreciate input. Current Visit: Yes (6) History of hypertension Status: Chronic Assessment and plan: Blood pressure slightly elevated. Appreciate hospitalist input Current Visit: Yes (7) History of insulin dependent diabetes mellitus Status: Chronic Assessment and plan: Poorly controlled at home. Diabetic diet and sliding scale with reasonable control at this time. Appreciate hospitalist input. Current Visit: Yes (8) Prophylactic measure Status: Acute Assessment and plan: DVT prophylaxis: SID hose in place. Hold pharmacologic prophylaxis considering hemothorax. MOiblize patient. GI prophylaxis: PPI daily Current Visit: Yes Subjective Patient reports: Present: no new complaints, feels better, still having pain ( Some nausea and vomiting this am. Pt reports he has not passed flatus. ) Exam - Constitutional Vitals: Period Temp Pulse Resp BP Sys/Branch Pulse Ox Last 24 Hr 98.3 F-99.2 F 73-102 12-28 121-189/60-98 95-100 General appearance: no acute distress - Head Head exam: Present: normal inspection - Eye Eye exam: Absent: scleral icterus - Respiratory Respiratory exam: Present: other (diminished breath sounds rihgt side; clear on left. Chest tube output decreased 350cc overnight) - Cardiovascular Cardiovascular exam: Present: RRR - GI/Abdominal GI/Abdominal exam: Present: distended (slighlty), soft, other (bowel sounds present). Absent: firm, guarding, tenderness - Extremities Exam Extremities exam: Present: other (peripheral edema of upper and lower extremities improved) - Neurological Exam Neurological exam: Present: alert, oriented X3 Speech: Present: normal - Skin Skin exam: Present: normal color Results - Labs CBC & BMP: 10/26/16 04:28 10/26/16 04:28 Labs: MRSA screen negative Urine culture: No growth at 1248 hrs. Sputum culture with moderate yeast - Impressions urine output increased but still oliguric - Diagnostic Findings Procedure: Chest x-ray: image reviewed by me, report reviewed by me (Stable)
--- NOTE | 2016-10-26 12:03 | Pulmonology Progress Note ---
Exam (Progress Note) - Constitutional Vitals: Period Temp Pulse Resp BP Sys/Branch Pulse Ox Last 24 Hr 98.3 F-99.2 F 73-102 12-27 121-189/60-98 95-100 Results - Labs CBC & BMP: 10/26/16 04:28 10/26/16 04:28
--- NOTE | 2016-10-26 12:18 | XRay Report ---
Exam: XR abdomen 1V Date: 10/26/2016 11:33 AM Comparison: 06/06/2008 Indication: Nausea and vomiting Technique:[Portable supine abdomen] Findings: Mild gaseous distention of the bowel with increased fecal material in the colon. Degenerative changes are noted with old healed pubic bone fractures. Prior median sternotomy and cardiac valve replacement. Left chest tube with displaced left rib fractures. Additional findings noted on chest x-ray same day. Impression: Mild gaseous distention of bowel which could be related ileus, increased fecal material, etc. Additional findings as above noted. PROCEDURE INTERPRETED AT [facility] DEPARTMENT OF RADIOLOGY Final Report Signed by: Dr. Ansley Harding
--- NOTE | 2016-10-26 13:11 | Pain Management Progress Note ---
Assessment and Plan (1) Ribs, multiple fractures Problem details: Rib fractures left T2 through T5 Status: Acute Assessment and plan: 10/26/2016. The patient shows slow improvement. Occasional use of [employer]ICER. He can cough and seems to be clearing secretions adequately. Consider repeat intercostal nerve block if this becomes a problem. n 10/25/2016. Overall the patient reports less chest wall pain today. He is using less of the [employer] OFFICER narcotics. He is more alert and oriented today. Will consider repeating intercostal nerve blocks as needed. N 10/24/2016. The patient sustained trauma left chest wall and kicked by horse. Fractured left T2 through T5. He is having trouble with deep breathing and coughing clearing secretions due to the pain. It is reasonable to consider intercostal nerve block the left at this point so that we can start cutting back on the opioid consumption and to help with pulmonary toilet and mobilization. Typically pain relief lasted approximately 24 hours with the injection and then when the pain returns often is not nearly as bad as it was prior to the procedure. It is reasonable to repeat the procedure as needed. y Current Visit: Yes Qualifiers: Encounter type: initial encounter Fracture type: closed Laterality: left Qualified Code(s): S22.42XA - Multiple fractures of ribs, left side, initial encounter for closed fracture Pain - Subjective Interval history: Moderate chest wall pain Exam - Constitutional Vitals: Period Temp Pulse Resp BP Sys/Branch Pulse Ox Last 24 Hr 98.3 F-99.2 F 73-102 12-27 121-189/60-98 95-100 Results - Labs CBC & BMP: 10/26/16 04:28 10/26/16 04:28
--- NOTE | 2016-10-26 14:09 | Dialysis Note ---
Dialysis Note - Dialysis Note Mr. Morse is seen on hemodialysis. We are removing more volume today in an effort to decrease his edema and remove any component of pulmonary edema and tendency to pleural effusion. He is tolerating dialysis well
--- NOTE | 2016-10-26 14:45 | Hospitalist Progress Note ---
Assessment and Plan (1) History of insulin dependent diabetes mellitus Status: Chronic Assessment and plan: restarted insulin Current Visit: Yes Hospitalist: Subjective Interval history: Patient doing well. Removed 1600 from dialysis yesterday. Patient relatively comfortable with chest tube in place. Blood sugars still elevated over 200 Exam - Constitutional Vitals: Period Temp Pulse Resp BP Sys/Branch Pulse Ox Last 24 Hr 98.3 F-99.2 F 73-102 12-22 121-189/60-98 95-100 Exam: Heart Rate-[RRR] Lungs-[diminished] GI-[+bs soft, NT] Ext-[no edema] Neuro [Motor 5/5], [alert and oriented times 3] psych [normal mood and affect] General [no acute distress] Results - Labs CBC & BMP: 10/26/16 04:28 10/26/16 04:28 Lab Results: I have reviewed the past 24 hour labs
[2016-10-26] MEDS ORDERED: HEPARIN 10,000 UNIT/10 ML VIAL IV SCH (15:30)
[2016-10-26] MEDS: INSULIN GLARGINE 100 UNIT/ML SUBCUT SCH ×2 (16:01→22:32)
--- NOTE | 2016-10-26 18:17 | Pulmonology Progress Note ---
Pulmonary - PN: Subj Interval history: This is a 71-year-old white male whom I saw in pulmonary consultation on 2016. My impressions were. #1: Acute left-sided hemopneumothorax status post trauma after being kicked by his [place]. This required chest tube placement which is being managed by Dr. Maxwell. #2: Hyperkalemia. On review the patient's home medications he was taking spironolactone and lisinopril. This is almost certainly the cause of this. He is already been given Kayexalate. We agree with this and will hold the spironolactone and lisinopril for the time being. 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 Since that time the patient's potassiums have come under control. He has developed renal failure. His creatinine is increased from 1.50-2.20. I appreciate Dr. Mika Wei's nephrology consultation. Today I have consulted pain medicine for possible nerve block. Patient has quite a bit of pain from his fractured ribs. ABGs on FiO2 28% show a pH of 7.219, PCO2 of 41.5, PO2 91.6 and a bicarb of 16.6. Patient's chest x-ray show left lower lung contusion with associated fluid. Patient has developed a small amount of fluid at the base of his right lung and his BNP has increased to 1148. I suspect that we are dealing with an element of congestive heart failure. I have ordered an echocardiogram. And I have consulted cardiology. Note that the patient's hemoglobin A1c is 11.0. His glucoses are now coming under pretty good control. H&H is 9.2/26.8. White count is dropped 6200 and platelets are 120,000. Repeat urinalysis. Check sputum for Gram stain culture and sensitivity. 10/25/2016. Last night I have problems with oxygenation but this seems to improve. Today the patient looks stronger. He has taken a better deep of breath. His chest x-ray shows loculated fluid on the left. There is slight elevation of the left hemidiaphragm with preservation of normal curvature. Patient has a right lower lung pleural effusion. I suspect he has mild congestive heart failure. Creatinine is 5.00 with a BUN of 49. Electrolytes are normal. Dr. Mika Wei and I have discussed the case. ABGs show pH is 7.265, PCO2 31.2, PO2 101.4. CBC is stable. Patient's had a low-grade temp. I will repeat his urinalysis which was previously negative. When I first interviewed the patient he told me he had been kicked by [employer]. Later he changed his story to kicked by medial when talking to other doctors. Today I asked him for confirmation and he told me that he was actually kicked by a large donkey. 10/26/2016. This patient was seen earlier this morning and subsequently moved to the floor. He has done well from a pulmonary standpoint. Is in much less distressed and is been being .Linear areas of atelectasis near the bases in both lungHis chest x-ray shows a small amount of fluid at the bases. Creatinine is down to 3.10 with a BUN of 36 electrolytes are normal there has been a slight drop in H&H to 9.4/26.8. White count is 6700 and platelets are 153,000. Microbiology is negative. Physical exam. Vital signs. See below. Most temps for the last 3 days have been in the 99's. Psychiatric. Oriented 3 Face. Symmetrical. No edema of the lips or tongue Neck. Symmetrical. No meningismus Lymphatics. No submandibular cervical supraclavicular or epitrochlear adenopathy Chest. Decreased inspiratory excursion. Breath sounds are clear Heart. No definite gallop. Extremities. No definite deep venous thrombophlebitis. The remainder the exam is negative. Plan: 10/21/2016 #1: Hold spironolactone and lisinopril #2: We will add Flector patch for pain control in addition to his already ordered medications #3: Dr. Maxwell is managing the patient's chest tube #4: Daily chest x-ray and labs #5: Inhalation therapy #6: See orders 10/24/2016 1. Pain medicine consultation for possible nerve block 2. Echocardiogram 3. Cardiology consultation 4. As per Dr. Wei. We have discussed the case and coordinated our care. Patient appears to have acute tubular necrosis and will probably require short- term dialysis. See Dr. Wei's note. 5. Follow chest x-ray 6. Urinalysis 7. Sputum for Gram stain culture and sensitive 10/25/2016. 1. See today's note, above. 2. Continue present regimen. 3. Not a [place]. Not amenable. A donkey did it 10/26/2016. 1. See today's note above. 2. Agree with plans. Exam (Progress Note) - Constitutional Vitals: Period Temp Pulse Resp BP Sys/Branch Pulse Ox Last 24 Hr 98.3 F-99.1 F 73-100 13-22 121-189/60-98 95-98 Results - Labs CBC & BMP: 10/26/16 04:28 10/26/16 04:28
[2016-10-26] MEDS: ESCITALOPRAM 10 MG TABLET PO SCH (22:31)
[2016-10-27] MEDS: INSULIN LISPRO 100 UNIT/ML SUBCUT SCH ×7 (00:52→23:51)
[2016-10-27 04:46] LABS: Basophils % 0.3 % (0.0-0.8); Eosinophils # 0.2 10*3/uL (0.0-0.87); Eosinophils % 3.5 % (0.00-10.9); Hematocrit 26.6 VOL% (42.0-52.0); Hemoglobin 9.4 GM/DL (14.0-18.0); Immature Granulocytes % 0.6 %; Immature Granulocytes Absolute 0.04 #; Lymphocytes # 0.6 10*3/uL (1.4-4.0); Lymphocytes % 9.5 % (21.2-54.2); Mean Corpuscular HGB Conc 35.3 GM/DL (32-36); Mean Corpuscular Hemoglobin 32 PG (27-34); Mean Corpuscular Volume 91.1 FL (87-102); Monocytes # 0.9 10*3/uL (0.11-0.8); Monocytes % 13.2 % (1.7-12.7); Neutrophils # 4.8 10*3/uL (1.4-7.4); Neutrophils % 72.9 % (38.7-73.9); Platelet Count 152 T/CUMM (130-400); Red Blood Count 2.92 MC/CUMM (3.8-5.5); Red Cell Distribution Width 13.8 % (9.3-17.3); White Blood Count 6.6 T/CUMM (4-12)
[2016-10-27 05:25] LABS: Calcium 7.6 MG/DL (8.5-10.1); Magnesium 2.1 MG/DL (1.8-2.4); Osmolality,Calculated 293.4 MOS/KG (273-304); Potassium 3.4 MMOL/L (3.5-5.1)
[2016-10-27] MEDS ORDERED: DEXTROSE 50% 25 GM/50 ML VIAL IV PRN (07:33)
[2016-10-27] MEDS ORDERED: GLUCAGON 1 MG VIAL IM PRN (07:33)
[2016-10-27] MEDS: ALBUTEROL/IPRATROPIUM 3 ML NEB RESP TX SCH ×4 (07:33→20:10)
[2016-10-27] MEDS: ATORVASTATIN 20 MG TABLET PO SCH (08:28)
[2016-10-27] MEDS: CARVEDILOL 6.25 MG TABLET PO SCH (08:28)
[2016-10-27] MEDS: SODIUM BICARBONATE 650 MG TABLET PO SCH ×3 (08:28→20:55)
[2016-10-27] MEDS: GLIMEPIRIDE 2 MG TABLET PO SCH ×2 (08:28→17:10)
[2016-10-27] MEDS: PANTOPRAZOLE 40 MG TABLET PO SCH (08:28)
[2016-10-27] MEDS: ASCORBIC ACID 500 MG TABLET PO SCH ×2 (08:28→20:55)
[2016-10-27] MEDS: INSULIN GLARGINE 100 UNIT/ML SUBCUT SCH ×2 (08:30→20:55)
--- NOTE | 2016-10-27 08:30 | XRay Report ---
Portable chest Date: 10/27/2016 Clinical history: Chest tube, CHF Comparison: 10/26/2016 Technique: Portable AP sitting chest Findings: The heart is minimally enlarged with prior median sternotomy and cardiac valve replacement. Stable supportive devices including a left chest tube. Persistent diffuse parenchymal findings especially in the lower lung zones. Smaller left hydropneumothorax with more stable white pleural effusion. Multiple displaced left rib fractures. Impression: Fairly stable atelectasis/infiltration/edema with minimally smaller left hydropneumothorax and more stable small right pleural effusion. Multiple displaced left rib fractures are noted with prior median sternotomy and cardiac valve replacement. PROCEDURE INTERPRETED AT [facility] DEPARTMENT OF RADIOLOGY Final Report Signed by: Dr. Ansley Harding
--- NOTE | 2016-10-27 08:50 | Nephrology Progress Note ---
Nephrology - PN: Subj Interval history: Mr. Morse is seen in follow-up of his acute renal failure. He is making urine but still has considerable edema particularly of his thighs and genitalia. Blood pressure stable. We will ultrafilter today to remove some of this edema. He will likely require dialysis again tomorrow. He is well dialyzed and that his electrolytes are controlled with potassium of 3.4. Ultrafiltration today will not change any of those parameters. Exam (PN)-Nephrology - Vital Signs Vital signs: Period Temp Pulse Resp BP Sys/Branch Pulse Ox Last 24 Hr 97.4 F-99.1 F 65-88 16-20 128-182/52-84 90-99 - Lab 10/27/16 03:47 10/27/16 03:47 Most recent lab results ABG pH 7.265 (7.35-7.45) L 10/25/16 09:18 ABG pCO2 31.2 MM HG (35-48) L 10/25/16 09:18 ABG pO2 101.4 MM HG (80-95) H 10/25/16 09:18 ABG HCO3 13.8 MMOL/L (20-26) L 10/25/16 09:18 ABG O2 Saturation 97.2 % (95-100) 10/25/16 09:18 Calcium 7.6 MG/DL (8.5-10.1) L 10/27/16 03:47 Magnesium 2.1 MG/DL (1.8-2.4) 10/27/16 03:47 Assessment and Plan (1) Acute kidney injury Status: Acute Current Visit: Yes (2) Ribs, multiple fractures Problem details: Rib fractures left T2 through T5 Status: Acute Current Visit: Yes Qualifiers: Encounter type: initial encounter Fracture type: closed Laterality: left Qualified Code(s): S22.42XA - Multiple fractures of ribs, left side, initial encounter for closed fracture (3) History of insulin dependent diabetes mellitus Status: Chronic Current Visit: Yes (4) Coronary artery disease Status: Chronic Current Visit: Yes Qualifiers: Coronary Disease-Associated Artery/Lesion type: [place] artery [place] vs. transplanted heart: [place] heart Associated angina: without angina Qualified Code(s): I25.10 - Atherosclerotic heart disease of [place] coronary artery without angina pectoris
--- NOTE | 2016-10-27 09:53 | General Surgery Progress Note ---
Assessment and Plan (1) Hemopneumothorax on left Status: Acute Assessment and plan: Continue chest tube. Output decreased 100cc last 24 hrs. H&H and CXR are stable We will continue to monitor serial H&H as well as output. Oxygen as needed with pain management and incentive spirometer. Repeat CXR in am. Moderate yeast in sputum culture -discussed with pulmonology team. We will start Diflucan after dialysis with consultation for renal dosing with the pharmacist.. Current Visit: Yes (2) Acute renal failure Status: Acute Assessment and plan: Creatinine continues to improved with still gains in urine output. Continue dialysis per nephrology - appreciate input. Avoid nephrotoxic agents. Current Visit: Yes (3) Nausea Status: Acute Assessment and plan: Resolved. Monitor. Patient with some constipation. Declines any medication at this time. Current Visit: Yes (4) Ribs, multiple fractures Problem details: Rib fractures left T2 through T5 Status: Acute Assessment and plan: As above Current Visit: Yes Qualifiers: Qualified Code(s): S22.42XA - Multiple fractures of ribs, left side, initial encounter for closed fracture (5) Atrial fibrillation Status: Acute Assessment and plan: Currently in sinus rhythm. Managed by cardiology - appreciate input. Current Visit: Yes (6) History of hypertension Status: Chronic Assessment and plan: Currently normotensive. Appreciate hospitalist input Current Visit: Yes (7) History of insulin dependent diabetes mellitus Status: Chronic Assessment and plan: Poorly controlled at home. Diabetic diet and sliding scale with bedside glucose checks increasing. Appreciate hospitalist input. Current Visit: Yes (8) Prophylactic measure Status: Acute Assessment and plan: DVT prophylaxis: SID hose in place. Hold pharmacologic prophylaxis considering hemothorax. Moiblize patient. Physical therapy has been consulted. GI prophylaxis: PPI daily Current Visit: Yes Subjective Patient reports: Present: feels better, still having pain, flatus, no bowel movement, afebrile (Patient reports continued to feeling slowly improved. Patient tolerated diet last night without any nausea or vomiting.). Absent: nausea, vomiting Exam - Constitutional Vitals: Period Temp Pulse Resp BP Sys/Branch Pulse Ox Last 24 Hr 97.4 F-99.1 F 65-88 16-20 128-182/52-84 90-99 General appearance: no acute distress - Head Head exam: Present: normocephalic, atraumatic - Eye Eye exam: Absent: scleral icterus - Neck Neck exam: Present: trachea midline - Respiratory Respiratory exam: Present: other (Diminished breath sounds bilaterally; no wheezes, rales or rhonchi noted) - Cardiovascular Cardiovascular exam: Present: RRR - GI/Abdominal GI/Abdominal exam: Present: normal bowel sounds, soft. Absent: distended, firm , tenderness - Extremities Exam Extremities exam: Present: other (Peripheral edema bilateral upper and lower extremities virtually resolved) - Neurological Exam Neurological exam: Present: alert, oriented X3 Speech: Present: normal Results - Labs CBC & BMP: 10/27/16 03:47 10/27/16 03:47 - Diagnostic Findings Procedure: Abdominal Flat/Erect: image reviewed by me, report reviewed by me ( Nonspecific gas pattern; evidence of constipation noted), Chest x-ray: image reviewed by me, report reviewed by me (Stable)
[2016-10-27] MEDS: HYDROmorphone PCA 30 MG/30 ML SYRINGE IV SCH (11:24)
--- NOTE | 2016-10-27 11:41 | Hospitalist Progress Note ---
Assessment and Plan - Time spent with patient Time spent with patient: Greater than 30 minutes (1) Pulmonary contusion Status: Acute Assessment and plan: General surgery and pulmonary following. Current Visit: Yes Qualifiers: Encounter type: initial encounter Laterality: left Qualified Code(s): S27.321A - Contusion of lung, unilateral, initial encounter (2) Ribs, multiple fractures Problem details: Rib fractures left T2 through T5 Status: Acute Current Visit: Yes Qualifiers: Encounter type: initial encounter Fracture type: closed Laterality: left Qualified Code(s): S22.42XA - Multiple fractures of ribs, left side, initial encounter for closed fracture (3) Hemopneumothorax on left Status: Acute Assessment and plan: Being managed with chest tube per general surgery. Current Visit: Yes (4) Coronary artery disease Status: Chronic Current Visit: Yes Qualifiers: Coronary Disease-Associated Artery/Lesion type: [place] artery [place] vs. transplanted heart: [place] heart Associated angina: without angina Qualified Code(s): I25.10 - Atherosclerotic heart disease of [place] coronary artery without angina pectoris (5) Dyslipidemia Status: Chronic Current Visit: Yes (6) Diabetes mellitus Status: Chronic Assessment and plan: Resume home medications. Start sliding scale insulin. Continue Lantus twice daily. He reports an improved appetite. Monitor blood sugars with Accu-Cheks q. before meals and at bedtime. 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 Patient with good urine output. Current Visit: Yes Hospitalist: Subjective Interval history: Patient seen and examined. No acute events overnight. Case discussed with nursing staff. Labs reviewed. at the bedside. No complaints voiced. Exam - Constitutional Vitals: Period Temp Pulse Resp BP Sys/Branch Pulse Ox Last 24 Hr 97.4 F-99.1 F 65-88 16-20 128-182/52-84 90-99 Exam: Constitutional System: No distress. No tremulousness. Head: Normocephalic, atraumatic. Ears, Nose and Throat System: No pain or tenderness. No epistaxis or discharge Eyes System: Pupils equal, round, and reactive. Extraocular muscles intact. Neck: Supple, without adenopathy, No jugular venous distention. No thyromegaly, neck mass, or prior surgery apparent. Respiratory System: Chest rales bilateral bases to auscultation. Chest tube noted left chest. Cardiovascular System: Heart with regular rate and rhythm. No murmur. GI System: Abdomen soft, nontender. Normo active bowel sounds present. Bonilla catheter in place with yellow clear urine. Scrotal and penile edema noted. Musculoskeletal System: limbs with no pedal edema. Full distal pulses. Normal capillary refill. Neurological System: No discernable sensory deficit. No aphasia Psychiatric System: Conversation is rational Results - Labs CBC & BMP: 10/27/16 03:47 10/27/16 03:47 Lab Results: I have reviewed the past 24 hour labs
--- NOTE | 2016-10-27 11:58 | Pulmonology Progress Note ---
Pulmonary - PN: Subj Interval history: [facility]avarria[facility] acting as scribe for Dr. Yannick Narvaez This is a 71-year-old white male who we saw in pulmonary consultation on 2016. At that time, our impressions were: #1: Acute left-sided hemopneumothorax status post trauma after reportedly being kicked by his [place]. This required chest tube placement which is being managed by Dr. Maxwell. #2: Hyperkalemia. On review the patient's home medications he was taking spironolactone and lisinopril. This is almost certainly the cause of this. He is already been given Kayexalate. We agree with this and will hold the spironolactone and lisinopril for the time being. 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 Since that time the patient's potassiums have come under control. He has developed renal failure. His creatinine is increased from 1.50-2.20. I appreciate Dr. Mika Wei's nephrology consultation. Today I have consulted pain medicine for possible nerve block. Patient has quite a bit of pain from his fractured ribs. ABGs on FiO2 28% show a pH of 7.219, PCO2 of 41.5, PO2 91.6 and a bicarb of 16.6. Patient's chest x-ray show left lower lung contusion with associated fluid. Patient has developed a small amount of fluid at the base of his right lung and his BNP has increased to 1148. I suspect that we are dealing with an element of congestive heart failure. I have ordered an echocardiogram. And I have consulted cardiology. Note that the patient's hemoglobin A1c is 11.0. His glucoses are now coming under pretty good control. H&H is 9.2/26.8. White count is dropped 6200 and platelets are 120,000. Repeat urinalysis. Check sputum for Gram stain culture and sensitivity. 10/25/2016. Last night I have problems with oxygenation but this seems to improve. Today the patient looks stronger. He has taken a better deep of breath. His chest x-ray shows loculated fluid on the left. There is slight elevation of the left hemidiaphragm with preservation of normal curvature. Patient has a right lower lung pleural effusion. I suspect he has mild congestive heart failure. Creatinine is 5.00 with a BUN of 49. Electrolytes are normal. Dr. Mika Wei and I have discussed the case. ABGs show pH is 7.265, PCO2 31.2, PO2 101.4. CBC is stable. Patient's had a low-grade temp. I will repeat his urinalysis which was previously negative. When I first interviewed the patient he told me he had been kicked by [place]. Later he changed his story to kicked by a mule when talking to other doctors. Today I asked him for confirmation and he told me that he was actually kicked by a large donkey. 10/26/2016. This patient was seen earlier this morning and subsequently moved to the floor. He has done well from a pulmonary standpoint. Is in much less distressed and is been being .Linear areas of atelectasis near the bases in both lung. His chest x-ray shows a small amount of fluid at the bases. Creatinine is down to 3.10 with a BUN of 36 electrolytes are normal there has been a slight drop in H&H to 9.4/26.8. White count is 6700 and platelets are 153,000. Microbiology is negative. 10/27/2016. The patient was seen today along with a female family member. He states that his pain is under fairly good control. He certainly looks fairly comfortable presently. Chest x-ray today shows a slight right pleural effusion , but is overall stable. Chest tube remains in place and is being managed by Dr. Maxwell. Sputum is growing a yeast. He has been started on Diflucan. Dr. Wei continues to dialyze this patient secondary to acute renal failure. Patient is tolerating this well. Medications have been reviewed. We made no changes today. Labs have been reviewed. White count is 6600 with 72.9% segs; H&H 9.4/26.6; platelet count 152,000; creatinine 2.00, BUN 28, sodium 140, potassium 3.4, magnesium 2.1; BNP 953 Exam (Progress Note) - Constitutional Vitals: Period Temp Pulse Resp BP Sys/Branch Pulse Ox Last 24 Hr 97.4 F-99.1 F 65-88 16-20 128-182/52-84 90-99 Exam: Chest with decreased respiratory excursion but overall breath sounds are clear Heart no definite gallop Abdomen nondistended with positive bowel sounds Extremities with nothing to suggest acute deep venous thrombophlebitis Psychiatric oriented 3 Neurologic long-term motor function is intact Plan: Diflucan for yeast in the sputum. Chest tube as per Dr. Maxwell. Dialysis as per Dr. Wei. Continue present treatment. See orders. Results - Labs CBC & BMP: 10/27/16 03:47 10/27/16 03:47
--- NOTE | 2016-10-27 13:48 | Pain Management Progress Note ---
Assessment and Plan (1) Ribs, multiple fractures Problem details: Rib fractures left T2 through T5 Status: Acute Assessment and plan: 10/27/2016. Patient has shown steady improvement. This time stable. Please reconsult me if further intervention needed for chest wall pain. 10/26/2016. The patient shows slow improvement. Occasional use of CLEAN RICE GRADER AND REEL TENDER. He can cough and seems to be clearing secretions adequately. Consider repeat intercostal nerve block if this becomes a problem. n 10/25/2016. Overall the patient reports less chest wall pain today. He is using less of the CLEAN RICE GRADER AND REEL TENDER narcotics. He is more alert and oriented today. Will consider repeating intercostal nerve blocks as needed. N 10/24/2016. The patient sustained trauma left chest wall and kicked by horse. Fractured left T2 through T5. He is having trouble with deep breathing and coughing clearing secretions due to the pain. It is reasonable to consider intercostal nerve block the left at this point so that we can start cutting back on the opioid consumption and to help with pulmonary toilet and mobilization. Typically pain relief lasted approximately 24 hours with the injection and then when the pain returns often is not nearly as bad as it was prior to the procedure. It is reasonable to repeat the procedure as needed. y Current Visit: Yes Qualifiers: Encounter type: initial encounter Fracture type: closed Laterality: left Qualified Code(s): S22.42XA - Multiple fractures of ribs, left side, initial encounter for closed fracture Pain - Subjective Interval history: Chest wall pain improving Exam - Constitutional Vitals: Period Temp Pulse Resp BP Sys/Branch Pulse Ox Last 24 Hr 97.4 F-98.5 F 65-88 16-20 128-182/52-84 90-99 Results - Labs CBC & BMP: 10/27/16 03:47 10/27/16 03:47
--- NOTE | 2016-10-27 15:16 | Dialysis Note ---
Dialysis Note - Dialysis Note Mr. Morse is seen at the beginning of his hemodialysis. He is doing well we plan to ultrafilter him today for about 3 kg. Will do hemodialysis again tomorrow. He has a good bit of peripheral edema that were trying to get rid of.
[2016-10-27] MEDS: COLLAGENASE OINT 30 GM TUBE TOP SCH (15:49)
[2016-10-27] MEDS: BACITRACIN OINT 0.9 GM PACK TOP SCH (15:49)
[2016-10-27] MEDS: FLUCONAZOLE INJ 200 MG in PREMIX 1 EACH IV SCH (18:31)
[2016-10-27] MEDS: CARVEDILOL 12.5 MG TABLET PO SCH (20:55)
[2016-10-27] MEDS: ESCITALOPRAM 10 MG TABLET PO SCH (20:55)
--- NOTE | 2016-10-27 21:16 | Cardiology Progress Note ---
Fei Parisi April RN, am scribing for, and in the presence of, Vito Hansen MD 21:16. Assessment and Plan (1) Acute kidney injury Status: Acute Current Visit: Yes (2) Anemia Status: Acute Current Visit: Yes (3) Hemopneumothorax on left Status: Acute Current Visit: Yes (4) Hypomagnesemia Status: Acute Current Visit: Yes (5) New onset atrial fibrillation Status: Acute Current Visit: Yes (6) Pulmonary contusion Status: Acute Current Visit: Yes Qualifiers: Encounter type: initial encounter Laterality: left Qualified Code(s): S27.321A - Contusion of lung, unilateral, initial encounter (7) Ribs, multiple fractures Problem details: Rib fractures left T2 through T5 Status: Acute Current Visit: Yes Qualifiers: Encounter type: initial encounter Fracture type: closed Laterality: left Qualified Code(s): S22.42XA - Multiple fractures of ribs, left side, initial encounter for closed fracture (8) Coronary artery disease Status: Chronic Current Visit: Yes Qualifiers: Coronary Disease-Associated Artery/Lesion type: [place] artery [place] vs. transplanted heart: [place] heart Associated angina: without angina Qualified Code(s): I25.10 - Atherosclerotic heart disease of [place] coronary artery without angina pectoris (9) Dyslipidemia Status: Chronic Current Visit: Yes (10) History of hypertension Status: Chronic Current Visit: Yes (11) History of insulin dependent diabetes mellitus Status: Chronic Current Visit: Yes Cardiology - PN: Subj Interval history: ASSISTANT PRODUCE MANAGER: Dr. Mitchell SUMMARY:Mr. Morse, 71-year-old male patient with known coronary artery disease , routinely followed by Dr. Mitchell. Patient's cardiac risk factors include: Known CAD (history of CABG), diabetes, dyslipidemia, hypertension and advanced age. No previous history of cardiomyopathy or atrial fibrillation. Patient had CABG [address] Wise. Patient presented to [facility] October 20, 2016 after being kicked by a donkey in his left side twice. He came to the emergency room was found to have a hemothorax. Chest tube was placed. Was admitted service of Dr. Grimes for surgery. Oct 21 the patient developed A. fib and was placed on Cardizem infusion. Patient has since converted back to normal sinus rhythm. Cardiology was consulted to further evaluate. Echocardiogram this admission revealed preserved LV systolic function, ejection fraction 55%. No regional wall motion abnormality. No pericardial effusion. Moderate TR. Because of his anemia, anticoagulation has not been started. He does have a chads score of greater than 2 which puts him at high risk for stroke in the long-term. He started hemodialysis October 25. October 27, 2016: Mr. Morse is seen resting in bed. He complains of generalized soreness, but no specific pain. Left chest tube remains intact. Chest x-ray this morning showed minimally smaller left pneumothorax and more stable small right pleural effusion. His beta-frances dose has been increased and his blood pressures have been better throughout the night. His heart sounds regular to auscultation and her rates have been in the 80s. He denies any palpitations. Lab data today: WBC 6.6 hemoglobin 9.4 hematocrit 26.6 Sodium 140 potassium 3.4 chloride 104 CO2 26 BUN 28 creatinine 2.0 Glucose 279 magnesium 2.1 BNP 953 Cardiology addendum Patient seen and examined and chart reviewed. Status post multiple rib fractures and left hemopneumothorax after being kicked by a mule. Patient developed acute renal failure and is requiring dialysis Paroxysmal atrial fibrillation converted chemically with IV Cardizem Blood pressure 130/80 Echo Doppler October 20, 2016 ejection fraction 55% with moderate dilated left atrium, mitral annular calcification, aortic valve sclerosis, normal RV function , moderate TR PA pressure 45 and no effusion Longtime diabetes Chronic hypertension Status post CABG Plan Dialysis tomorrow Analgesics as needed Exam (Progress Note) - Constitutional Vitals: Period Temp Pulse Resp BP Sys/Branch Pulse Ox Last 24 Hr 97.4 F-99.1 F 65-88 16-20 128-182/52-84 90-99 Exam: General: Appears well with no apparent distress. Pleasant and cooperative. Appears comfortable. HEENT: PERRL, normocephalic, atraumatic. Mucous membranes moist. No jaundice noted. Conjunctiva moist and clear, sclerae anicteric Neck: No JVD/HJR, no thyromegaly or lymphadenopathy noted. No carotid bruit appreciated Cardiac: Regular rate and rhythm. Lungs: Decreased lung sounds on left. Poor inspiratory effort due to left rib fractures. Chest wall: Left chest tube noted. Abdomen: Soft, bowel sounds normoactive. Nontender and nondistended. No abdominal bruit or thrill noted. No masses noted. Extremities: No clubbing, cyanosis noted. No edema noted. Upper extremity pulses 2+. Lower extremity pulses 2+. Capillary refill less than 3 seconds. Skin: No unusual lesions or rashes. No skin breakdown appreciated. Neuro: Awake, alert and oriented 3. Moves all extremities well without hemiparesis or paralysis. No essential tremor is appreciated. Result/EKG - Labs CBC & BMP: 10/27/16 03:47 10/27/16 03:47 Lab Results: I have reviewed the past 24 hour labs Labs: Laboratory Results - last 24 hr 10/26/16 10/26/16 10/27/16 12:05 20:23 00:32 WBC RBC Hgb Hct MCV MCH MCHC RDW Plt Count MPV Neut % (Auto) Lymph % (Auto) [place] % (Auto) Eos % (Auto) Baso % (Auto) Neut # (Auto) Lymph # (Auto) [place] # (Auto) Eos # (Auto) Baso # (Auto) Immature Gran % Nucleated RBC % Immature Gran # Nucleated RBCs # Immature Plt Fraction Sodium Potassium Chloride Carbon Dioxide Anion Gap BUN Creatinine GFR Calculation BUN/Creatinine Ratio Glucose POC Glucose 236 H 361 H 365 H Calculated Osmolality Calcium Magnesium B-Natriuretic Peptide 10/27/16 10/27/16 10/27/16 03:47 03:47 03:47 WBC 6.6 RBC 2.92 L Hgb 9.4 L Hct 26.6 L MCV 91.1 MCH 32 MCHC 35.3 RDW 13.8 Plt Count 152 MPV 10.0 Neut % (Auto) 72.9 Lymph % (Auto) 9.5 L [place] % (Auto) 13.2 H Eos % (Auto) 3.5 Baso % (Auto) 0.3 Neut # (Auto) 4.8 Lymph # (Auto) 0.6 L [place] # (Auto) 0.9 H Eos # (Auto) 0.2 Baso # (Auto) 0.0 Immature Gran % 0.6 Nucleated RBC % 0.0 Immature Gran # 0.04 Nucleated RBCs # 0.00 Immature Plt Fraction 0.0 Sodium 140 Potassium 3.4 L Chloride 104 Carbon Dioxide 26 Anion Gap 13.4 BUN 28 H Creatinine 2.00 H GFR Calculation 37 BUN/Creatinine Ratio 14.00 Glucose 267 H POC Glucose Calculated Osmolality 293.4 Calcium 7.6 L Magnesium 2.1 B-Natriuretic Peptide 953 H 10/27/16 10/27/16 04:42 06:43 WBC RBC Hgb Hct MCV MCH MCHC RDW Plt Count MPV Neut % (Auto) Lymph % (Auto) [place] % (Auto) Eos % (Auto) Baso % (Auto) Neut # (Auto) Lymph # (Auto) [place] # (Auto) Eos # (Auto) Baso # (Auto) Immature Gran % Nucleated RBC % Immature Gran # Nucleated RBCs # Immature Plt Fraction Sodium Potassium Chloride Carbon Dioxide Anion Gap BUN Creatinine GFR Calculation BUN/Creatinine Ratio Glucose POC Glucose 315 H 279 H Calculated Osmolality Calcium Magnesium B-Natriuretic Peptide - Diagnostic Findings Procedure: Chest x-ray: report reviewed by Jade Thakur Thomas, MD, personally performed the services described in this documentation, ascribed by Amanda Enamorado RN in my presence, and it is both accurate and complete .
[2016-10-28 05:43] LABS: Basophils % 0.3 % (0.0-0.8); Eosinophils # 0.3 10*3/uL (0.0-0.87); Eosinophils % 3.6 % (0.00-10.9); Hematocrit 28.6 VOL% (42.0-52.0); Hemoglobin 9.9 GM/DL (14.0-18.0); Immature Granulocytes % 0.6 %; Immature Granulocytes Absolute 0.05 #; Lymphocytes # 0.7 10*3/uL (1.4-4.0); Lymphocytes % 8.4 % (21.2-54.2); Mean Corpuscular HGB Conc 34.6 GM/DL (32-36); Mean Corpuscular Hemoglobin 32 PG (27-34); Mean Platelet Volume 10.2 FL (9.6-12.0); Monocytes # 0.9 10*3/uL (0.11-0.8); Monocytes % 11.5 % (1.7-12.7); Neutrophils # 5.9 10*3/uL (1.4-7.4); Neutrophils % 75.6 % (38.7-73.9); Platelet Count 140 T/CUMM (130-400); Red Blood Count 3.11 MC/CUMM (3.8-5.5); Red Cell Distribution Width 13.8 % (9.3-17.3); White Blood Count 7.8 T/CUMM (4-12)
[2016-10-28 06:10] LABS: Calcium 8.2 MG/DL (8.5-10.1); Magnesium 2.1 MG/DL (1.8-2.4); Osmolality,Calculated 300.1 MOS/KG (273-304); Potassium 3.8 MMOL/L (3.5-5.1)
[2016-10-28] MEDS: ALBUTEROL/IPRATROPIUM 3 ML NEB RESP TX SCH ×4 (07:14→18:58)
[2016-10-28] MEDS: CARVEDILOL 12.5 MG TABLET PO SCH ×2 (08:42→21:45)
[2016-10-28] MEDS: INSULIN LISPRO 100 UNIT/ML SUBCUT SCH ×4 (08:42→21:43)
[2016-10-28] MEDS: INSULIN GLARGINE 100 UNIT/ML SUBCUT SCH ×2 (08:42→21:43)
--- NOTE | 2016-10-28 09:17 | Nephrology Progress Note ---
Nephrology - PN: Subj Interval history: Mr. Chau is seen in follow-up of his acute renal failure. He ultrafiltered only yesterday and we remove 3 kg of volume. Since yesterday he has dropped his creatinine which means that his kidneys have dropped his creatinine rather than dialysis since yesterday session was only ultrafiltration. This is encouraging. He has continued significant edema around his thighs and scrotum. He is not short of breath but chest x-ray today looks a bit wet particularly on the right side. In view of those things we will ultrafilter again today to remove fluid as tolerated. We are being careful to avoid hypotension but I think since we have a dialysis catheter and can help him by accelerating the rate of edema resolution to we will do that. Creatinine today is 1.6 BUNs 31 and potassium is 3.8. Decisions about dialysis over the weekend versus fluid removal can be made on a daily basis but it does appear that his ability to handle waste products has returned and we will use the dialysis catheter to help remove some of this excess volume. The Bonilla catheter can come out once some of the edema has resolved Exam (PN)-Nephrology - Vital Signs Vital signs: Period Temp Pulse Resp BP Sys/Branch Pulse Ox Last 24 Hr 97.9 F-98.5 F 71-77 16-18 125-162/66-82 93-99 - Lab 10/28/16 05:24 10/28/16 05:24 Most recent lab results ABG pH 7.265 (7.35-7.45) L 10/25/16 09:18 ABG pCO2 31.2 MM HG (35-48) L 10/25/16 09:18 ABG pO2 101.4 MM HG (80-95) H 10/25/16 09:18 ABG HCO3 13.8 MMOL/L (20-26) L 10/25/16 09:18 ABG O2 Saturation 97.2 % (95-100) 10/25/16 09:18 Calcium 8.2 MG/DL (8.5-10.1) L 10/28/16 05:24 Magnesium 2.1 MG/DL (1.8-2.4) 10/28/16 05:24 Assessment and Plan (1) Acute kidney injury Status: Acute Current Visit: Yes (2) Ribs, multiple fractures Problem details: Rib fractures left T2 through T5 Status: Acute Current Visit: Yes Qualifiers: Encounter type: initial encounter Fracture type: closed Laterality: left Qualified Code(s): S22.42XA - Multiple fractures of ribs, left side, initial encounter for closed fracture (3) History of insulin dependent diabetes mellitus Status: Chronic Current Visit: Yes (4) Coronary artery disease Status: Chronic Current Visit: Yes Qualifiers: Coronary Disease-Associated Artery/Lesion type: [place] artery [place] vs. transplanted heart: [place] heart Associated angina: without angina Qualified Code(s): I25.10 - Atherosclerotic heart disease of [place] coronary artery without angina pectoris
--- NOTE | 2016-10-28 09:21 | XRay Report ---
History: Hemopneumothorax Date: 10/28/2016 Study: Chest x-ray AP portable Comparison exam: 10/27/2016 The right IJ central venous line is in stable satisfactory position. There is stable cardiomegaly. The mediastinal contour is unchanged in this patient status post prior median sternotomy and cardiac valve replacement. The pulmonary vasculature is upper normal. There is patchy and hazy atelectasis/infiltrate in the lung bases, slightly increased on the left. There is mild bilateral pleural effusion, at the minimum, unchanged. The chest tube in the left hemithorax has been removed. There is no pneumothorax. Multiple rib fractures are noted on the left as before. The exam is otherwise unchanged. Impression: No evidence of a pneumothorax following left chest tube removal. Continued bibasilar atelectasis/infiltrate and at least mild bilateral pleural effusion. The left basilar atelectasis/infiltrate is slightly increased PROCEDURE INTERPRETED AT [facility] DEPARTMENT OF RADIOLOGY Final Report Signed by: Dr. Mary Carrasquillo
--- NOTE | 2016-10-28 09:23 | General Surgery Progress Note ---
Assessment and Plan (1) Hemopneumothorax on left Status: Acute Assessment and plan: Chest tube has been removed. Chest x-ray appears stable with final read pending. H&H is stable. Patient is asymptomatic and oxygenating well. Continue to follow. Appreciate pulmonology input. Discontinue TRAUMA MANAGER pump. Moderate yeast in sputum culture -patient continues on Diflucan. Current Visit: Yes (2) Acute renal failure Status: Acute Assessment and plan: Creatinine continues to improved with still gains in urine output. Continue dialysis per nephrology - appreciate input. Avoid nephrotoxic agents. Baseline CKD suspected by patient report but baseline creatinine not known. Current Visit: Yes (3) Ribs, multiple fractures Problem details: Rib fractures left T2 through T5 Status: Acute Assessment and plan: As above Current Visit: Yes Qualifiers: Encounter type: initial encounter Fracture type: closed Laterality: left Qualified Code(s): S22.42XA - Multiple fractures of ribs, left side, initial encounter for closed fracture (4) History of hypertension Status: Chronic Assessment and plan: Managed per hospitalist team Current Visit: Yes (5) History of insulin dependent diabetes mellitus Status: Chronic Assessment and plan: Poorly controlled at home. Diabetic diet and sliding scale with bedside glucose checks increasing. Appreciate hospitalist input. Current Visit: Yes (6) Prophylactic measure Status: Acute Assessment and plan: DVT prophylaxis: SID hose in place. Hold pharmacologic prophylaxis considering hemothorax. Moiblize patient. Physical therapy has been consulted. GI prophylaxis: PPI daily Current Visit: Yes Subjective Patient reports: Present: feels better, pain is less, flatus, afebrile. Absent : nausea, vomiting (Patient's overall feeling improved. He continues to be more active. He is tolerating a diabetic diet without difficulty. ), shortness of breath Exam - Constitutional Vitals: Period Temp Pulse Resp BP Sys/Branch Pulse Ox Last 24 Hr 97.9 F-98.5 F 71-77 16-18 125-162/66-82 90-99 General appearance: no acute distress - Head Head exam: Present: normocephalic - Eye Eye exam: Absent: scleral icterus - Respiratory Respiratory exam: Present: other (Patient carrying well bilaterally; no adventitious breath sounds appreciated. Serosanguineous drainage noted from left chest wall) - Cardiovascular Cardiovascular exam: Present: RRR - GI/Abdominal GI/Abdominal exam: Present: normal bowel sounds, soft. Absent: distended, tenderness - Extremities Exam Extremities exam: Absent: calf tenderness, edema - Neurological Exam Neurological exam: Present: alert, oriented X3 Speech: Present: normal - Skin Skin exam: Present: normal color, warm, other (Bonilla catheter in place with clear urine. Scrotal and penile edema noted.) Results - Labs CBC & BMP: 10/28/16 05:24 10/28/16 05:24 Labs: Urine output increased to 1325 ML in 24 hours - Diagnostic Findings Procedure: Chest x-ray: image reviewed by me (Stable; radiology reading pending)
--- NOTE | 2016-10-28 09:52 | Dialysis Note ---
Dialysis Note - Dialysis Note Mr. Morse is seen on hemodialysis. We are ultrafiltering alone again today and removing 3 kg of volume. He will be assessed tomorrow regarding the need for further dialysis. But it appears he is recovering his kidney function. Will be careful today to avoid hypotension with ultrafiltration.
[2016-10-28] MEDS: HYDROmorphone PCA 30 MG/30 ML SYRINGE IV SCH (11:57)
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
[2016-10-28] MEDS: SODIUM BICARBONATE 650 MG TABLET PO SCH ×3 (13:16→21:45)
[2016-10-28] MEDS: GLIMEPIRIDE 2 MG TABLET PO SCH ×2 (13:47→17:22)
[2016-10-28] MEDS: ASCORBIC ACID 500 MG TABLET PO SCH ×2 (13:47→21:45)
[2016-10-28] MEDS: PANTOPRAZOLE 40 MG TABLET PO SCH (13:47)
[2016-10-28] MEDS: ATORVASTATIN 20 MG TABLET PO SCH (13:47)
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
--- NOTE | 2016-10-28 15:56 | Hospitalist Progress Note ---
Assessment and Plan (1) Diabetes mellitus Status: Chronic Assessment and plan: Resume home medications. Start sliding scale insulin. Increase Lantus to 20 units subcu twice daily. He reports an improved appetite. Monitor blood sugars with Accu-Cheks q. before meals and at bedtime. Current Visit: Yes Qualifiers: Diabetes mellitus type: type 2 Diabetes mellitus tank terminal gauger insulin use: with residential use (2) Pulmonary contusion Status: Acute Assessment and plan: General surgery and pulmonary following. Current Visit: Yes Qualifiers: Encounter type: initial encounter Laterality: left Qualified Code(s): S27.321A - Contusion of lung, unilateral, initial encounter (3) Ribs, multiple fractures Problem details: Rib fractures left T2 through T5 Status: Acute Current Visit: Yes Qualifiers: Encounter type: initial encounter Fracture type: closed Laterality: left Qualified Code(s): S22.42XA - Multiple fractures of ribs, left side, initial encounter for closed fracture (4) Hemopneumothorax on left Status: Acute Assessment and plan: Being managed with chest tube per general surgery. Current Visit: Yes (5) Coronary artery disease Status: Chronic Current Visit: Yes Qualifiers: Coronary Disease-Associated Artery/Lesion type: [place] artery [place] vs. transplanted heart: [place] heart Associated angina: without angina Qualified Code(s): I25.10 - Atherosclerotic heart disease of [place] coronary artery without angina pectoris (6) Dyslipidemia Status: Chronic Current Visit: Yes (7) Acute renal failure Status: Acute Assessment and plan: Improving with dialysis. Patient with good urine output. Current Visit: Yes Hospitalist: Subjective Interval history: Patient seen and examined. No acute events overnight. Case discussed with nursing staff. Labs reviewed. Blood sugars remain high. Lantus has been increased. This was discussed with the patient and his family member at the bedside. Exam - Constitutional Vitals: Period Temp Pulse Resp BP Sys/Branch Pulse Ox Last 24 Hr 97.9 F-98.5 F 71-77 16-18 130-162/66-82 90-99 Exam: Constitutional System: No distress. No tremulousness. Head: Normocephalic, atraumatic. Ears, Nose and Throat System: No pain or tenderness. No epistaxis or discharge Eyes System: Pupils equal, round, and reactive. Extraocular muscles intact. Neck: Supple, without adenopathy, No jugular venous distention. No thyromegaly, neck mass, or prior surgery apparent. Respiratory System: Chest rales bilateral bases to auscultation. Cardiovascular System: Heart with regular rate and rhythm. No murmur. GI System: Abdomen soft, nontender. Normo active bowel sounds present. Bonilla catheter in place with yellow clear urine. Scrotal and penile edema noted. Musculoskeletal System: limbs with no pedal edema. Full distal pulses. Normal capillary refill. Neurological System: No discernable sensory deficit. No aphasia Psychiatric System: Conversation is rational Results - Labs CBC & BMP: 10/28/16 05:24 10/28/16 05:24 Lab Results: I have reviewed the past 24 hour labs
[2016-10-28] MEDS ORDERED: INSULIN REGULAR 100 UNIT/ML IV ONE (20:16)
[2016-10-28] MEDS: FLUCONAZOLE INJ 200 MG in PREMIX 1 EACH IV SCH (21:43)
[2016-10-28] MEDS: BACITRACIN OINT 0.9 GM PACK TOP SCH (21:44)
[2016-10-28] MEDS: COLLAGENASE OINT 30 GM TUBE TOP SCH (21:44)
[2016-10-28] MEDS: ESCITALOPRAM 10 MG TABLET PO SCH (21:45)
[2016-10-28] MEDS: HYDROmorphone 2 MG/1 ML VIAL IV PRN (22:47)
[2016-10-29] MEDS: INSULIN LISPRO 100 UNIT/ML SUBCUT SCH ×5 (01:33→21:27)
[2016-10-29 04:36] LABS: Basophils % 0.2 % (0.0-0.8); Eosinophils # 0.3 10*3/uL (0.0-0.87); Eosinophils % 3.7 % (0.00-10.9); Hematocrit 27.7 VOL% (42.0-52.0); Hemoglobin 9.5 GM/DL (14.0-18.0); Immature Granulocytes % 0.7 %; Immature Granulocytes Absolute 0.06 #; Lymphocytes # 0.9 10*3/uL (1.4-4.0); Lymphocytes % 10.5 % (21.2-54.2); Mean Corpuscular HGB Conc 34.3 GM/DL (32-36); Mean Corpuscular Hemoglobin 32 PG (27-34); Mean Platelet Volume 10.8 FL (9.6-12.0); Monocytes # 0.9 10*3/uL (0.11-0.8); Monocytes % 10.6 % (1.7-12.7); Neutrophils # 6.2 10*3/uL (1.4-7.4); Neutrophils % 74.3 % (38.7-73.9); Platelet Count 141 T/CUMM (130-400); Red Blood Count 3.01 MC/CUMM (3.8-5.5); Red Cell Distribution Width 13.4 % (9.3-17.3); White Blood Count 8.3 T/CUMM (4-12)
[2016-10-29 05:14] LABS: Calcium 8.3 MG/DL (8.5-10.1); Osmolality,Calculated 293.1 MOS/KG (273-304); Potassium 3.5 MMOL/L (3.5-5.1)
[2016-10-29] MEDS: ONDANSETRON 4 MG/2 ML VIAL IV PRN (05:34)
[2016-10-29] MEDS: ALBUTEROL/IPRATROPIUM 3 ML NEB RESP TX SCH ×4 (07:35→23:10)
--- NOTE | 2016-10-29 07:56 | Hospitalist Progress Note ---
Assessment and Plan (1) Hyperkalemia Status: Acute Assessment and plan: Hyperkalemia is resolved. Renal function is stable and improving. Blood glucose is stable and the patient should continue present antidiabetic regimen. Current Visit: Yes Hospitalist: Subjective Interval history: We are consulted to manage diabetes for Mr. Morse. The patient has sustained hemopneumothorax and is being treated by Dr. Grimes for the trauma. During the recovery from trauma the patient had acute kidney injury. Kidney function is now stable and improving. Creatinine today is 1.4. Exam - Constitutional Vitals: Period Temp Pulse Resp BP Sys/Branch Pulse Ox Last 24 Hr 98.0 F-99.0 F 71-82 16-20 134-201/72-105 92-100 General appearance: mild distress - Respiratory Respiratory exam: Present: chest wall tenderness - Cardiovascular Cardiovascular exam: Present: regular rate and rhythm - GI/Abdominal GI/Abdominal exam: Present: normal bowel sounds Results - Labs CBC & BMP: 10/29/16 03:15 10/29/16 03:15 Lab Results: I have reviewed the past 24 hour labs
[2016-10-29] MEDS: INSULIN GLARGINE 100 UNIT/ML SUBCUT SCH ×2 (08:37→21:28)
[2016-10-29] MEDS: PANTOPRAZOLE 40 MG TABLET PO SCH (08:38)
[2016-10-29] MEDS: COLLAGENASE OINT 30 GM TUBE TOP SCH (08:38)
[2016-10-29] MEDS: BACITRACIN OINT 0.9 GM PACK TOP SCH (08:38)
[2016-10-29] MEDS: CARVEDILOL 12.5 MG TABLET PO SCH ×2 (08:38→21:29)
[2016-10-29] MEDS: ATORVASTATIN 20 MG TABLET PO SCH (08:38)
[2016-10-29] MEDS: GLIMEPIRIDE 2 MG TABLET PO SCH ×2 (08:38→17:46)
[2016-10-29] MEDS: SODIUM BICARBONATE 650 MG TABLET PO SCH ×3 (08:38→21:28)
[2016-10-29] MEDS: ASCORBIC ACID 500 MG TABLET PO SCH ×2 (08:38→21:28)
--- NOTE | 2016-10-29 10:12 | XRay Report ---
Portable chest October 29, 2016 Indication: Rib fractures Comparison images from previous day at 0549 hours Findings: Sternotomy wires and midline without evidence of prior valve replacement. Tubes and lines are unchanged and unremarkable. Multiple displaced left-sided rib fractures are unchanged with persistent atelectasis and left pleural effusion. Improved aeration within the right lung base with resolving right pleural fluid. Impression: 1. Improved aeration within the right lung base with no interval improvement on left since interval study PROCEDURE INTERPRETED AT [facility] DEPARTMENT OF RADIOLOGY Final Report Signed by: Venu Perez
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
--- NOTE | 2016-10-29 12:12 | Nephrology Progress Note ---
Nephrology - PN: Subj Interval history: No shortness of breath today. No GI symptoms Exam (PN)-Nephrology - Vital Signs Vital signs: Period Temp Pulse Resp BP Sys/Branch Pulse Ox Last 24 Hr 98.0 F-99.0 F 71-86 16-20 134-201/72-105 92-100 Exam: Gen.: Alert and oriented x3. ENT: Pupils equal round reactive to light. EOMs intact. Mucous membranes moist. Neck: Supple. No JVD or bruit. Cardiovascular: Regular rate and rhythm. No murmur rub or gallop Lungs: Clear Abdomen: Soft. Nontender. Positive bowel sounds. No organomegaly Extremities: Trace edema - Lab 10/29/16 03:15 10/29/16 03:15 Most recent lab results ABG pH 7.265 (7.35-7.45) L 10/25/16 09:18 ABG pCO2 31.2 MM HG (35-48) L 10/25/16 09:18 ABG pO2 101.4 MM HG (80-95) H 10/25/16 09:18 ABG HCO3 13.8 MMOL/L (20-26) L 10/25/16 09:18 ABG O2 Saturation 97.2 % (95-100) 10/25/16 09:18 Calcium 8.3 MG/DL (8.5-10.1) L 10/29/16 03:15 Magnesium 2.1 MG/DL (1.8-2.4) 10/28/16 05:24 Assessment and Plan (1) Acute kidney injury Status: Acute Assessment and plan: 71-year-old man with: * Acute renal failure. Resolved. Urine output has improved. Creatinine 1.4 today. No indication for ultrafiltration * Diabetes mellitus * CAD * Multiple rib fractures * Pulmonary contusion Current Visit: Yes (2) Hemopneumothorax on left Status: Acute Current Visit: Yes (3) Pulmonary contusion Status: Acute Current Visit: Yes Qualifiers: Encounter type: initial encounter Laterality: left Qualified Code(s): S27.321A - Contusion of lung, unilateral, initial encounter (4) Ribs, multiple fractures Problem details: Rib fractures left T2 through T5 Status: Acute Current Visit: Yes Qualifiers: Encounter type: initial encounter Fracture type: closed Laterality: left Qualified Code(s): S22.42XA - Multiple fractures of ribs, left side, initial encounter for closed fracture (5) Coronary artery disease Status: Chronic Current Visit: Yes Qualifiers: Coronary Disease-Associated Artery/Lesion type: [place] artery [place] vs. 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
--- NOTE | 2016-10-29 13:08 | General Surgery Progress Note ---
Assessment and Plan (1) Hemopneumothorax on left Status: Acute Assessment and plan: Status post chest tube for hemopneumothorax. Plan: Renal failure appears to have resolved. He is overall doing well but not ambulating. Will consult physical therapy. Leave his Bonilla until his scrotal and penile edema has improved. Labs okay. Will continue to change the dressing his left chest tube site. Expect this to slowly close as the output decreases hopefully. Current Visit: Yes Subjective Patient reports: Present: no new complaints Narrative: Patient has no complaints. His kidney functions improving. He has had some drainage from the chest tube site. It is serous. This is expected. He has quite a bit of scrotal edema. He is not been ambulating. Exam - Constitutional Vitals: Period Temp Pulse Resp BP Sys/Branch Pulse Ox Last 24 Hr 98.0 F-99.0 F 71-86 16-20 134-201/70-105 92-100 General appearance: no acute distress - Head Head exam: Present: normocephalic - Neck Neck exam: Present: normal inspection - Respiratory Respiratory exam: Present: clear to auscultation bilaterally - Cardiovascular Cardiovascular exam: Present: RRR - GI/Abdominal GI/Abdominal exam: Present: soft Results - Labs CBC & BMP: 10/29/16 03:15 10/29/16 03:15 Lab Results: I have reviewed the past 24 hour labs
--- NOTE | 2016-10-29 16:09 | Pulmonology Progress Note ---
Pulmonary - PN: Subj Interval history: This is a 71-year-old white male whom I saw in pulmonary consultation on 2016. My impressions were. #1: Acute left-sided hemopneumothorax status post trauma after being kicked by his Benyle. This required chest tube placement which is being managed by Dr. Maxwell. #2: Hyperkalemia. On review the patient's home medications he was taking spironolactone and lisinopril. This is almost certainly the cause of this. He is already been given Kayexalate. We agree with this and will hold the spironolactone and lisinopril for the time being. 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 Since that time the patient's potassiums have come under control. He has developed renal failure. His creatinine is increased from 1.50-2.20. I appreciate Dr. Mika eWi's nephrology consultation. Today I have consulted pain medicine for possible nerve block. Patient has quite a bit of pain from his fractured ribs. ABGs on FiO2 28% show a pH of 7.219, PCO2 of 41.5, PO2 91.6 and a bicarb of 16.6. Patient's chest x-ray show left lower lung contusion with associated fluid. Patient has developed a small amount of fluid at the base of his right lung and his BNP has increased to 1148. I suspect that we are dealing with an element of congestive heart failure. I have ordered an echocardiogram. And I have consulted cardiology. Note that the patient's hemoglobin A1c is 11.0. His glucoses are now coming under pretty good control. H&H is 9.2/26.8. White count is dropped 6200 and platelets are 120,000. Repeat urinalysis. Check sputum for Gram stain culture and sensitivity. 10/25/2016. Last night I have problems with oxygenation but this seems to improve. Today the patient looks stronger. He has taken a better deep of breath. His chest x-ray shows loculated fluid on the left. There is slight elevation of the left hemidiaphragm with preservation of normal curvature. Patient has a right lower lung pleural effusion. I suspect he has mild congestive heart failure. Creatinine is 5.00 with a BUN of 49. Electrolytes are normal. Dr. Mika Wei and I have discussed the case. ABGs show pH is 7.265, PCO2 31.2, PO2 101.4. CBC is stable. Patient's had a low-grade temp. I will repeat his urinalysis which was previously negative. When I first interviewed the patient he told me he had been kicked by Eulogio. Later he changed his story to kicked by medial when talking to other doctors. Today I asked him for confirmation and he told me that he was actually kicked by a large donkey. 10/26/2016. This patient was seen earlier this morning and subsequently moved to the floor. He has done well from a pulmonary standpoint. Is in much less distressed and is been being .Linear areas of atelectasis near the bases in both lungHis chest x-ray shows a small amount of fluid at the bases. Creatinine is down to 3.10 with a BUN of 36 electrolytes are normal there has been a slight drop in H&H to 9.4/26.8. White count is 6700 and platelets are 153,000. Microbiology is negative. 10/29/2016.Patient was seen today along with his nurse and 2 female family members. He is breathing better and doing better. He said having dialysis yesterday helped him. Today's chest x-ray shows a normal heart. He still has some fluid and/or loculated blood on the left side where he had multiple fractured ribs. His right chest is clear and there is no pleural effusions. Electrolytes are normal. Creatinine is dropped 1.40. H&H is 9.5/27.7 white count is 8300. Platelets are 141,000. Overall this patient is improved. Physical exam. Vital signs. See below. Most temps for the last 3 days have been in the 99's. Psychiatric. Oriented 3 Face. Symmetrical. No edema of the lips or tongue Neck. Symmetrical. No meningismus Lymphatics. No submandibular cervical supraclavicular or epitrochlear adenopathy Chest. Decreased inspiratory excursion. Breath sounds are clear Heart. No definite gallop. Extremities. No definite deep venous thrombophlebitis. The remainder the exam is negative. Plan: 10/21/2016 #1: Hold spironolactone and lisinopril #2: We will add Flector patch for pain control in addition to his already ordered medications #3: Dr. Maxwell is managing the patient's chest tube #4: Daily chest x-ray and labs #5: Inhalation therapy #6: See orders 10/24/2016 1. Pain medicine consultation for possible nerve block 2. Echocardiogram 3. Cardiology consultation 4. As per Dr. Wei. We have discussed the case and coordinated our care. Patient appears to have acute tubular necrosis and will probably require short- term dialysis. See Dr. Wei's note. 5. Follow chest x-ray 6. Urinalysis 7. Sputum for Gram stain culture and sensitive 10/25/2016. 1. See today's note, above. 2. Continue present regimen. 3. Not a [place]. Not amenable. A donkey did it 10/26/2016. 1. See today's note above. 2. Agree with plans. 10/29/2016. 1. See my note above 2. Dialyzing of fluid is helped this patient a good bit 3. Have made no changes to patient's dementia Exam (Progress Note) - Constitutional Vitals: Period Temp Pulse Resp BP Sys/Branch Pulse Ox Last 24 Hr 98.0 F-98.7 F 72-86 16-20 138-201/70-105 94-100 Results - Labs CBC & BMP: 10/29/16 03:15 10/29/16 03:15
[2016-10-29] MEDS: FLUCONAZOLE INJ 200 MG in PREMIX 1 EACH IV SCH (21:27)
[2016-10-29] MEDS: ESCITALOPRAM 10 MG TABLET PO SCH (21:29)
[2016-10-29] MEDS: HYDROmorphone 2 MG/1 ML VIAL IV PRN (21:50)
[2016-10-30] MEDS: ONDANSETRON 4 MG/2 ML VIAL IV PRN (02:58)
[2016-10-30] MEDS: HYDROmorphone 2 MG/1 ML VIAL IV PRN ×3 (03:30→21:28)
[2016-10-30 03:59] LABS: Calcium 8.1 MG/DL (8.5-10.1); Magnesium 1.9 MG/DL (1.8-2.4); Osmolality,Calculated 289.4 MOS/KG (273-304); Potassium 4.1 MMOL/L (3.5-5.1)
[2016-10-30] MEDS: ALBUTEROL/IPRATROPIUM 3 ML NEB RESP TX SCH ×4 (07:14→19:30)
[2016-10-30] MEDS: INSULIN GLARGINE 100 UNIT/ML SUBCUT SCH ×2 (08:57→21:30)
[2016-10-30] MEDS: BACITRACIN OINT 0.9 GM PACK TOP SCH (08:58)
[2016-10-30] MEDS: PANTOPRAZOLE 40 MG TABLET PO SCH (08:58)
[2016-10-30] MEDS: CARVEDILOL 12.5 MG TABLET PO SCH ×2 (08:58→21:24)
[2016-10-30] MEDS: SODIUM BICARBONATE 650 MG TABLET PO SCH ×3 (08:58→21:23)
[2016-10-30] MEDS: GLIMEPIRIDE 2 MG TABLET PO SCH ×2 (08:58→16:58)
[2016-10-30] MEDS: ASCORBIC ACID 500 MG TABLET PO SCH ×2 (08:58→21:23)
[2016-10-30] MEDS: INSULIN LISPRO 100 UNIT/ML SUBCUT SCH ×4 (08:58→21:30)
[2016-10-30] MEDS: ATORVASTATIN 20 MG TABLET PO SCH (08:58)
[2016-10-30] MEDS: COLLAGENASE OINT 30 GM TUBE TOP SCH (08:59)
--- NOTE | 2016-10-30 10:04 | Hospitalist Progress Note ---
Assessment and Plan (1) general debility Status: Acute Assessment and plan: 1)encourage work with PT. Consult case management for discharge planning. He is willing to go to TMR or swing bed if he needs to. 2)DM- continue SSI and amaryl. increase lantus to 25U BID. 3)HTN- controlled 4)KARY- resolved. still on bicarb orally. MIKE anguiano. 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 He continues to have pain at the site of his rib fractures. He has not been out of bed yet but PT has been ordered. He may need swing bed or TMR prior to return home. Exam - Constitutional Vitals: Period Temp Pulse Resp BP Sys/Branch Pulse Ox Last 24 Hr 97.8 F-99.2 F 70-86 15-20 136-174/68-89 95-100 General appearance: normal weight, no acute distress - Eye Eye exam: Present: EOMI. Absent: scleral icterus - Respiratory Respiratory exam: Present: clear to auscultation bilaterally - Cardiovascular Cardiovascular exam: Present: regular rate and rhythm - GI/Abdominal GI/Abdominal exam: Present: normal bowel sounds, soft - Extremities Exam Extremities exam: Present: edema (trace) - Neurological Exam Neurological exam: Present: alert, oriented X3 - Skin Skin exam: Present: warm, dry Results - Labs CBC & BMP: 10/29/16 03:15 10/30/16 02:01 Lab Results: I have reviewed the past 24 hour labs
--- NOTE | 2016-10-30 11:09 | General Surgery Progress Note ---
Assessment and Plan (1) Hemopneumothorax on left Status: Acute Assessment and plan: Status post chest tube for hemopneumothorax. Plan: Renal failure appears to have resolved. Working with physical therapy. He is likely going to require swing bed or rehab next week. Drainage from the chest tube site is improved. Recheck chest x-ray in the morning. Continue physical therapy. Current Visit: Yes Subjective Narrative: Had some nausea when he was working with physical therapy yesterday. He was unable to get out of bed but did do some exercises while lying down. Drainage from the chest tube site has improved. Other than weakness he appears to be doing well. Exam - Constitutional Vitals: Period Temp Pulse Resp BP Sys/Branch Pulse Ox Last 24 Hr 97.8 F-99.2 F 70-86 15-20 136-174/68-89 95-100 General appearance: no acute distress - Head Head exam: Present: normocephalic - ENT Mouth exam: Present: normal external inspection - Neck Neck exam: Present: normal inspection - Respiratory Respiratory exam: Present: clear to auscultation bilaterally - Cardiovascular Cardiovascular exam: Present: RRR - GI/Abdominal GI/Abdominal exam: Present: soft (Nontender nondistended) - Extremities Exam Extremities exam: Present: normal inspection - Neurological Exam Neurological exam: Present: alert, oriented X3 Speech: Present: normal Results - Labs CBC & BMP: 10/29/16 03:15 10/30/16 02:01 Lab Results: I have reviewed the past 24 hour labs
--- NOTE | 2016-10-30 12:21 | Nephrology Progress Note ---
Nephrology - PN: Subj Interval history: No shortness of breath. He states his appetite is poor but no nausea or abdominal pain Exam (PN)-Nephrology - Vital Signs Vital signs: Period Temp Pulse Resp BP Sys/Branch Pulse Ox Last 24 Hr 97.8 F-99.2 F 70-86 15-20 136-174/68-89 95-100 Exam: Gen.: Alert and oriented x3. ENT: Pupils equal round reactive to light. EOMs intact. Mucous membranes moist. Neck: Supple. No JVD or bruit. Cardiovascular: Regular rate and rhythm. No murmur rub or gallop Lungs: Clear Abdomen: Soft. Nontender. Positive bowel sounds. No organomegaly Extremities: Trace edema - Lab 10/29/16 03:15 10/30/16 02:01 Most recent lab results ABG pH 7.265 (7.35-7.45) L 10/25/16 09:18 ABG pCO2 31.2 MM HG (35-48) L 10/25/16 09:18 ABG pO2 101.4 MM HG (80-95) H 10/25/16 09:18 ABG HCO3 13.8 MMOL/L (20-26) L 10/25/16 09:18 ABG O2 Saturation 97.2 % (95-100) 10/25/16 09:18 Calcium 8.1 MG/DL (8.5-10.1) L 10/30/16 02:01 Magnesium 1.9 MG/DL (1.8-2.4) 10/30/16 02:01 Assessment and Plan (1) Acute kidney injury Status: Acute Assessment and plan: 71-year-old man with: * Acute renal failure. Resolved. Fluid balance negative. No ultrafiltration required today * Diabetes mellitus * CAD * Multiple rib fractures * Pulmonary contusion Current Visit: Yes (2) Hemopneumothorax on left Status: Acute Current Visit: Yes (3) Pulmonary contusion Status: Acute Current Visit: Yes Qualifiers: Encounter type: initial encounter Laterality: left Qualified Code(s): S27.321A - Contusion of lung, unilateral, initial encounter (4) Ribs, multiple fractures Problem details: Rib fractures left T2 through T5 Status: Acute Current Visit: Yes Qualifiers: Encounter type: initial encounter Fracture type: closed Laterality: left Qualified Code(s): S22.42XA - Multiple fractures of ribs, left side, initial encounter for closed fracture (5) Coronary artery disease Status: Chronic Current Visit: Yes Qualifiers: Coronary Disease-Associated Artery/Lesion type: [place] artery [place] vs. 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
--- NOTE | 2016-10-30 13:11 | Pulmonology Progress Note ---
Pulmonary - PN: Subj Interval history: This is a 71-year-old white male whom I saw in pulmonary consultation on 2016. My impressions were. #1: Acute left-sided hemopneumothorax status post trauma after being kicked by his Benyle. This required chest tube placement which is being managed by Dr. Maxwell. #2: Hyperkalemia. On review the patient's home medications he was taking spironolactone and lisinopril. This is almost certainly the cause of this. He is already been given Kayexalate. We agree with this and will hold the spironolactone and lisinopril for the time being. 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 Since that time the patient's potassiums have come under control. He has developed renal failure. His creatinine is increased from 1.50-2.20. I appreciate Dr. Mika Wei's nephrology consultation. Today I have consulted pain medicine for possible nerve block. Patient has quite a bit of pain from his fractured ribs. ABGs on FiO2 28% show a pH of 7.219, PCO2 of 41.5, PO2 91.6 and a bicarb of 16.6. Patient's chest x-ray show left lower lung contusion with associated fluid. Patient has developed a small amount of fluid at the base of his right lung and his BNP has increased to 1148. I suspect that we are dealing with an element of congestive heart failure. I have ordered an echocardiogram. And I have consulted cardiology. Note that the patient's hemoglobin A1c is 11.0. His glucoses are now coming under pretty good control. H&H is 9.2/26.8. White count is dropped 6200 and platelets are 120,000. Repeat urinalysis. Check sputum for Gram stain culture and sensitivity. 10/25/2016. Last night I have problems with oxygenation but this seems to improve. Today the patient looks stronger. He has taken a better deep of breath. His chest x-ray shows loculated fluid on the left. There is slight elevation of the left hemidiaphragm with preservation of normal curvature. Patient has a right lower lung pleural effusion. I suspect he has mild congestive heart failure. Creatinine is 5.00 with a BUN of 49. Electrolytes are normal. Dr. Mika Wei and I have discussed the case. ABGs show pH is 7.265, PCO2 31.2, PO2 101.4. CBC is stable. Patient's had a low-grade temp. I will repeat his urinalysis which was previously negative. When I first interviewed the patient he told me he had been kicked by Eulogio. Later he changed his story to kicked by medial when talking to other doctors. Today I asked him for confirmation and he told me that he was actually kicked by a large donkey. 10/26/2016. This patient was seen earlier this morning and subsequently moved to the floor. He has done well from a pulmonary standpoint. Is in much less distressed and is been being .Linear areas of atelectasis near the bases in both lungHis chest x-ray shows a small amount of fluid at the bases. Creatinine is down to 3.10 with a BUN of 36 electrolytes are normal there has been a slight drop in H&H to 9.4/26.8. White count is 6700 and platelets are 153,000. Microbiology is negative. 10/29/2016.Patient was seen today along with his nurse and 2 female family members. He is breathing better and doing better. He said having dialysis yesterday helped him. Today's chest x-ray shows a normal heart. He still has some fluid and/or loculated blood on the left side where he had multiple fractured ribs. His right chest is clear and there is no pleural effusions. Electrolytes are normal. Creatinine is dropped 1.40. H&H is 9.5/27.7 white count is 8300. Platelets are 141,000. Overall this patient is improved. 10/30/2016. Patient was seen along with his family. I think his was present. Chest x-ray from 10/29/2016 shows a normal-sized heart. Pulmonary arteries are slightly prominent. There is no hilar adenopathy. There is some uncoiling of the thoracic aorta. There are wire sutures sutures in the sternum. Right lung reveals some mild increase interstitial markings at the bases. Left lung reveals some residual changes associated with recent rib fractures. Patient is breathing well and his chest is clear. He has no sputum production and there is no hemoptysis. He is afebrile. Dialysis is helped him a great deal. His creatinine is now 1.3 and BUNs 28 and he is out of congestive heart failure with normal electrolytes. Her my standpoint the patient is doing well and I will sign off. I discussed this with the patient and his . Please reconsult me as needed Physical exam. Vital signs. See below. Most temps for the last 3 days have been in the 99's. Psychiatric. Oriented 3 Face. Symmetrical. No edema of the lips or tongue Neck. Symmetrical. No meningismus Lymphatics. No submandibular cervical supraclavicular or epitrochlear adenopathy Chest. Close to normal inspiratory excursion. Breath sounds are clear Heart. No definite gallop. Extremities. No definite deep venous thrombophlebitis. The remainder the exam is negative. Plan: 10/21/2016 #1: Hold spironolactone and lisinopril #2: We will add Flector patch for pain control in addition to his already ordered medications #3: Dr. Maxwell is managing the patient's chest tube #4: Daily chest x-ray and labs #5: Inhalation therapy #6: See orders 10/24/2016 1. Pain medicine consultation for possible nerve block 2. Echocardiogram 3. Cardiology consultation 4. As per Dr. Wei. We have discussed the case and coordinated our care. Patient appears to have acute tubular necrosis and will probably require short- term dialysis. See Dr. Wei's note. 5. Follow chest x-ray 6. Urinalysis 7. Sputum for Gram stain culture and sensitive 10/25/2016. 1. See today's note, above. 2. Continue present regimen. 3. Not a [place]. Not amenable. A donkey did it 10/26/2016. 1. See today's note above. 2. Agree with plans. 10/29/2016. 1. See my note above 2. Dialyzing off fluid is helping this patient a good bit 3. Have made no changes to patient's regimen. 10/30/2016. 1. See today's note above. 2. From a pulmonary standpoint this patient is doing very well. I will sign off. Reconsult as needed Exam (Progress Note) - Constitutional Vitals: Period Temp Pulse Resp BP Sys/Branch Pulse Ox Last 24 Hr 97.8 F-99.2 F 70-86 15-20 136-174/68-89 95-100 Results - Labs CBC & BMP: 10/29/16 03:15 10/30/16 02:01
--- NOTE | 2016-10-30 14:44 | Cardiology Progress Note ---
Assessment and Plan (1) Acute kidney injury Status: Acute Current Visit: Yes (2) Anemia Status: Acute Current Visit: Yes (3) Hemopneumothorax on left Status: Acute Current Visit: Yes (4) Hypomagnesemia Status: Acute Current Visit: Yes (5) New onset atrial fibrillation Status: Acute Current Visit: Yes (6) Pulmonary contusion Status: Acute Current Visit: Yes Qualifiers: Encounter type: initial encounter Laterality: left Qualified Code(s): S27.321A - Contusion of lung, unilateral, initial encounter (7) Ribs, multiple fractures Problem details: Rib fractures left T2 through T5 Status: Acute Current Visit: Yes Qualifiers: Encounter type: initial encounter Fracture type: closed Laterality: left Qualified Code(s): S22.42XA - Multiple fractures of ribs, left side, initial encounter for closed fracture (8) Coronary artery disease Status: Chronic Current Visit: Yes Qualifiers: Coronary Disease-Associated Artery/Lesion type: [place] artery [place] vs. transplanted heart: [place] heart Associated angina: without angina Qualified Code(s): I25.10 - Atherosclerotic heart disease of [place] coronary artery without angina pectoris (9) Dyslipidemia Status: Chronic Current Visit: Yes (10) History of hypertension Status: Chronic Current Visit: Yes (11) History of insulin dependent diabetes mellitus Status: Chronic Current Visit: Yes Cardiology - PN: Subj Interval history: Cardiology note 71-year-old man status post multiple trauma following a mule kick No temperature. O2 sat 98 on 2 L cannula. Blood pressure 140/74 after starting hydralazine yesterday Rib still little tender. Regular rhythm soft systolic murmur. Decreased breath sounds but fairly clear Abdomen benign No leg edema Impression Status post multiple rib fractures and left hemopneumothorax after being kicked by a mule. Acute renal failure requiring dialysis Paroxysmal atrial fibrillation converted chemically with IV Cardizem Chronic hypertension Longtime diabetes Status post CABG Plan analgesics as needed Encourage nutrition Continue hydralazine 50 mg twice daily Continue carvedilol 12.5 mg twice daily Continue atorvastatin 20 mg daily BMP in a.m. Exam (Progress Note) - Constitutional Vitals: Period Temp Pulse Resp BP Sys/Branch Pulse Ox Last 24 Hr 97.8 F-99.2 F 70-86 15-20 132-174/68-89 94-100 Result/EKG - Labs CBC & BMP: 10/29/16 03:15 10/30/16 02:01 Labs: Laboratory Results - last 24 hr 10/29/16 10/29/16 10/30/16 15:23 20:25 02:01 Sodium 140 Potassium 4.1 Chloride 103 Carbon Dioxide 34 H Anion Gap 7.1 BUN 28 H Creatinine 1.30 GFR Calculation 65 BUN/Creatinine Ratio 21.00 H Glucose 195 H POC Glucose 353 H 263 H Calculated Osmolality 289.4 Calcium 8.1 L Magnesium 1.9 10/30/16 10/30/16 07:32 12:07 Sodium Potassium Chloride Carbon Dioxide Anion Gap BUN Creatinine GFR Calculation BUN/Creatinine Ratio Glucose POC Glucose 226 H 337 H Calculated Osmolality Calcium Magnesium
[2016-10-30] MEDS: ESCITALOPRAM 10 MG TABLET PO SCH (21:24)
[2016-10-30] MEDS: FLUCONAZOLE INJ 200 MG in PREMIX 1 EACH IV SCH (21:30)
[2016-10-31] MEDS: ONDANSETRON 4 MG/2 ML VIAL IV PRN ×2 (01:06→20:57)
[2016-10-31 03:53] LABS: Calcium 8.4 MG/DL (8.5-10.1); Osmolality,Calculated 283.4 MOS/KG (273-304); Potassium 4.4 MMOL/L (3.5-5.1)
[2016-10-31] MEDS ORDERED: PROMETHAZINE INJ 12.5 MG in SODIUM CHLORIDE 0.9% 50 ML IV ONE (04:42)
[2016-10-31] MEDS: ALBUTEROL/IPRATROPIUM 3 ML NEB RESP TX SCH ×4 (07:35→20:06)
[2016-10-31] MEDS: INSULIN LISPRO 100 UNIT/ML SUBCUT SCH ×4 (08:16→20:57)
[2016-10-31] MEDS: INSULIN GLARGINE 100 UNIT/ML SUBCUT SCH ×2 (09:30→20:58)
[2016-10-31] MEDS: PANTOPRAZOLE 40 MG TABLET PO SCH (09:37)
[2016-10-31] MEDS: ATORVASTATIN 20 MG TABLET PO SCH (09:37)
[2016-10-31] MEDS: SODIUM BICARBONATE 650 MG TABLET PO SCH ×3 (09:37→20:59)
[2016-10-31] MEDS: CARVEDILOL 12.5 MG TABLET PO SCH ×2 (09:37→20:58)
[2016-10-31] MEDS: ASCORBIC ACID 500 MG TABLET PO SCH ×2 (09:37→20:58)
[2016-10-31] MEDS: GLIMEPIRIDE 2 MG TABLET PO SCH ×2 (09:37→16:35)
--- NOTE | 2016-10-31 10:02 | XRay Report ---
Portable chest October 31, 2016 at 0611 hours Indication: Decreasing saturation, shortness of breath Nadia images dated October 29, 2016 at 0416 hours Findings: Worsening interstitial edema pattern with progressed bilateral pleural and parenchymal opacities now obscuring the hemidiaphragms. Supporting tubes and lines are unchanged in position. Prior valve replacement and sternotomy wires midline. Multiple displaced and overriding left rib fractures are unchanged in position. Impression: 1. Worsening bibasilar pleural and parenchymal consolidations 2. Appearance suggests developing interstitial edema PROCEDURE INTERPRETED AT [facility] DEPARTMENT OF RADIOLOGY Final Report Signed by: Venu Perez
[2016-10-31] MEDS: BACITRACIN OINT 0.9 GM PACK TOP SCH (11:42)
--- NOTE | 2016-10-31 11:50 | General Surgery Progress Note ---
Assessment and Plan (1) Hemopneumothorax on left Status: Acute Assessment and plan: Hemopneumothorax stable chest x-ray. Patient urinating well. Concern for worsening consolidation. Countersinker following and we appreciate their input. Patient continues on Diflucan. He still receiving only IV analgesics; orals were encouraged and this was discussed with the nurse. Encouraged him to continue incentive spirometry and increased mobilization. Current Visit: Yes (2) Acute renal failure Status: Acute Assessment and plan: Creatinine continues to improve. Per the family the patient does not require additional dialysis. Appreciate nephrology input. Bonilla remains in place per nephrology. Previous left in place due to scrotal and penile edema; defer removal to nephrology team. Current Visit: Yes (3) Ribs, multiple fractures Problem details: Rib fractures left T2 through T5 Status: Acute Assessment and plan: As above Current Visit: Yes Qualifiers: Encounter type: initial encounter Fracture type: closed Laterality: left Qualified Code(s): S22.42XA - Multiple fractures of ribs, left side, initial encounter for closed fracture (4) Prophylactic measure Status: Acute Assessment and plan: DVT prophylaxis: SID hose in place. Hold pharmacologic prophylaxis considering hemothorax. Moiblize patient. Physical therapy has been consulted. GI prophylaxis: PPI daily Current Visit: Yes Subjective Patient reports: Present: no new complaints, feels better, still having pain, afebrile, other (Decreased drainage from chest tube site) Exam - Constitutional Vitals: Period Temp Pulse Resp BP Sys/Branch Pulse Ox Last 24 Hr 97.6 F-98.9 F 70-78 17-20 128-175/67-86 92-99 General appearance: no acute distress - Respiratory Respiratory exam: Present: clear to auscultation bilaterally - Cardiovascular Cardiovascular exam: Present: RRR - GI/Abdominal GI/Abdominal exam: Present: normal bowel sounds, soft. Absent: tenderness - Extremities Exam Extremities exam: Absent: calf tenderness, edema - Neurological Exam Neurological exam: Present: alert, oriented X3 Speech: Present: normal - Skin Skin exam: Present: normal color, warm Results - Labs CBC & BMP: 10/29/16 03:15 10/31/16 03:02 - Diagnostic Findings Procedure: Chest x-ray: image reviewed by me, report reviewed by me (Chest x- ray stable from hemopneumothorax standpoint; worsening bibasilar, consolidations and increased interstitial edema)
--- NOTE | 2016-10-31 13:08 | Pulmonology Progress Note ---
Pulmonary - PN: Subj Interval history: This is a 71-year-old white male whom I saw in pulmonary consultation on 2016. My impressions were. #1: Acute left-sided hemopneumothorax status post trauma after being kicked by his [place]. This required chest tube placement which is being managed by Dr. Maxwell. #2: Hyperkalemia. On review the patient's home medications he was taking spironolactone and lisinopril. This is almost certainly the cause of this. He is already been given Kayexalate. We agree with this and will hold the spironolactone and lisinopril for the time being. 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 Since that time the patient's potassiums have come under control. He has developed renal failure. His creatinine is increased from 1.50-2.20. I appreciate Dr. Mika Wei's nephrology consultation. Today I have consulted pain medicine for possible nerve block. Patient has quite a bit of pain from his fractured ribs. ABGs on FiO2 28% show a pH of 7.219, PCO2 of 41.5, PO2 91.6 and a bicarb of 16.6. Patient's chest x-ray show left lower lung contusion with associated fluid. Patient has developed a small amount of fluid at the base of his right lung and his BNP has increased to 1148. I suspect that we are dealing with an element of congestive heart failure. I have ordered an echocardiogram. And I have consulted cardiology. Note that the patient's hemoglobin A1c is 11.0. His glucoses are now coming under pretty good control. H&H is 9.2/26.8. White count is dropped 6200 and platelets are 120,000. Repeat urinalysis. Check sputum for Gram stain culture and sensitivity. 10/25/2016. Last night I have problems with oxygenation but this seems to improve. Today the patient looks stronger. He has taken a better deep of breath. His chest x-ray shows loculated fluid on the left. There is slight elevation of the left hemidiaphragm with preservation of normal curvature. Patient has a right lower lung pleural effusion. I suspect he has mild congestive heart failure. Creatinine is 5.00 with a BUN of 49. Electrolytes are normal. Dr. Mika Wei and I have discussed the case. ABGs show pH is 7.265, PCO2 31.2, PO2 101.4. CBC is stable. Patient's had a low-grade temp. I will repeat his urinalysis which was previously negative. When I first interviewed the patient he told me he had been kicked by Eulogio. Later he changed his story to kicked by medial when talking to other doctors. Today I asked him for confirmation and he told me that he was actually kicked by a large donkey. 10/26/2016. This patient was seen earlier this morning and subsequently moved to the floor. He has done well from a pulmonary standpoint. Is in much less distressed and is been being .Linear areas of atelectasis near the bases in both lungHis chest x-ray shows a small amount of fluid at the bases. Creatinine is down to 3.10 with a BUN of 36 electrolytes are normal there has been a slight drop in H&H to 9.4/26.8. White count is 6700 and platelets are 153,000. Microbiology is negative. 10/29/2016.Patient was seen today along with his nurse and 2 female family members. He is breathing better and doing better. He said having dialysis yesterday helped him. Today's chest x-ray shows a normal heart. He still has some fluid and/or loculated blood on the left side where he had multiple fractured ribs. His right chest is clear and there is no pleural effusions. Electrolytes are normal. Creatinine is dropped 1.40. H&H is 9.5/27.7 white count is 8300. Platelets are 141,000. Overall this patient is improved. 10/30/2016. Patient was seen along with his family. I think his was present. Chest x-ray from 10/29/2016 shows a normal-sized heart. Pulmonary arteries are slightly prominent. There is no hilar adenopathy. There is some uncoiling of the thoracic aorta. There are wire sutures sutures in the sternum. Right lung reveals some mild increase interstitial markings at the bases. Left lung reveals some residual changes associated with recent rib fractures. Patient is breathing well and his chest is clear. He has no sputum production and there is no hemoptysis. He is afebrile. Dialysis is helped him a great deal. His creatinine is now 1.3 and BUNs 28 and he is out of congestive heart failure with normal electrolytes. Her my standpoint the patient is doing well and I will sign off. I discussed this with the patient and his . Please reconsult me as needed 10/30/2016. This patient was seen along with his daughter who is his main roofer gypsum. He is much better. He is somewhat weak. Nausea is completely resolved. He complains of obstipation. He would like to go home and I agree he can safely go home. I suggested he go home with a few Phenergan which worked good for him and I would give him another 3 days of Tamiflu 75 mg p.o. twice daily. His screen was negative but 50% of people with the flu have negative screens. Chest x-ray shows cardiomegaly. There are benign calcifications of both hilar areas. Pulmonary arteries are top normal. Mediastinum is probably normal but looks abnormal because this is a shower right anterior oblique film. Lung lovera reveal no masses infiltrates or pulmonary edema. White count is 5200 with 51 segs 34 lymphs and 10 monos. H&H is 10.5/33.1. Platelets are 118,000. Electrolytes are normal. Creatinine is 2.0 with a BUN of 35. Natruretic peptide is 594. I have stopped the patient's fluid. Physical exam. Vital signs. See below. Fever has resolved. Afebrile Psychiatric. Oriented 3 Face. Symmetrical. No edema of the lips or tongue Neck. Symmetrical. No meningismus Lymphatics. No submandibular cervical supraclavicular or epitrochlear adenopathy Chest. Close to normal inspiratory excursion. Breath sounds are clear Heart. No definite gallop. Abdomen is benign. Nontender. Hypoactive bowel sounds are present Extremities. No definite deep venous thrombophlebitis. The remainder the exam is negative. Plan: 10/21/2016 #1: Hold spironolactone and lisinopril #2: We will add Flector patch for pain control in addition to his already ordered medications #3: Dr. Maxwell is managing the patient's chest tube #4: Daily chest x-ray and labs #5: Inhalation therapy #6: See orders 10/24/2016 1. Pain medicine consultation for possible nerve block 2. Echocardiogram 3. Cardiology consultation 4. As per Dr. Wei. We have discussed the case and coordinated our care. Patient appears to have acute tubular necrosis and will probably require short- term dialysis. See Dr. Wei's note. 5. Follow chest x-ray 6. Urinalysis 7. Sputum for Gram stain culture and sensitive 10/25/2016. 1. See today's note, above. 2. Continue present regimen. 3. Not a [place]. Not amenable. A donkey did it 10/26/2016. 1. See today's note above. 2. Agree with plans. 10/29/2016. 1. See my note above 2. Dialyzing off fluid is helping this patient a good bit 3. Have made no changes to patient's regimen. 10/30/2016. 1. See today's note above. 2. From a pulmonary standpoint this patient is doing very well. I will sign off. Reconsult as needed 10/31/2016. 1. See my note above. 2. Okay for discharge 3. Patient has an appointment to see me in January and he will call on a as needed basis 4. DC IV fluids 5. Tamiflu 75 mg twice daily for 3 days 6. As needed Phenergan on a short-term basis Exam (Progress Note) - Constitutional Vitals: Period Temp Pulse Resp BP Sys/Branch Pulse Ox Last 24 Hr 97.6 F-98.7 F 70-78 16-20 128-175/67-86 92-99 Results - Labs CBC & BMP: 10/29/16 03:15 10/31/16 03:02
--- NOTE | 2016-10-31 13:12 | Cardiology Progress Note ---
Assessment and Plan (1) Acute kidney injury Status: Acute Current Visit: Yes (2) Anemia Status: Acute Current Visit: Yes (3) Hemopneumothorax on left Status: Acute Current Visit: Yes (4) Hypomagnesemia Status: Acute Current Visit: Yes (5) New onset atrial fibrillation Status: Acute Current Visit: Yes (6) Pulmonary contusion Status: Acute Current Visit: Yes Qualifiers: Qualified Code(s): S27.321A - Contusion of lung, unilateral, initial encounter (7) Ribs, multiple fractures Problem details: Rib fractures left T2 through T5 Status: Acute Current Visit: Yes Qualifiers: Qualified Code(s): S22.42XA - Multiple fractures of ribs, left side, initial encounter for closed fracture (8) Coronary artery disease Status: Chronic Current Visit: Yes Qualifiers: Qualified Code(s): I25.10 - Atherosclerotic heart disease of [place] coronary artery without angina pectoris (9) Dyslipidemia Status: Chronic Current Visit: Yes (10) History of hypertension Status: Chronic Current Visit: Yes (11) History of insulin dependent diabetes mellitus Status: Chronic Current Visit: Yes Cardiology - PN: Subj Interval history: Cardiology note 71-year-old man status post multiple trauma following a mule kick No temperature. O2 sat 94 on 2 L cannula. Decreased breath sounds few rhonchi in the left base Regular rhythm soft murmur as before Abdomen benign No leg edema Blood pressure 135/70 Lab data today White count 8.3 hemoglobin 9.5 hematocrit 27.7 Sodium 140 potassium 4.4 chloride 102 CO2 34 BUN 24 creatinine 1.20 glucose 180 Impression Status post multiple rib fractures and left hemopneumothorax after being kicked by a mule Acute renal failure requiring temporary dialysis Paroxysmal atrial fibrillation converted chemically with IV Cardizem Chronic hypertension Status post three-vessel CABG 2011 Longtime diabetes Plan Analgesics as needed Encourage nutrition Continue hydralazine 50 mg twice daily Continue carvedilol 12.5 mg twice daily Continue atorvastatin 20 mg daily It does not look like he will require any further dialysis Exam (Progress Note) - Constitutional Vitals: Period Temp Pulse Resp BP Sys/Branch Pulse Ox Last 24 Hr 97.6 F-98.7 F 70-78 16-20 128-175/67-86 92-99 Result/EKG - Labs CBC & BMP: 10/29/16 03:15 10/31/16 03:02 Labs: Laboratory Results - last 24 hr 10/30/16 10/30/16 10/30/16 12:07 16:12 20:11 Sodium Potassium Chloride Carbon Dioxide Anion Gap BUN Creatinine GFR Calculation BUN/Creatinine Ratio Glucose POC Glucose 337 H 291 H 278 H Calculated Osmolality Calcium 10/31/16 10/31/16 10/31/16 03:02 07:10 10:48 Sodium 140 Potassium 4.4 Chloride 102 Carbon Dioxide 34 H Anion Gap 8.4 BUN 24 H Creatinine 1.20 GFR Calculation 72 BUN/Creatinine Ratio 20.00 Glucose 118 H POC Glucose 82 160 H Calculated Osmolality 283.4 Calcium 8.4 L
--- NOTE | 2016-10-31 13:51 | Hospitalist Progress Note ---
Assessment and Plan (1) general debility Status: Acute Assessment and plan: 1)encourage work with PT. Consult case management for discharge planning. He is willing to go to TMR or swing bed if he needs to. Dr Navarro is going to ask the coordinator at [facility] to review his chart. 2)DM- continue SSI and amaryl. increased lantus to 25U BID yesterday and glucose down to under 200. 3)HTN- controlled 4)KARY- resolved. still on bicarb orally. DC anguiano. 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 He has not walked, but is able to sit in the chair. He is interested in further rehab and I have asked Dr Navarro to look at his case to see if he is a TMR candidate. If not, he will need swing bed. His scrotal edema and penile edema is much improved and I will have them take his anguiano out today for voiding trial before transfer. Exam - Constitutional Vitals: Period Temp Pulse Resp BP Sys/Branch Pulse Ox Last 24 Hr 97.6 F-98.7 F 70-78 16-20 128-175/67-86 92-99 General appearance: normal weight, no acute distress - Eye Eye exam: Present: EOMI. Absent: scleral icterus - Respiratory Respiratory exam: Present: clear to auscultation bilaterally - Cardiovascular Cardiovascular exam: Present: regular rate and rhythm - GI/Abdominal GI/Abdominal exam: Present: normal bowel sounds, soft. Absent: tenderness - Extremities Exam Extremities exam: Absent: edema Results - Labs CBC & BMP: 10/29/16 03:15 10/31/16 03:02 Lab Results: I have reviewed the past 24 hour labs
--- NOTE | 2016-10-31 15:06 | Nephrology Progress Note ---
Nephrology - PN: Subj Interval history: He feels better overall today. No shortness of breath. Exam (PN)-Nephrology - Vital Signs Vital signs: Period Temp Pulse Resp BP Sys/Branch Pulse Ox Last 24 Hr 97.6 F-98.7 F 70-78 16-20 128-175/67-86 92-99 Exam: Gen.: Alert and oriented x3. ENT: Pupils equal round reactive to light. EOMs intact. Mucous membranes moist. Neck: Supple. No JVD or bruit. Cardiovascular: Regular rate and rhythm. No murmur rub or gallop Lungs: Clear Abdomen: Soft. Nontender. Positive bowel sounds. No organomegaly Extremities: Trace edema - Lab 10/29/16 03:15 10/31/16 03:02 Most recent lab results ABG pH 7.265 (7.35-7.45) L 10/25/16 09:18 ABG pCO2 31.2 MM HG (35-48) L 10/25/16 09:18 ABG pO2 101.4 MM HG (80-95) H 10/25/16 09:18 ABG HCO3 13.8 MMOL/L (20-26) L 10/25/16 09:18 ABG O2 Saturation 97.2 % (95-100) 10/25/16 09:18 Calcium 8.4 MG/DL (8.5-10.1) L 10/31/16 03:02 Magnesium 1.9 MG/DL (1.8-2.4) 10/30/16 02:01 Assessment and Plan (1) Acute kidney injury Status: Acute Assessment and plan: 71-year-old man with: * Acute renal failure. Resolved. Fluid balance negative. Urine output 2.3 L. * Diabetes mellitus * CAD * Multiple rib fractures * Pulmonary contusion Current Visit: Yes (2) Hemopneumothorax on left Status: Acute Current Visit: Yes (3) Pulmonary contusion Status: Acute Current Visit: Yes Qualifiers: Encounter type: initial encounter Laterality: left Qualified Code(s): S27.321A - Contusion of lung, unilateral, initial encounter (4) Ribs, multiple fractures Problem details: Rib fractures left T2 through T5 Status: Acute Current Visit: Yes Qualifiers: Encounter type: initial encounter Fracture type: closed Laterality: left Qualified Code(s): S22.42XA - Multiple fractures of ribs, left side, initial encounter for closed fracture (5) Coronary artery disease Status: Chronic Current Visit: Yes Qualifiers: Coronary Disease-Associated Artery/Lesion type: [place] artery [place] vs. transplanted heart: [place] heart Associated angina: without angina Qualified Code(s): I25.10 - Atherosclerotic heart disease of [place] coronary artery without angina pectoris (6) Diabetes mellitus Status: Chronic Current Visit: Yes Qualifiers: Diabetes mellitus type: type 2 Diabetes mellitus long term care phlebotomist insulin use: with long term care phlebotomist use
[2016-10-31] MEDS: COLLAGENASE OINT 30 GM TUBE TOP SCH (16:37)
[2016-10-31] MEDS: FLUCONAZOLE INJ 200 MG in PREMIX 1 EACH IV SCH (20:56)
[2016-10-31] MEDS: ESCITALOPRAM 10 MG TABLET PO SCH (20:59)
[2016-11-01] MEDS: ONDANSETRON 4 MG/2 ML VIAL IV PRN (03:36)
[2016-11-01 07:26] LABS: Calcium 8.6 MG/DL (8.5-10.1); Osmolality,Calculated 282.7 MOS/KG (273-304); Potassium 4.6 MMOL/L (3.5-5.1)
[2016-11-01] MEDS: ALBUTEROL/IPRATROPIUM 3 ML NEB RESP TX SCH ×3 (07:55→14:15)
[2016-11-01] MEDS: INSULIN LISPRO 100 UNIT/ML SUBCUT SCH ×2 (08:11→11:38)
[2016-11-01] MEDS: COLLAGENASE OINT 30 GM TUBE TOP SCH (08:11)
[2016-11-01] MEDS: CARVEDILOL 12.5 MG TABLET PO SCH (08:12)
[2016-11-01] MEDS: ASCORBIC ACID 500 MG TABLET PO SCH (08:12)
[2016-11-01] MEDS: PANTOPRAZOLE 40 MG TABLET PO SCH (08:12)
[2016-11-01] MEDS: INSULIN GLARGINE 100 UNIT/ML SUBCUT SCH (08:12)
[2016-11-01] MEDS: GLIMEPIRIDE 2 MG TABLET PO SCH (08:13)
[2016-11-01] MEDS: ATORVASTATIN 20 MG TABLET PO SCH (08:14)
--- NOTE | 2016-11-01 08:14 | Nephrology Progress Note ---
Nephrology - PN: Subj Interval history: Mr. Morse is seen in follow-up of his acute renal failure. He is recovered his renal function and now has a creatinine 1.2 his bicarb was 34 and he can certainly stop his sodium bicarb. He is hoping to go home today and we will remove his temporary dialysis cath which she will no longer need. He still has some scrotal edema that is going to take a bit of time to resolve but with the return of his kidney function I think he will take care of that. His chest is clear he is bright and looking forward to going home. Exam (PN)-Nephrology - Vital Signs Vital signs: Period Temp Pulse Resp BP Sys/Branch Pulse Ox Last 24 Hr 97.7 F-99.3 F 69-79 16-20 125-158/67-87 90-99 - Lab 10/29/16 03:15 11/01/16 06:13 Most recent lab results ABG pH 7.265 (7.35-7.45) L 10/25/16 09:18 ABG pCO2 31.2 MM HG (35-48) L 10/25/16 09:18 ABG pO2 101.4 MM HG (80-95) H 10/25/16 09:18 ABG HCO3 13.8 MMOL/L (20-26) L 10/25/16 09:18 ABG O2 Saturation 97.2 % (95-100) 10/25/16 09:18 Calcium 8.6 MG/DL (8.5-10.1) 11/01/16 06:13 Magnesium 1.9 MG/DL (1.8-2.4) 10/30/16 02:01 Assessment and Plan (1) Acute kidney injury Status: Acute Current Visit: Yes (2) Ribs, multiple fractures Problem details: Rib fractures left T2 through T5 Status: Acute Current Visit: Yes Qualifiers: Encounter type: initial encounter Fracture type: closed Laterality: left Qualified Code(s): S22.42XA - Multiple fractures of ribs, left side, initial encounter for closed fracture (3) History of insulin dependent diabetes mellitus Status: Chronic Current Visit: Yes (4) Coronary artery disease Status: Chronic Current Visit: Yes Qualifiers: Coronary Disease-Associated Artery/Lesion type: [place] artery [place] vs. transplanted heart: [place] heart Associated angina: without angina Qualified Code(s): I25.10 - Atherosclerotic heart disease of [place] coronary artery without angina pectoris
--- NOTE | 2016-11-01 08:14 | XRay Report ---
Portable chest November 01, 2016 at 0607 hours Indication: Postop difficulty breathing pleural effusions Comparison images from previous day at 0609 hours Findings: Cardiomediastinal contours are stable and supporting lines. Prior valve replacement sternotomy lines at midline. Slight improvement in the overall interstitial pattern and aeration of the lung bases. No acute osseous abnormalities. Impression: Slight improvement in the interstitial edema pattern and bilateral pleural effusions and PROCEDURE INTERPRETED AT [facility] DEPARTMENT OF RADIOLOGY Final Report Signed by: Venu Perez
[2016-11-01] MEDS ORDERED: BACITRACIN OINT 28.35 GM TUBE TOP SCH (09:00)
--- NOTE | 2016-11-01 10:44 | Hospitalist Progress Note ---
Assessment and Plan (1) general debility Status: Acute Assessment and plan: 1)encourage work with PT. Consult case management for discharge planning. 2)DM- continue SSI and amaryl. increased lantus to 25U BID yesterday and glucose 82-339. recommend he return home on increased dose of lantus at 15U BID with resumption of his home high dose SSI as listed in home med rec. 3)HTN- controlled 4)KARY- resolved. still on bicarb orally. DC anguiano. 5)on fluconazole for yeast in sputum for 9 days- can stop today. Current Visit: Yes (2) Ribs, multiple fractures Problem details: Rib fractures left T2 through T5 Status: Acute Current Visit: Yes Qualifiers: Encounter type: initial encounter Fracture type: closed Laterality: left Qualified Code(s): S22.42XA - Multiple fractures of ribs, left side, initial encounter for closed fracture (3) Hemopneumothorax on left Status: Acute Current Visit: Yes (4) Diabetes mellitus Status: Chronic Current Visit: Yes Qualifiers: Diabetes mellitus type: type 2 Diabetes mellitus intermediate insulin use: with long term care pharmacist use Hospitalist: Subjective Interval history: MR Morse has been up and walked a bit and now he and his both want him to go home instead of to [facility]. They have heard good things about home PT in their area. He denies new problems but continues to have pain. Nephrology is planning to take his HD catheter out today. He has voided without anguiano since last night. Exam - Constitutional Vitals: Period Temp Pulse Resp BP Sys/Branch Pulse Ox Last 24 Hr 97.7 F-99.3 F 69-83 16-20 125-158/67-87 90-99 General appearance: normal weight, no acute distress - Eye Eye exam: Present: EOMI. Absent: scleral icterus - Respiratory Respiratory exam: Present: clear to auscultation bilaterally - Cardiovascular Cardiovascular exam: Present: regular rate and rhythm - GI/Abdominal GI/Abdominal exam: Present: normal bowel sounds, soft. Absent: tenderness - Extremities Exam Extremities exam: Absent: edema - Neurological Exam Neurological exam: Present: alert, oriented X3 - Skin Skin exam: Present: warm, dry Results - Labs CBC & BMP: 10/29/16 03:15 11/01/16 06:13 Lab Results: I have reviewed the past 24 hour labs Specialty Discharge - Follow Up or Referrals Follow up with: Ron Mitchell MD [Physician] - 11/25/16 10:40 am
--- NOTE | 2016-11-01 12:00 | Discharge Summary ---
Hospital Course - Hospital Course Hospital Course: Patient is a 71-year-old male admitted for hemopneumothorax associated with multiple left-sided rib fractures after being kicked by a donkey. He was initially admitted to the ICU for monitoring, pain management, and pulmonary consultation was obtained. He was noted to be significantly hyperkalemic upon admission as well with uncontrolled diabetes and hospitalist consultation was obtained for assistance. We appreciate all consultants. Patient's hyperkalemia responded well to prescribed treatment. He also experienced acute kidney injury requiring hemodialysis catheter placement for short-term hemodialysis to which she responded well with return of creatinine to normal and appropriate urine output. He had residual scrotal and penile edema which were improving at the time of discharge. Patient had a chest tube for 7 days which was removed without complication; pain management consultation was obtained and nerve block was performed for assistance in pain management. Post removal x-rays were stable and the patient was asymptomatic. He grew Naima tropicalis in his sputum which was treated with 9 days of Diflucan. He received physical therapy for debility and was ultimately ambulating well and and independently at the time of discharge. H The hemodialysis Catheter was removed prior to discharge. It was recommended he follow-up with his primary care physician for diabetes and blood pressure management. His Lantus was increased to 15 units twice daily with high dose sliding scale as previous. His blood pressure medications were altered with appropriate control at the time of discharge. He was discharged home with per cardiology recommendations for blood pressure medications and follow up with cardiology (anticoagulation to be addressed at that time per cardiology team) and his primary care physician regarding this as well. He was discharged home in good condition with home health services. - Time spent with patient Time with patient DS: Greater than 30 minutes Diagnosis - Discharge Diagnosis (1) Hemopneumothorax on left Status: Acute (2) Acute renal failure Status: Acute (3) Ribs, multiple fractures Status: Acute (4) Prophylactic measure Status: Acute (5) Hyperglycemia Status: Acute (6) Hyperkalemia Status: Acute (7) Pulmonary contusion Status: Acute (8) Diabetes mellitus Status: Chronic Specialty Discharge - Follow Up or Referrals Follow up with: Darion Maxwell MD [Physician] - 11/25/16 Ron Mitchell MD [Physician] - 2 Weeks Discharge Plan - Discharge Data Disposition: Home Health Service Condition at Discharge: Stable Discharge Diet: diabetic diet Activity: increase activity as tolerated, other (Avoid strenuous activity. ) Hygiene: may shower Driving: not until seen by doctor Contact your physician if you experience:: fever over 101, Difficulty voiding, Redness or swelling, Nausea/Vomiting, Shortness of breath, Bleeding, pain uncontrolled by pain medications Wound / Dressing Care Instructions: Keep chest tube wound clean, dry and covered. Do not soak or submerge wound. Leave dressing from hemodialysis catheter in place for 24 hrs. - Discharge Medications New Ascorbic Acid Tab [Vitamin C Tab] 1,000 mg PO BID tablet hydrALAZINE TAB [Apresoline Tab] 50 mg PO BID #60 tablet HYDROcodone/ACETAMIN 7.5-325 [[place] 7.5-325] 2 tablet PO Q4H PRN #50 tablet PRN Reason: Pain Moderate To Severe (4-10) Carvedilol [Coreg] 12.5 mg PO BID #60 tablet Continue Insulin Aspart [NovoLOG] See Protocol SQ BID PRN PRN Reason: Glucose Management Glimepiride 2 mg PO BID Escitalopram [Lexapro] 20 mg PO BEDTIME Atorvastatin [Lipitor] 20 mg PO DAILY Aspirin 81 mg PO DAILY Changed Insulin Glargine [Lantus] 15 units SUBCUT BID #10 Discontinued Spironolactone [Spironolactone] 25 mg PO DAILY Lisinopril [Lisinopril] 10 mg PO BID Carvedilol [Carvedilol] 6.25 mg PO BID - Follow Up or Referral Follow Up: Darion Maxwell MD [Physician] - 11/25/16 Ron Mitchell MD [Physician] - 2 Weeks - Forms/Instructions Instructions: How to Take a Blood Pressure (DC), Meal Planning with Diabetes Exchanges (DC), Carvedilol (By mouth), Hydralazine (By mouth) Additional Discharge Instructions: Follow up PCP 7-10 days for f/u diabetes and hypertension for hospital follow up. Take blood pressure daily and take blood glucose log to PCP appointment. Exam - Constitutional Vitals: Period Temp Pulse Resp BP Sys/Branch Pulse Ox Last 24 Hr 97.7 F-99.3 F 69-83 16-20 125-158/70-87 90-99 General appearance: no acute distress - Head Head exam: Present: atraumatic - Neck Neck exam: Present: other (HD catheter in place - removed. No bleeding at the time of my departure. ) - Respiratory Respiratory exam: Present: other (lungs clear; slightly diminished on left) - Cardiovascular Cardiovascular exam: Present: regular rate and rhythm - GI/Abdominal GI/Abdominal exam: Present: normal bowel sounds, soft. Absent: distended, tenderness - Neurological Exam Neurological exam: Present: alert, oriented X3 - Psychiatric Psychiatric exam: Present: normal affect, normal mood - Skin Skin exam: Present: normal color Discharge Results Labs on day of discharge: Labs from last 24 hours 11/01/16 11/01/16 11/01/16 11:02 06:47 06:13 Sodium 138 Potassium 4.6 Chloride 101 Carbon Dioxide 34 H Anion Gap 7.6 BUN 22 H Creatinine 1.20 GFR Calculation 71 BUN/Creatinine Ratio 18.00 Glucose 180 H POC Glucose 262 H 235 H Calculated Osmolality 282.7 Calcium 8.6 10/31/16 10/31/16 19:45 16:02 Sodium Potassium Chloride Carbon Dioxide Anion Gap BUN Creatinine GFR Calculation BUN/Creatinine Ratio Glucose POC Glucose 339 H 282 H Calculated Osmolality Calcium - Impressions Sputum culture: naima tropicalis - Imaging and Cardiology Procedure: Chest x-ray: image reviewed by me, report reviewed by me (serial images reviewed ), CT Abdomen and Pelvis: image reviewed by me, report reviewed by me, CT - chest: image reviewed by me, report reviewed by me, X-ray: report reviewed by me (multiple msk xr; no findings) DS: Provider Date of admission: 10/20/16 23:19 Primary care physician: Antonia Perez NP Attending physician on admission: Darion Maxwell MD Consults: 10/20/16 23:50 Consult to Case Mgmt/Social Srvs [CONS] Routine Reason for Case Mgmt/Social Srvs: Rehab Home Health Consult Comment: Set up HH, SN, and an Aid to assist w/[place]. Consult to Diabetes Center, Educator [CONS] Routine Reason for Parts Department Manager: Diabetes Education Consult to Physician [CONS] Routine Comment: Pneumothorax Consulting Provider: [facility] Pulmonology Consulting Provider Notified: Yes When should Consulting Provider be notified: In am Consult to Specialist Group: Pulmonology Person Notified: YANELIS Date Notified: 10/21/16 Time Notified: 09:00 Consult Notification Comment: DR. THI WILL SEE PT THIS AM 10/21/16 07:19 Consult to Physician [CONS] Routine Comment: manage hyperkalemia Consulting Provider: Usama Wade Consulting Provider Notified: Yes Consult to Specialist Group: Hospitalist When should Consulting Provider be notified: Now Person Notified: MARLEE Date Notified: 10/21/16 Time Notified: 09:00 10/21/16 09:22 Consult to Wound Care - Kila [CONS] Routine Reason for Wound Care: Wound Care Management Consult Comment: bilateral ankle wounds and acute wounds 10/22/16 06:26 Consult to Physician [CONS] Routine Comment: new onset afib. recent chest trauma. CAD Consulting Provider: Cardiology - [facility] Consulting Provider Notified: Yes When should Consulting Provider be notified: In am Person Notified: Dr Sidhu Date Notified: 10/22/16 Time Notified: 07:30 Consult Notification Comment: 0740 Dr Sidhu at bedside 10/23/16 07:26 Consult to Physician [CONS] Routine Comment: very decreased urine output, CR 3.6, Acidotic Consulting Provider: Consult to Specialist Group: Nephrology When should Consulting Provider be notified: Now 10/24/16 08:26 Consult to Physician [CONS] Routine Comment: intercostal nerve block Consulting Provider: Phillip Merino Consulting Provider Notified: Yes When should Consulting Provider be notified: Now Consult to Specialist Group: Pain Management When should Consulting Provider be notified: Now Person Notified: RYANNE Date Notified: 10/24/16 Time Notified: 08:45 10/24/16 10:52 Consult to Physician [CONS] Routine Comment: CHF Consulting Provider: Cardiology - [facility] 10/26/16 13:36 Consult to Physical Therapy [CONS] Routine Reason for Physical Therapy: Evaluate and Treat 10/27/16 08:52 Consult to Pharmacy [CONS] Routine Reason for Pharmacy Consult: Adjust Meds Renal Funct Comment: starting diflucan today 10/27/16 11:11 Consult to Case Mgmt/Social Srvs [CONS] Routine Reason for Case Mgmt/Social Srvs: LTAC 10/31/16 11:51 Consult to Case Mgmt/Social Srvs [CONS] Routine Reason for Case Mgmt/Social Srvs: Rehab Consult Comment: rehab vs swingbed; likely not require LTAC Discharging clinician: Teri Jensen PA-C
--- NOTE | 2016-11-01 18:28 | Cardiology Progress Note ---
Fei Parisi April RN, am scribing for, and in the presence of, Varghese Cagle MD 18:27. Assessment and Plan (1) New onset atrial fibrillation Status: Resolved Assessment and plan: 11/01/16: No chest pain or shortness of breath Had transient atrial fib. For now, since she is post chest tube and recent trauma would not start anticoagulation. When Dr. Mitchell sees him back in 2 weeks he can decide about starting it or not. Considering risk and benefits. Because of renal failure, lisinopril and spironolactone were held. His blood pressure is controlled on the Coreg and hydralazine for now. We will send him home on these meds. Dr. Mitchell see him in 2 weeks --he could rethink about restarting these medications and watching his renal function We will discharge today with home health and home physical therapy. (2) Acute kidney injury Status: Acute (3) Anemia Status: Acute (4) Hypomagnesemia Status: Resolved (5) Pulmonary contusion Status: Acute Qualifiers: Encounter type: initial encounter Laterality: left Qualified Code(s): S27.321A - Contusion of lung, unilateral, initial encounter (6) Ribs, multiple fractures Problem details: Rib fractures left T2 through T5 Status: Acute Qualifiers: Encounter type: initial encounter Fracture type: closed Laterality: left Qualified Code(s): S22.42XA - Multiple fractures of ribs, left side, initial encounter for closed fracture (7) Coronary artery disease Status: Chronic Qualifiers: Coronary Disease-Associated Artery/Lesion type: robinson artery Stebbins vs. transplanted heart: robinson heart Associated angina: without angina Qualified Code(s): I25.10 - Atherosclerotic heart disease of robinson coronary artery without angina pectoris (8) Dyslipidemia Status: Chronic (9) History of hypertension Status: Chronic (10) History of insulin dependent diabetes mellitus Status: Chronic Cardiology - PN: Subj Interval history: ROLL WRAPPER: Dr. Mitchell SUMMARY:Mr. Morse, 71-year-old male patient with known coronary artery disease , routinely followed by Dr. Mitchell. Patient's cardiac risk factors include: Known CAD (history of CABG), diabetes, dyslipidemia, hypertension and advanced age. No previous history of cardiomyopathy or atrial fibrillation. Patient had CABG [address] Wise. Patient presented to [facility] October 20, 2016 after being kicked by a donkey in his left side twice. He came to the emergency room was found to have a hemothorax. Chest tube was placed. Was admitted service of Dr. Grimes for surgery. Oct 21 the patient developed A. fib and was placed on Cardizem infusion. Patient has since converted back to normal sinus rhythm. Cardiology was consulted to further evaluate. Echocardiogram this admission revealed preserved LV systolic function, ejection fraction 55%. No regional wall motion abnormality. No pericardial effusion. Moderate TR. Because of his anemia, anticoagulation has not been started. He does have a chads score of greater than 2 which puts him at high risk for stroke in the long-term. He started hemodialysis October 25. Because of acute renal failure, he did require some short-term dialysis while he was here. November 01, 2016: Mr. Morse is seen on 3 E. He denies any specific chest pain, shortness of breath, or palpitations. He does continue to have generalized soreness. His heart rhythm sounds regular to auscultation. Oxygen is in use via nasal cannula. He has a dressing to his left chest from his chest tube, that dressing is dry and intact. His Bonilla was removed yesterday and he reports voiding without difficulty. Physical therapy has been working with him. He is planning to go home today with home health providing physical therapy at home. They are planning to remove his dialysis catheter prior to discharge as they do not expect him to need further dialysis. Because of his renal failure, spironolactone and lisinopril were discontinued. He was started on carvedilol to 12.5 mg twice daily and hydralazine 50 mg twice daily, he will continue these at discharge. We will schedule follow-up with Dr. Mitchell in 2 weeks. He can decide at that time if he wishes to anticoagulate or not. Exam (Progress Note) - Constitutional Vitals: Period Temp Pulse Resp BP Sys/Branch Pulse Ox Last 24 Hr 97.7 F-99.3 F 69-83 16-20 125-158/67-87 90-99 Exam: General: Appears well with no apparent distress. Pleasant and cooperative. Appears comfortable. HEENT: PERRL, normocephalic, atraumatic. Mucous membranes moist. No jaundice noted. Conjunctiva moist and clear, sclerae anicteric Neck: No JVD/HJR, no thyromegaly or lymphadenopathy noted. No carotid bruit appreciated. Line noted to right neck. Cardiac: Regular rate and rhythm. Lungs: Decreased lung sounds on left. Poor inspiratory effort due to left rib fractures. Chest wall: Dressing with drainage noted to left chest Abdomen: Soft, bowel sounds normoactive. Nontender and nondistended. No abdominal bruit or thrill noted. No masses noted. Extremities: No clubbing, cyanosis noted. No edema noted. Upper extremity pulses 2+. Lower extremity pulses 2+. Capillary refill less than 3 seconds. Skin: No unusual lesions or rashes. No skin breakdown appreciated. Neuro: Awake, alert and oriented 3. Moves all extremities well without hemiparesis or paralysis. No essential tremor is appreciated. Result/EKG - Labs CBC & BMP: 10/29/16 03:15 11/01/16 06:13 Lab Results: I have reviewed the past 24 hour labs Labs: Laboratory Results - last 24 hr 10/31/16 10/31/16 10/31/16 10:48 16:02 19:45 Sodium Potassium Chloride Carbon Dioxide Anion Gap BUN Creatinine GFR Calculation BUN/Creatinine Ratio Glucose POC Glucose 160 H 282 H 339 H Calculated Osmolality Calcium 11/01/16 11/01/16 06:13 06:47 Sodium 138 Potassium 4.6 Chloride 101 Carbon Dioxide 34 H Anion Gap 7.6 BUN 22 H Creatinine 1.20 GFR Calculation 71 BUN/Creatinine Ratio 18.00 Glucose 180 H POC Glucose 235 H Calculated Osmolality 282.7 Calcium 8.6 - Diagnostic Findings Procedure: Chest x-ray: report reviewed by me Specialty Discharge - Follow Up or Referrals Follow up with: Darion Maxwell MD [Physician] - 11/15/16 9:00 am Ron Mitchell MD [Physician] - 11/25/16 10:40 am I, Varghese Cagle MD, personally performed the services described in this documentation, ascribed by Amanda Enamorado RN in my presence, and it is both accurate and complete [id number] .
[2016-11-06 10:50] VITALS: BP 141/70
--- NOTE | 2016-11-07 16:17 | Physician Query Form ---
CLICK EDIT DOCUMENT TO SELECT QUERY ANSWER --> OK --> SIGN Estefanía Hernadez RN Clinical Fiscal Services Director W) [phone] (f) [phone] [email or web address] PROVIDERS: Make your selection(s) from the choices in EACH section by typing an "x" and enter comments in the comment section. Please use your independent medical judgment in providing your response. This request does not imply that any particular answer is desired or expected. CLINICAL INDICATORS: (Providers should not edit this section) Based on documentation of " I suspect that we are dealing with an element of congestive heart failure" BNP of 1148. Monitored with serial lab checks. Echo Shows EF of 55%. Please provide further specificity regarding CHF. ACUITY: (x) Acute ( ) Chronic ( ) Acute on Chronic ( ) Clinically unable to determine TYPE: ( ) Systolic (HFrEF - heart failure with reduced systolic function/EF) ( x) Diastolic (HFpEF - heart failure with preserved systolic function/EF) ( ) Combined Systolic/Diastolic ( ) Other, please specify: ( ) Clinically unable to determine ( ) Past Medical History of Systolic CHF ( ) Past Medical History of Diastolic CHF ( ) Clinically unable to determine COMMENTS: PLEASE ALSO DOCUMENT RESPONSE IN PROGRESS NOTES AND/OR DISCHARGE SUMMARY Use of terms such as suspected, likely, or probable (associated with a specific diagnosis that is being evaluated, monitored, or treated as if it exists) are acceptable and can be restated in the discharge summary if not ruled out. MTDD
--- NOTE | 2016-11-07 16:24 | Physician Query Form ---
CLICK EDIT DOCUMENT TO SELECT QUERY ANSWER --> OK --> SIGN Estefanía Hernadez RN Clinical Tab Builder W) [phone] (f) [phone] [email or web address] PROVIDERS: Make your selection(s) from the choices in EACH section by typing an "x" and enter comments in the comment section. Please use your independent medical judgment in providing your response. This request does not imply that any particular answer is desired or expected. CLINICAL INDICATORS: (Providers should not edit this section) Based on documentation of "Acute renal failure" "Patient appears to have acute tubular necrosis and will probably require short-term dialysis" Creatinine from 2.3 to 5.0. GFR from 29 to 14. Was treated with dialysis in hospital. Clarify which of the following most accurately represents the patient's renal status: (x ) Acute kidney injury (non-traumatic) ( ) Acute renal failure ( ) Acute renal failure with underlying Chronic Kidney Disease (CKD) - please provide stage below ( ) Acute renal failure with necrosis ( ) tubular ( ) medullary ( ) cortical ( ) CKD - please provide stage below ( ) End Stage Renal Disease ( ) Acute interstitial nephritis ( ) Hepatorenal syndrome ( ) Other, please specify: ( ) Clinically unable to determine Chronic Kidney Disease Stages Source: National Kidney [employer] Foundation ( ) Stage I (eGFR > or = 90) ( ) Stage II (eGFR 60 - 89) ( ) Stage III (eGFR 30 - 59) ( ) Stage IV (eGFR 15 - 29) ( ) Stage V (eGFR < 15 or dialysis) COMMENTS: PLEASE ALSO DOCUMENT RESPONSE IN PROGRESS NOTES AND/OR DISCHARGE SUMMARY Use of terms such as suspected, likely, or probable (associated with a specific diagnosis that is being evaluated, monitored, or treated as if it exists) are acceptable and can be restated in the discharge summary if not ruled out. MTDD
== END 2016-11-01 15:17 | disposition home health service (06) | DRG 199 ==
LOC: N.ED 19:22 → N.EDINP 23:19 → N.ICU 23:46 → N.3E 10-26 13:35
PROVIDERS: ADMIT Surgery; ATTEND Surgery

== ENCOUNTER 2019-09-06 14:24 | Inpatient (IN) ==
[2019-09-06] MEDS ORDERED: FUROSEMIDE 40 MG/4 ML VIAL IV STA (14:45)
[2019-09-06] MEDS ORDERED: methylPREDNISolone SOD SUC 125 MG/2 ML VIAL IV STA (14:45)
[2019-09-06] MEDS ORDERED: ONDANSETRON 4 MG/2 ML VIAL IV STA (14:45)
[2019-09-06] MEDS ORDERED: VANCOMYCIN INJ 1,000 MG in SODIUM CHLORIDE 0.9% 250 ML IV STA (14:45)
[2019-09-06] MEDS ORDERED: AZITHROMYCIN INJ 500 MG in SODIUM CHLORIDE 0.9% 250 ML IV STA (14:45)
[2019-09-06] MEDS ORDERED: VANCOMYCIN 1,000 MG VIAL ONE (14:56)
[2019-09-06 15:05] LABS: Basophils % 0.3 % (0.0-0.8); Eosinophils % 0.2 % (0.00-10.9); Hematocrit 34.7 VOL% (42.0-52.0); Immature Granulocytes % 0.4 %; Immature Granulocytes Absolute 0.05 #; Lymphocytes # 0.5 10*3/uL (1.4-4.0); Lymphocytes % 4.3 % (21.2-54.2); Mean Corpuscular HGB Conc 31.7 GM/DL (32-36); Mean Corpuscular Volume 95.6 FL (87-102); Neutrophils % 90.8 % (38.7-73.9); Platelet Count 223 T/CUMM (130-400); Red Blood Count 3.63 MC/CUMM (3.8-5.5); Red Cell Distribution Width 14.5 % (9.3-17.3); White Blood Count 11.7 T/CUMM (4-12)
[2019-09-06 15:15] LABS: INR 1.2; PT Patient Result 12.6 SECS (9.8-11.9); Partial Thromboplastin Time 26.9 SECS (23.9-33.8)
[2019-09-06 15:30] LABS: Band Neutrophils 8 % (0-10); Lymphocytes 4 % (20-55); Platelet Estimate Normal; Segmented Neutrophils 86 % (50-85); Total Cells Counted 100
[2019-09-06 15:32] LABS: Alanine Aminotransferase 17 U/L (16-61); Albumin 3.3 G/DL (3.4-5.0); Alkaline Phosphatase 203 U/L (45-117); Aspartate Amino Transferase 23 U/L (0-37); Blood Urea Nitrogen 31 MG/DL (7-18); Calcium 8.9 MG/DL (8.5-10.1); Estimated Glom Filtration Rate 40 ML/MIN; Ferritin 113.7 ng/ml (26-388); Glucose 289 MG/DL (74-106); Osmolality,Calculated 287.1 MOS/KG (273-304); Troponin I < 0.015 NG/ML (0.00-0.045)
[2019-09-06] MEDS ORDERED: DEXTROSE 50% 25 GM/50 ML VIAL IV PRN ×2 (15:49)
[2019-09-06] MEDS ORDERED: SIMETHICONE CHEW 125 MG TABLET PO PRN (15:49)
[2019-09-06] MEDS ORDERED: LACTULOSE 20 GM/30 ML UDCUP PO PRN (15:49)
[2019-09-06] MEDS ORDERED: ACETAMINOPHEN 325 MG TABLET PO PRN (15:49)
[2019-09-06] MEDS ORDERED: NICOTINE 21 MG/24 HR PATCH TRANSDERM PRN (15:49)
[2019-09-06] MEDS ORDERED: guaiFENesin/DM ER 600-30 MG TABLET PO PRN (15:49)
[2019-09-06] MEDS ORDERED: traZODone 50 MG TABLET PO PRN (15:49)
[2019-09-06] MEDS ORDERED: GLUCAGON 1 MG VIAL IM PRN (15:49)
[2019-09-06] MEDS ORDERED: BISACODYL 5 MG TABLET PO PRN (15:49)
[2019-09-06] MEDS ORDERED: diphenhydrAMINE CAP 25 MG CAPSULE PO PRN (15:49)
[2019-09-06] MEDS ORDERED: ALUMINUM/MAGNES/SIMETH MAX STR 30 ML UDCUP PO PRN (15:49)
[2019-09-06] MEDS ORDERED: DOCUSATE SODIUM 100 MG CAPSULE PO PRN (15:49)
[2019-09-06] MEDS ORDERED: hydrALAZINE 20 MG/1 ML VIAL IV PRN (15:49)
[2019-09-06] MEDS ORDERED: SODIUM CHLORIDE 0.9% 2,250 ML IV ONE (15:58)
[2019-09-06 16:19] LABS: Apearance,Urine CLEAR (Clear); Bilirubin,Urine Negative (Negative); Blood, Urine Negative (Negative); Glucose,Urine (UA) Negative (Negative); Hyaline Casts,Urine 1 /LPF (0-3); Ketones,Urine Negative (Negative); Nitrite,Urine Negative (Negative); Protein,Urine Negative; RBC,Urine 3 /HPF (0-4); Urine Color Yellow (Yellow); Urine Specific Gravity 1.009 (1.001-1.035); Urine Urobilinogen < 2.0 EU/DL (0.2-1.0); WBC,Urine 1 /HPF (0-6)
[2019-09-06 16:24] LABS: Barbiturates Screen,Urine Negative (Negative); Benzodiazepines Screen,Urine Negative (Negative); Cannabinoid Screen,Urine Negative (Negative); Opiate Screen,Urine Negative (Negative); Phencyclidine Screen,Urine Negative (Negative)
[2019-09-06 16:33] LABS: ABG Base Excess 0.6 MMOL/L (-2.5-2.5); ABG HCO3 24.9 MMOL/L (20-26); ABG Oxygen Saturation 94.9 % (95-100); ABG PCO2 34.9 MM HG (35-48); ABG PO2 74.3 MM HG (80-95); ABG TCO2 22.2 MMOL/L (23-27); Allen Test Positive
[2019-09-06] MEDS ORDERED: DOPamine 800 MG/250 ML PREMIX IV PRN (16:41)
[2019-09-06] MEDS ORDERED: NOREPINEPHRINE 8 MG in SODIUM CHLORIDE 0.9% 242 ML IV PRN (16:41)
[2019-09-06] MEDS ORDERED: ALBUTEROL 2.5 MG/3 ML NEB RESP TX PRN (16:41)
[2019-09-06] MEDS ORDERED: PHENYLEPHRINE DRIP 40 MG/250 ML PREMIX IV PRN (16:41)
[2019-09-06] MEDS: HEPARIN 5,000 UNIT/1 ML VIAL SUBCUT SCH (17:31)
[2019-09-06] MEDS: PIPERACILLIN/TAZOBACTAM 3,375 MG in SODIUM CHLORIDE 0.9% 100 ML IV SCH (17:31)
[2019-09-06] MEDS ORDERED: LEVOFLOXACIN INJ 500 MG in PREMIX 1 EACH IV ONE (18:00)
[2019-09-06] MEDS: INSULIN REGULAR 100 UNIT/ML SUBCUT SCH ×2 (18:22→22:01)
[2019-09-06] MEDS ORDERED: PNEUMOCOCCAL VACCINE (13 VALENT) 0.5 ML SYRINGE IM ONE (18:42)
[2019-09-06] MEDS: ASCORBIC ACID 500 MG TABLET PO SCH (20:50)
[2019-09-06] MEDS: ESCITALOPRAM 10 MG TABLET PO SCH (20:50)
[2019-09-06] MEDS: INSULIN GLARGINE 100 UNIT/ML SUBCUT SCH (20:50)
[2019-09-06] MEDS ORDERED: LOSARTAN 25 MG TABLET PO SCH (21:00)
[2019-09-06] MEDS ORDERED: carvediloL 25 MG TABLET PO SCH (21:00)
[2019-09-06] MEDS ORDERED: GLIMEPIRIDE 2 MG TABLET PO SCH (21:00)
[2019-09-06] MEDS: ZALEPLON 5 MG CAPSULE PO PRN (23:29)
[2019-09-07] MEDS: PIPERACILLIN/TAZOBACTAM 3,375 MG in SODIUM CHLORIDE 0.9% 100 ML IV SCH ×3 (01:56→15:51)
[2019-09-07] MEDS: HEPARIN 5,000 UNIT/1 ML VIAL SUBCUT SCH ×3 (01:59→15:51)
[2019-09-07 05:02] LABS: Basophils % 0.1 % (0.0-0.8); Hematocrit 30.1 VOL% (42.0-52.0); Hemoglobin 9.6 GM/DL (14.0-18.0); Immature Granulocytes % 0.6 %; Immature Granulocytes Absolute 0.05 #; Lymphocytes # 0.4 10*3/uL (1.4-4.0); Lymphocytes % 4.3 % (21.2-54.2); Mean Corpuscular HGB Conc 31.9 GM/DL (32-36); Mean Corpuscular Volume 94.7 FL (87-102); Mean Platelet Volume 9.8 FL (9.6-12.0); Monocytes % 1.7 % (1.7-12.7); Neutrophils % 93.3 % (38.7-73.9); Platelet Count 160 T/CUMM (130-400); Red Blood Count 3.18 MC/CUMM (3.8-5.5); Red Cell Distribution Width 14.6 % (9.3-17.3); White Blood Count 8.9 T/CUMM (4-12)
[2019-09-07 05:24] LABS: INR 1.2; PT Patient Result 13.1 SECS (9.8-11.9)
[2019-09-07 05:36] LABS: ABG Base Excess 1.7 MMOL/L (-2.5-2.5); ABG HCO3 25.9 MMOL/L (20-26); ABG Oxygen Saturation 94.6 % (95-100); ABG PH 7.423 (7.35-7.45); ABG PO2 72.5 MM HG (80-95); ABG TCO2 23.9 MMOL/L (23-27); Allen Test Positive
[2019-09-07 05:37] LABS: Bilirubin,Total 0.8 MG/DL (0.2-1.0); Calcium 8.9 MG/DL (8.5-10.1); Ferritin 132.9 ng/ml (26-388); Osmolality,Calculated 288.2 MOS/KG (273-304); Risk Ratio 1.46; Thyroid Stimulating Hormone 0.941 uIU/ml (0.358-3.74); Total Protein 6.5 G/DL (6.4-8.3); VLDL CHOLESTEROL 4.6 MG/DL
[2019-09-07 05:40] LABS: Band Neutrophils 5 % (0-10); Hypochromasia 1+; Lymphocytes 3 % (20-55); Segmented Neutrophils 89 % (50-85); Total Cells Counted 100
[2019-09-07 05:41] LABS: Microcytosis Slight; Ovalocytes Slight
[2019-09-07] MEDS: INSULIN REGULAR 100 UNIT/ML SUBCUT SCH ×5 (06:39→23:18)
[2019-09-07] MEDS: INSULIN GLARGINE 100 UNIT/ML SUBCUT SCH ×3 (08:42→23:17)
[2019-09-07] MEDS: ASPIRIN CHEW 81 MG TABLET PO SCH (08:43)
[2019-09-07] MEDS: PANTOPRAZOLE 40 MG TABLET PO SCH (08:43)
[2019-09-07] MEDS: amLODIPine 2.5 MG TABLET PO SCH (08:43)
[2019-09-07] MEDS: ATORVASTATIN 20 MG TABLET PO SCH (08:43)
[2019-09-07] MEDS: ASCORBIC ACID 500 MG TABLET PO SCH ×2 (08:43→20:31)
[2019-09-07 08:51] LABS: Sedimentation Rate-Westergren 35 MM/HR (0-20)
[2019-09-07] MEDS ORDERED: FUROSEMIDE 40 MG TABLET PO SCH (09:00)
[2019-09-07] MEDS: FUROSEMIDE 40 MG TABLET PO SCH (13:02)
[2019-09-07] MEDS ORDERED: LEVOFLOXACIN INJ 250 MG in PREMIX 1 EACH IV SCH (18:00)
[2019-09-07] MEDS: ESCITALOPRAM 10 MG TABLET PO SCH (20:31)
[2019-09-07] MEDS: ZALEPLON 5 MG CAPSULE PO PRN (23:09)
[2019-09-08] MEDS: PIPERACILLIN/TAZOBACTAM 3,375 MG in SODIUM CHLORIDE 0.9% 100 ML IV SCH ×3 (00:50→17:17)
[2019-09-08] MEDS: HEPARIN 5,000 UNIT/1 ML VIAL SUBCUT SCH ×4 (00:51→23:57)
[2019-09-08 04:07] LABS: Basophils % 0.1 % (0.0-0.8); Hematocrit 29.2 VOL% (42.0-52.0); Hemoglobin 9.3 GM/DL (14.0-18.0); Immature Granulocytes % 0.7 %; Immature Granulocytes Absolute 0.06 #; Lymphocytes # 0.6 10*3/uL (1.4-4.0); Lymphocytes % 6.8 % (21.2-54.2); Mean Corpuscular HGB Conc 31.8 GM/DL (32-36); Mean Corpuscular Volume 95.4 FL (87-102); Mean Platelet Volume 10.1 FL (9.6-12.0); Monocytes % 6.5 % (1.7-12.7); Neutrophils % 85.9 % (38.7-73.9); Platelet Count 187 T/CUMM (130-400); Red Blood Count 3.06 MC/CUMM (3.8-5.5); Red Cell Distribution Width 14.7 % (9.3-17.3); White Blood Count 8.8 T/CUMM (4-12)
[2019-09-08 04:10] LABS: INR 1.1; PT Patient Result 11.9 SECS (9.8-11.9)
[2019-09-08 04:19] LABS: Albumin 2.7 G/DL (3.4-5.0); Bilirubin,Total 0.8 MG/DL (0.2-1.0); Calcium 8.7 MG/DL (8.5-10.1); Ferritin 114.9 ng/ml (26-388); Osmolality,Calculated 282.2 MOS/KG (273-304); Total Protein 6.1 G/DL (6.4-8.3)
[2019-09-08 06:14] LABS: Sedimentation Rate-Westergren 36 MM/HR (0-20)
[2019-09-08] MEDS: amLODIPine 2.5 MG TABLET PO SCH (08:16)
[2019-09-08] MEDS: FUROSEMIDE 40 MG TABLET PO SCH (08:16)
[2019-09-08] MEDS: PANTOPRAZOLE 40 MG TABLET PO SCH (08:16)
[2019-09-08] MEDS: INSULIN GLARGINE 100 UNIT/ML SUBCUT SCH ×2 (08:16→20:45)
[2019-09-08] MEDS: INSULIN REGULAR 100 UNIT/ML SUBCUT SCH ×4 (08:16→20:46)
[2019-09-08] MEDS: ATORVASTATIN 20 MG TABLET PO SCH (08:16)
[2019-09-08] MEDS: ASPIRIN CHEW 81 MG TABLET PO SCH (08:16)
[2019-09-08] MEDS: ASCORBIC ACID 500 MG TABLET PO SCH ×2 (08:17→20:46)
[2019-09-08] MEDS: SODIUM CHLORIDE 0.9% 1,000 ML IV SCH ×2 (13:02→20:47)
[2019-09-08] MEDS ORDERED: LEVOFLOXACIN INJ 250 MG in PREMIX 1 EACH IV SCH (18:00)
[2019-09-08] MEDS: ZALEPLON 5 MG CAPSULE PO PRN (20:45)
[2019-09-08] MEDS: ESCITALOPRAM 10 MG TABLET PO SCH (20:45)
[2019-09-09] MEDS: INSULIN REGULAR 100 UNIT/ML SUBCUT SCH ×3 (01:24→13:55)
[2019-09-09] MEDS: SODIUM CHLORIDE 0.9% 1,000 ML IV SCH (01:24)
[2019-09-09] MEDS: PIPERACILLIN/TAZOBACTAM 3,375 MG in SODIUM CHLORIDE 0.9% 100 ML IV SCH ×2 (01:32→08:55)
[2019-09-09 07:08] LABS: Basophils % 0.2 % (0.0-0.8); Eosinophils # 0.1 10*3/uL (0.0-0.87); Eosinophils % 1.9 % (0.00-10.9); Hemoglobin 10.1 GM/DL (14.0-18.0); Immature Granulocytes % 0.7 %; Immature Granulocytes Absolute 0.04 #; Lymphocytes # 0.7 10*3/uL (1.4-4.0); Mean Corpuscular HGB Conc 31.6 GM/DL (32-36); Mean Corpuscular Volume 96.7 FL (87-102); Neutrophils % 76.2 % (38.7-73.9); Platelet Count 210 T/CUMM (130-400); Red Blood Count 3.31 MC/CUMM (3.8-5.5); Red Cell Distribution Width 14.8 % (9.3-17.3); White Blood Count 5.4 T/CUMM (4-12)
[2019-09-09 07:19] LABS: INR 1.1; PT Patient Result 11.6 SECS (9.8-11.9)
[2019-09-09 07:36] LABS: SARS-CoV-2 Total Ab Interp NonReactive
[2019-09-09 07:42] LABS: Calcium 8.9 MG/DL (8.5-10.1); Osmolality,Calculated 283.8 MOS/KG (273-304)
[2019-09-09 07:43] LABS: Alanine Aminotransferase 19 U/L (16-61); Albumin 2.9 G/DL (3.4-5.0); Alkaline Phosphatase 139 U/L (45-117); Aspartate Amino Transferase 19 U/L (0-37); Blood Urea Nitrogen 49 MG/DL (7-18); Calcium 8.8 MG/DL (8.5-10.1); Estimated Glom Filtration Rate 34 ML/MIN; Ferritin 91.4 ng/ml (26-388); Glucose 79 MG/DL (74-106); Total Protein 6.6 G/DL (6.4-8.3)
[2019-09-09 08:19] LABS: Elliptocytes Few; Platelet Estimate Normal
[2019-09-09 08:20] LABS: Anisocytosis Slight; Macrocytosis Slight
[2019-09-09 08:29] LABS: Sedimentation Rate-Westergren 46 MM/HR (0-20)
[2019-09-09] MEDS: INSULIN GLARGINE 100 UNIT/ML SUBCUT SCH (08:35)
[2019-09-09] MEDS: ASCORBIC ACID 500 MG TABLET PO SCH (08:45)
[2019-09-09] MEDS: ASPIRIN CHEW 81 MG TABLET PO SCH (08:46)
[2019-09-09] MEDS: ATORVASTATIN 20 MG TABLET PO SCH (08:49)
[2019-09-09] MEDS: amLODIPine 2.5 MG TABLET PO SCH (08:49)
[2019-09-09] MEDS: PANTOPRAZOLE 40 MG TABLET PO SCH (08:50)
[2019-09-09] MEDS: HEPARIN 5,000 UNIT/1 ML VIAL SUBCUT SCH (08:56)
[2019-09-09] MEDS ORDERED: FUROSEMIDE 20 MG TABLET PO SCH (09:00)
[2019-09-09 12:50] VITALS: BP 96/78
[2019-09-09] MEDS ORDERED: LEVOFLOXACIN INJ 250 MG in PREMIX 1 EACH IV SCH (18:00)
== END 2019-09-09 15:23 | disposition home or self-care (01) | DRG 291 ==
LOC: N.ED 14:24 → N.EDINP 15:49 → SUATTDRO 15:49 → N.CC 16:57 → N.4E 09-08 14:06
PROVIDERS: ADMIT Hospitalist; ATTEND Family Medicine

== ENCOUNTER 2020-06-28 17:12 | Inpatient (IN) ==
[2020-06-28] MEDS ORDERED: FUROSEMIDE 40 MG/4 ML VIAL IV STA (17:55)
[2020-06-28 18:13] LABS: Basophils % 0.7 % (0.0-0.8); Eosinophils # 0.3 10*3/uL (0.0-0.87); Eosinophils % 5.4 % (0.00-10.9); Hematocrit 33.3 VOL% (42.0-52.0); Hemoglobin 10.7 GM/DL (14.0-18.0); Immature Granulocytes % 0.2 %; Immature Granulocytes Absolute 0.01 #; Lymphocytes # 0.5 10*3/uL (1.4-4.0); Lymphocytes % 8.2 % (21.2-54.2); Mean Corpuscular HGB Conc 32.1 GM/DL (32-36); Mean Corpuscular Volume 97.1 FL (87-102); Mean Platelet Volume 10.5 FL (9.6-12.0); Monocytes % 8.4 % (1.7-12.7); Neutrophils % 77.1 % (38.7-73.9); Platelet Count 154 T/CUMM (130-400); Red Blood Count 3.43 MC/CUMM (3.8-5.5); Red Cell Distribution Width 15.4 % (9.3-17.3); White Blood Count 5.6 T/CUMM (4-12)
[2020-06-28 18:31] LABS: Albumin 2.8 G/DL (3.4-5.0); Bilirubin,Total 0.9 MG/DL (0.2-1.0); Calcium 8.8 MG/DL (8.5-10.1); Osmolality,Calculated 288.1 MOS/KG (273-304); Potassium 5.4 MMOL/L (3.5-5.1); Total Protein 6.7 G/DL (6.4-8.2)
[2020-06-28 18:33] LABS: ABG Base Excess 3.9 MMOL/L (-2.5-2.5); ABG HCO3 27.9 MMOL/L (20-26); ABG Oxygen Saturation 97.6 % (95-100); ABG PCO2 41.8 MM HG (35-48); ABG PO2 93.3 MM HG (80-95); ABG TCO2 25.6 MMOL/L (23-27)
[2020-06-28 21:19] LABS: Bacteria,Urine Occasional /HPF (Few); Bilirubin,Urine Negative (Negative); Blood, Urine Negative (Negative); Glucose,Urine (UA) 50 mg/dL (Negative); Hyaline Casts,Urine 4 /LPF (0-3); Ketones,Urine Negative (Negative); Mucus,Urine Occasional /LPF (Occasional); Nitrite,Urine Negative (Negative); Protein,Urine Negative; RBC,Urine 1 /HPF (0-4); Urine Appearance CLEAR (Clear); Urine Color Yellow (Yellow); Urine Specific Gravity 1.008 (1.001-1.035); Urine Urobilinogen < 2.0 EU/DL (0.2-1.0)
[2020-06-28] MEDS ORDERED: DEXTROSE 50% 25 GM/50 ML VIAL IV PRN (23:56)
[2020-06-28] MEDS ORDERED: ACETAMINOPHEN 325 MG TABLET PO PRN (23:56)
[2020-06-28] MEDS ORDERED: GLUCAGON 1 MG VIAL IM PRN (23:56)
[2020-06-28] MEDS ORDERED: DOCUSATE SODIUM 100 MG CAPSULE PO PRN (23:56)
[2020-06-29 05:41] LABS: Basophils % 0.7 % (0.0-0.8); Eosinophils # 0.3 10*3/uL (0.0-0.87); Eosinophils % 6.5 % (0.00-10.9); Hematocrit 32.4 VOL% (42.0-52.0); Hemoglobin 10.3 GM/DL (14.0-18.0); Immature Granulocytes % 0.2 %; Immature Granulocytes Absolute 0.01 #; Lymphocytes # 0.4 10*3/uL (1.4-4.0); Lymphocytes % 8.5 % (21.2-54.2); Mean Corpuscular HGB Conc 31.8 GM/DL (32-36); Mean Corpuscular Volume 97.6 FL (87-102); Mean Platelet Volume 10.9 FL (9.6-12.0); Monocytes % 9.1 % (1.7-12.7); Platelet Count 136 T/CUMM (130-400); Red Blood Count 3.32 MC/CUMM (3.8-5.5); Red Cell Distribution Width 15.4 % (9.3-17.3); White Blood Count 4.6 T/CUMM (4-12)
[2020-06-29 06:06] LABS: Hypochromasia Slight
[2020-06-29 06:07] LABS: Microcytosis Slight
[2020-06-29 06:08] LABS: Calcium 8.9 MG/DL (8.5-10.1); Osmolality,Calculated 290.1 MOS/KG (273-304); Thyroid Stimulating Hormone 4.94 uIU/ml (0.358-3.74)
[2020-06-29 08:25] LABS: INR 1.4; PT Patient Result 14.8 SECS (10.5-12.0)
[2020-06-29] MEDS: TAMSULOSIN 0.4 MG CAPSULE PO SCH ×2 (09:00→21:22)
[2020-06-29] MEDS: ATORVASTATIN 40 MG TABLET PO SCH (09:00)
[2020-06-29] MEDS: APIXABAN 2.5 MG TABLET PO SCH ×2 (09:00→21:22)
[2020-06-29] MEDS: CHOLECALCIFEROL 400 UNIT TABLET PO SCH (09:00)
[2020-06-29] MEDS: ASCORBIC ACID 500 MG TABLET PO SCH (09:00)
[2020-06-29] MEDS ORDERED: carvediloL 25 MG TABLET PO SCH (09:00)
[2020-06-29] MEDS: ASPIRIN CHEW 81 MG TABLET PO SCH (09:00)
[2020-06-29] MEDS: INSULIN ASPART PROTAMINE/ASPART 70/30 100 UNIT/ML SUBCUT SCH ×2 (09:01→21:23)
[2020-06-29] MEDS: AMIODARONE 200 MG TABLET PO SCH ×2 (09:01→21:22)
[2020-06-29] MEDS: FUROSEMIDE 40 MG/4 ML VIAL IV SCH ×2 (09:02→16:48)
[2020-06-29] MEDS: INSULIN LISPRO 100 UNIT/ML SUBCUT SCH ×5 (09:15→21:23)
[2020-06-29] MEDS: AMIODARONE INJ 450 MG in DEXTROSE 5% 241 ML IV SCH (11:35)
[2020-06-29] MEDS ORDERED: SODIUM CHLORIDE 0.9% 1,000 ML IV SCH (13:30)
[2020-06-29] MEDS: carvediloL 12.5 MG TABLET PO SCH (16:47)
[2020-06-29] MEDS: COLLAGENASE OINT 30 GM TUBE TOP SCH (17:13)
[2020-06-29] MEDS: ESCITALOPRAM 10 MG TABLET PO SCH (21:22)
[2020-06-29] MEDS: LOSARTAN 25 MG TABLET PO SCH (21:22)
[2020-06-30 05:28] LABS: Basophils % 0.4 % (0.0-0.8); Eosinophils # 0.3 10*3/uL (0.0-0.87); Eosinophils % 6.6 % (0.00-10.9); Hematocrit 30.1 VOL% (42.0-52.0); Hemoglobin 9.8 GM/DL (14.0-18.0); Immature Granulocytes % 0.4 %; Immature Granulocytes Absolute 0.02 #; Lymphocytes # 0.4 10*3/uL (1.4-4.0); Lymphocytes % 7.4 % (21.2-54.2); Mean Corpuscular HGB Conc 32.6 GM/DL (32-36); Mean Corpuscular Volume 95.9 FL (87-102); Mean Platelet Volume 10.3 FL (9.6-12.0); Monocytes % 8.4 % (1.7-12.7); Neutrophils % 76.8 % (38.7-73.9); Platelet Count 121 T/CUMM (130-400); Red Blood Count 3.14 MC/CUMM (3.8-5.5); Red Cell Distribution Width 15.5 % (9.3-17.3); White Blood Count 4.9 T/CUMM (4-12)
[2020-06-30 05:58] LABS: Calcium 8.7 MG/DL (8.5-10.1); Osmolality,Calculated 281.2 MOS/KG (273-304); Potassium 4.1 MMOL/L (3.5-5.1)
[2020-06-30] MEDS: INSULIN LISPRO 100 UNIT/ML SUBCUT SCH ×4 (07:35→20:51)
[2020-06-30] MEDS: carvediloL 12.5 MG TABLET PO SCH ×2 (07:36→16:16)
[2020-06-30] MEDS: FUROSEMIDE 40 MG/4 ML VIAL IV SCH ×2 (09:16→16:17)
[2020-06-30] MEDS: AMIODARONE INJ 450 MG in DEXTROSE 5% 241 ML IV SCH ×3 (09:17→16:46)
[2020-06-30] MEDS: LOSARTAN 25 MG TABLET PO SCH ×2 (09:42→20:50)
[2020-06-30] MEDS: ASCORBIC ACID 500 MG TABLET PO SCH (09:42)
[2020-06-30] MEDS: CHOLECALCIFEROL 400 UNIT TABLET PO SCH (09:42)
[2020-06-30] MEDS: COLLAGENASE OINT 30 GM TUBE TOP SCH (09:42)
[2020-06-30] MEDS: INSULIN ASPART PROTAMINE/ASPART 70/30 100 UNIT/ML SUBCUT SCH ×2 (09:42→20:50)
[2020-06-30] MEDS: TAMSULOSIN 0.4 MG CAPSULE PO SCH ×2 (09:42→20:50)
[2020-06-30] MEDS: ATORVASTATIN 40 MG TABLET PO SCH (09:42)
[2020-06-30] MEDS: ASPIRIN CHEW 81 MG TABLET PO SCH (09:42)
[2020-06-30] MEDS: AMIODARONE 200 MG TABLET PO SCH ×2 (09:42→20:49)
[2020-06-30] MEDS: APIXABAN 2.5 MG TABLET PO SCH ×2 (09:42→20:50)
[2020-06-30] MEDS ORDERED: propofoL 200 MG/20 ML VIAL IV ONE (12:12)
[2020-06-30] MEDS ORDERED: ETOMIDATE 20 MG/10 ML VIAL IV ONE (12:27)
[2020-06-30] MEDS: ONDANSETRON 4 MG/2 ML VIAL IV PRN (13:32)
[2020-06-30] MEDS: ESCITALOPRAM 10 MG TABLET PO SCH (20:50)
[2020-07-01 04:49] LABS: Basophils # 0.1 10*3/uL (0.0-0.2); Basophils % 0.8 % (0.0-0.8); Eosinophils # 0.5 10*3/uL (0.0-0.87); Eosinophils % 7.7 % (0.00-10.9); Hematocrit 34.5 VOL% (42.0-52.0); Hemoglobin 10.9 GM/DL (14.0-18.0); Immature Granulocytes % 0.5 %; Immature Granulocytes Absolute 0.03 #; Lymphocytes # 0.6 10*3/uL (1.4-4.0); Lymphocytes % 10.1 % (21.2-54.2); Mean Corpuscular HGB Conc 31.6 GM/DL (32-36); Mean Corpuscular Volume 98.6 FL (87-102); Mean Platelet Volume 11.1 FL (9.6-12.0); Monocytes % 12.3 % (1.7-12.7); Neutrophils % 68.6 % (38.7-73.9); Platelet Count 166 T/CUMM (130-400); Red Cell Distribution Width 15.6 % (9.3-17.3); White Blood Count 6.4 T/CUMM (4-12)
[2020-07-01 05:15] LABS: Osmolality,Calculated 279.1 MOS/KG (273-304); Potassium 4.3 MMOL/L (3.5-5.1)
[2020-07-01] MEDS: INSULIN LISPRO 100 UNIT/ML SUBCUT SCH ×4 (08:53→22:32)
[2020-07-01] MEDS: APIXABAN 2.5 MG TABLET PO SCH ×3 (08:54→21:26)
[2020-07-01] MEDS: FUROSEMIDE 40 MG/4 ML VIAL IV SCH ×2 (10:25→17:56)
[2020-07-01] MEDS: ONDANSETRON 4 MG/2 ML VIAL IV PRN (10:37)
[2020-07-01] MEDS: ATORVASTATIN 40 MG TABLET PO SCH (10:46)
[2020-07-01] MEDS: CHOLECALCIFEROL 400 UNIT TABLET PO SCH (10:46)
[2020-07-01] MEDS: carvediloL 12.5 MG TABLET PO SCH ×2 (10:46→17:31)
[2020-07-01] MEDS: ASPIRIN CHEW 81 MG TABLET PO SCH (10:46)
[2020-07-01] MEDS: AMIODARONE 200 MG TABLET PO SCH (10:47)
[2020-07-01] MEDS: LOSARTAN 25 MG TABLET PO SCH (10:47)
[2020-07-01] MEDS: ASCORBIC ACID 500 MG TABLET PO SCH (10:47)
[2020-07-01] MEDS: TAMSULOSIN 0.4 MG CAPSULE PO SCH ×2 (10:47→21:22)
[2020-07-01] MEDS: INSULIN ASPART PROTAMINE/ASPART 70/30 100 UNIT/ML SUBCUT SCH ×2 (10:48→22:33)
[2020-07-01] MEDS: COLLAGENASE OINT 30 GM TUBE TOP SCH (10:48)
[2020-07-01] MEDS: ESCITALOPRAM 10 MG TABLET PO SCH (21:22)
[2020-07-02 06:43] LABS: Basophils % 0.6 % (0.0-0.8); Eosinophils # 0.2 10*3/uL (0.0-0.87); Eosinophils % 3.2 % (0.00-10.9); Hematocrit 33.1 VOL% (42.0-52.0); Hemoglobin 10.5 GM/DL (14.0-18.0); Immature Granulocytes % 0.6 %; Immature Granulocytes Absolute 0.03 #; Lymphocytes # 0.4 10*3/uL (1.4-4.0); Lymphocytes % 8.6 % (21.2-54.2); Mean Corpuscular HGB Conc 31.7 GM/DL (32-36); Mean Corpuscular Volume 98.2 FL (87-102); Mean Platelet Volume 10.8 FL (9.6-12.0); Platelet Count 128 T/CUMM (130-400); Red Blood Count 3.37 MC/CUMM (3.8-5.5); Red Cell Distribution Width 15.4 % (9.3-17.3); White Blood Count 4.8 T/CUMM (4-12)
[2020-07-02 07:08] LABS: Calcium 9.1 MG/DL (8.5-10.1); Osmolality,Calculated 291.8 MOS/KG (273-304)
[2020-07-02 07:11] LABS: Potassium 5.4 MMOL/L (3.5-5.1)
[2020-07-02] MEDS: ASPIRIN CHEW 81 MG TABLET PO SCH (09:41)
[2020-07-02] MEDS: carvediloL 12.5 MG TABLET PO SCH (09:41)
[2020-07-02] MEDS: ASCORBIC ACID 500 MG TABLET PO SCH (09:41)
[2020-07-02] MEDS: TAMSULOSIN 0.4 MG CAPSULE PO SCH ×2 (09:41→22:45)
[2020-07-02] MEDS: ATORVASTATIN 40 MG TABLET PO SCH (09:41)
[2020-07-02] MEDS: CHOLECALCIFEROL 400 UNIT TABLET PO SCH (09:41)
[2020-07-02] MEDS: INSULIN ASPART PROTAMINE/ASPART 70/30 100 UNIT/ML SUBCUT SCH ×2 (09:41→18:08)
[2020-07-02] MEDS: COLLAGENASE OINT 30 GM TUBE TOP SCH (09:42)
[2020-07-02] MEDS: APIXABAN 2.5 MG TABLET PO SCH ×2 (09:42→22:44)
[2020-07-02] MEDS: INSULIN LISPRO 100 UNIT/ML SUBCUT SCH ×3 (09:51→18:08)
[2020-07-02 12:20] LABS: Glucose,Pleural Fluid 371 MG/DL; LDH,Body Fluid 67 U/L; Total Protein,Body Fluid 2.3 G/DL
[2020-07-02 12:56] LABS: Eosinophils,Pleural Fluid 1 %; Lymphocytes,Pleural Fluid 62 %; Monocytes,Pleural Fluid 1 %; Neutrophils,Pleural Fluid 36 %
[2020-07-02 12:57] LABS: RBC,Pleural Fluid 9 T/CUMM
[2020-07-02] MEDS ORDERED: FUROSEMIDE 40 MG/4 ML VIAL IV ONE (15:41)
[2020-07-02] MEDS ORDERED: INSULIN ASPART PROTAMINE/ASPART 70/30 100 UNIT/ML SUBCUT SCH (16:30)
[2020-07-02] MEDS: ESCITALOPRAM 10 MG TABLET PO SCH (22:45)
[2020-07-03] MEDS: carvediloL 6.25 MG TABLET PO SCH ×2 (00:13→09:43)
[2020-07-03] MEDS: INSULIN LISPRO 100 UNIT/ML SUBCUT SCH ×5 (00:13→22:43)
[2020-07-03 06:40] LABS: Calcium 8.7 MG/DL (8.5-10.1); Osmolality,Calculated 278.8 MOS/KG (273-304); Potassium 4.6 MMOL/L (3.5-5.1)
[2020-07-03 06:44] LABS: Basophils % 0.4 % (0.0-0.8); Eosinophils # 0.3 10*3/uL (0.0-0.87); Eosinophils % 5.7 % (0.00-10.9); Hematocrit 29.2 VOL% (42.0-52.0); Hemoglobin 9.7 GM/DL (14.0-18.0); Immature Granulocytes % 0.4 %; Immature Granulocytes Absolute 0.02 #; Lymphocytes # 0.4 10*3/uL (1.4-4.0); Lymphocytes % 7.7 % (21.2-54.2); Mean Corpuscular HGB Conc 33.2 GM/DL (32-36); Mean Corpuscular Volume 94.8 FL (87-102); Mean Platelet Volume 11.2 FL (9.6-12.0); Monocytes % 7.7 % (1.7-12.7); Neutrophils % 78.1 % (38.7-73.9); Platelet Count 110 T/CUMM (130-400); Red Blood Count 3.08 MC/CUMM (3.8-5.5); Red Cell Distribution Width 15.1 % (9.3-17.3); White Blood Count 4.9 T/CUMM (4-12)
[2020-07-03 07:48] LABS: Hypochromasia Slight; Microcytosis Slight; Ovalocytes Slight
[2020-07-03 07:49] LABS: Platelet Estimate Decreased
[2020-07-03] MEDS: INSULIN ASPART PROTAMINE/ASPART 70/30 100 UNIT/ML SUBCUT SCH ×2 (09:31→18:00)
[2020-07-03] MEDS: APIXABAN 2.5 MG TABLET PO SCH ×2 (09:32→22:42)
[2020-07-03] MEDS: ASCORBIC ACID 500 MG TABLET PO SCH (09:32)
[2020-07-03] MEDS: TAMSULOSIN 0.4 MG CAPSULE PO SCH ×2 (09:33→22:42)
[2020-07-03] MEDS: ASPIRIN CHEW 81 MG TABLET PO SCH (09:44)
[2020-07-03] MEDS: CHOLECALCIFEROL 400 UNIT TABLET PO SCH (09:44)
[2020-07-03] MEDS: ATORVASTATIN 40 MG TABLET PO SCH (09:44)
[2020-07-03] MEDS: COLLAGENASE OINT 30 GM TUBE TOP SCH (09:45)
[2020-07-03] MEDS ORDERED: carvediloL 3.125 MG TABLET PO ONE (21:00)
[2020-07-03] MEDS: ESCITALOPRAM 10 MG TABLET PO SCH (22:42)
[2020-07-04 06:11] LABS: Basophils % 0.4 % (0.0-0.8); Eosinophils # 0.3 10*3/uL (0.0-0.87); Eosinophils % 6.3 % (0.00-10.9); Hematocrit 28.9 VOL% (42.0-52.0); Hemoglobin 9.8 GM/DL (14.0-18.0); Immature Granulocytes % 0.4 %; Immature Granulocytes Absolute 0.02 #; Lymphocytes # 0.5 10*3/uL (1.4-4.0); Lymphocytes % 9.1 % (21.2-54.2); Mean Corpuscular HGB Conc 33.9 GM/DL (32-36); Mean Corpuscular Volume 94.4 FL (87-102); Mean Platelet Volume 10.8 FL (9.6-12.0); Monocytes % 8.3 % (1.7-12.7); Neutrophils % 75.5 % (38.7-73.9); Platelet Count 130 T/CUMM (130-400); Red Blood Count 3.06 MC/CUMM (3.8-5.5); Red Cell Distribution Width 15.4 % (9.3-17.3); White Blood Count 4.9 T/CUMM (4-12)
[2020-07-04 06:20] LABS: Calcium 8.4 MG/DL (8.5-10.1); Osmolality,Calculated 276.7 MOS/KG (273-304); Potassium 4.9 MMOL/L (3.5-5.1)
[2020-07-04] MEDS: INSULIN LISPRO 100 UNIT/ML SUBCUT SCH ×4 (08:26→20:44)
[2020-07-04] MEDS ORDERED: METOPROLOL SUCCINATE XL 25 MG TABLET PO SCH (09:00)
[2020-07-04] MEDS: TAMSULOSIN 0.4 MG CAPSULE PO SCH ×2 (09:12→20:37)
[2020-07-04] MEDS: ASPIRIN CHEW 81 MG TABLET PO SCH (09:12)
[2020-07-04] MEDS: CHOLECALCIFEROL 400 UNIT TABLET PO SCH (09:12)
[2020-07-04] MEDS: INSULIN ASPART PROTAMINE/ASPART 70/30 100 UNIT/ML SUBCUT SCH ×2 (09:12→17:16)
[2020-07-04] MEDS: APIXABAN 2.5 MG TABLET PO SCH ×2 (09:13→20:37)
[2020-07-04] MEDS: ASCORBIC ACID 500 MG TABLET PO SCH (09:13)
[2020-07-04] MEDS: ATORVASTATIN 40 MG TABLET PO SCH (09:13)
[2020-07-04] MEDS: COLLAGENASE OINT 30 GM TUBE TOP SCH (13:03)
[2020-07-04] MEDS: ESCITALOPRAM 10 MG TABLET PO SCH (20:37)
[2020-07-04] MEDS: MELATONIN 3 MG TABLET PO PRN (21:27)
[2020-07-05 05:14] LABS: Basophils % 0.4 % (0.0-0.8); Eosinophils # 0.4 10*3/uL (0.0-0.87); Eosinophils % 7.5 % (0.00-10.9); Hemoglobin 9.6 GM/DL (14.0-18.0); Immature Granulocytes % 0.6 %; Immature Granulocytes Absolute 0.03 #; Lymphocytes # 0.3 10*3/uL (1.4-4.0); Lymphocytes % 6.7 % (21.2-54.2); Mean Corpuscular Volume 96.5 FL (87-102); Mean Platelet Volume 10.4 FL (9.6-12.0); Monocytes % 12.3 % (1.7-12.7); Neutrophils % 72.5 % (38.7-73.9); Platelet Count 131 T/CUMM (130-400); Red Blood Count 3.11 MC/CUMM (3.8-5.5); Red Cell Distribution Width 15.2 % (9.3-17.3); White Blood Count 5.1 T/CUMM (4-12)
[2020-07-05 05:52] LABS: Calcium 8.4 MG/DL (8.5-10.1); Osmolality,Calculated 281.7 MOS/KG (273-304); Potassium 4.6 MMOL/L (3.5-5.1)
[2020-07-05] MEDS: INSULIN LISPRO 100 UNIT/ML SUBCUT SCH ×4 (08:08→21:00)
[2020-07-05] MEDS: ASPIRIN CHEW 81 MG TABLET PO SCH (09:15)
[2020-07-05] MEDS: ASCORBIC ACID 500 MG TABLET PO SCH (09:15)
[2020-07-05] MEDS: INSULIN ASPART PROTAMINE/ASPART 70/30 100 UNIT/ML SUBCUT SCH ×2 (09:15→17:59)
[2020-07-05] MEDS: TAMSULOSIN 0.4 MG CAPSULE PO SCH ×2 (09:16→20:13)
[2020-07-05] MEDS: CHOLECALCIFEROL 400 UNIT TABLET PO SCH (09:16)
[2020-07-05] MEDS: ATORVASTATIN 40 MG TABLET PO SCH (09:16)
[2020-07-05] MEDS: APIXABAN 2.5 MG TABLET PO SCH (09:16)
[2020-07-05] MEDS: COLLAGENASE OINT 30 GM TUBE TOP SCH (10:13)
[2020-07-05] MEDS ORDERED: traZODone 50 MG TABLET PO PRN (11:15)
[2020-07-05] MEDS: ESCITALOPRAM 10 MG TABLET PO SCH (20:13)
[2020-07-06 05:53] LABS: Basophils % 0.5 % (0.0-0.8); Eosinophils # 0.3 10*3/uL (0.0-0.87); Eosinophils % 7.8 % (0.00-10.9); Hematocrit 28.9 VOL% (42.0-52.0); Hemoglobin 9.4 GM/DL (14.0-18.0); Immature Granulocytes % 0.5 %; Immature Granulocytes Absolute 0.02 #; Lymphocytes # 0.4 10*3/uL (1.4-4.0); Lymphocytes % 9.1 % (21.2-54.2); Mean Corpuscular HGB Conc 32.5 GM/DL (32-36); Mean Platelet Volume 10.5 FL (9.6-12.0); Monocytes % 9.4 % (1.7-12.7); Neutrophils % 72.7 % (38.7-73.9); Platelet Count 132 T/CUMM (130-400); Red Blood Count 3.01 MC/CUMM (3.8-5.5); Red Cell Distribution Width 15.2 % (9.3-17.3); White Blood Count 3.9 T/CUMM (4-12)
[2020-07-06 06:31] LABS: Calcium 8.2 MG/DL (8.5-10.1); Osmolality,Calculated 292.5 MOS/KG (273-304); Potassium 5.5 MMOL/L (3.5-5.1)
[2020-07-06] MEDS: INSULIN LISPRO 100 UNIT/ML SUBCUT SCH ×4 (08:12→22:05)
[2020-07-06] MEDS: ASPIRIN CHEW 81 MG TABLET PO SCH (09:23)
[2020-07-06] MEDS: CHOLECALCIFEROL 400 UNIT TABLET PO SCH (09:24)
[2020-07-06] MEDS: ASCORBIC ACID 500 MG TABLET PO SCH (09:24)
[2020-07-06] MEDS: ATORVASTATIN 40 MG TABLET PO SCH (09:24)
[2020-07-06] MEDS: TAMSULOSIN 0.4 MG CAPSULE PO SCH ×2 (09:24→21:04)
[2020-07-06] MEDS ORDERED: ZALEPLON 5 MG CAPSULE PO PRN (09:31)
[2020-07-06] MEDS: COLLAGENASE OINT 30 GM TUBE TOP SCH (11:00)
[2020-07-06] MEDS: INSULIN ASPART PROTAMINE/ASPART 70/30 100 UNIT/ML SUBCUT SCH ×2 (12:09→16:48)
[2020-07-06] MEDS: ESCITALOPRAM 10 MG TABLET PO SCH (21:04)
[2020-07-07 08:30] LABS: Basophils % 0.5 % (0.0-0.8); Eosinophils # 0.2 10*3/uL (0.0-0.87); Hematocrit 29.2 VOL% (42.0-52.0); Hemoglobin 9.3 GM/DL (14.0-18.0); Immature Granulocytes % 0.5 %; Immature Granulocytes Absolute 0.02 #; Lymphocytes # 0.4 10*3/uL (1.4-4.0); Lymphocytes % 8.9 % (21.2-54.2); Mean Corpuscular HGB Conc 31.8 GM/DL (32-36); Mean Corpuscular Volume 96.7 FL (87-102); Mean Platelet Volume 10.3 FL (9.6-12.0); Neutrophils % 77.1 % (38.7-73.9); Platelet Count 133 T/CUMM (130-400); Red Blood Count 3.02 MC/CUMM (3.8-5.5); Red Cell Distribution Width 15.3 % (9.3-17.3); White Blood Count 4.4 T/CUMM (4-12)
[2020-07-07] MEDS: ATORVASTATIN 40 MG TABLET PO SCH (08:40)
[2020-07-07] MEDS: ASCORBIC ACID 500 MG TABLET PO SCH (08:40)
[2020-07-07] MEDS: INSULIN ASPART PROTAMINE/ASPART 70/30 100 UNIT/ML SUBCUT SCH ×2 (08:40→17:19)
[2020-07-07] MEDS: INSULIN LISPRO 100 UNIT/ML SUBCUT SCH ×4 (08:40→22:23)
[2020-07-07] MEDS: CHOLECALCIFEROL 400 UNIT TABLET PO SCH (08:40)
[2020-07-07] MEDS: ASPIRIN CHEW 81 MG TABLET PO SCH (08:40)
[2020-07-07] MEDS: COLLAGENASE OINT 30 GM TUBE TOP SCH (08:41)
[2020-07-07] MEDS: TAMSULOSIN 0.4 MG CAPSULE PO SCH ×2 (08:41→21:42)
[2020-07-07 08:43] LABS: Calcium 8.5 MG/DL (8.5-10.1); Osmolality,Calculated 294.1 MOS/KG (273-304)
[2020-07-07 08:46] LABS: Potassium 5.9 MMOL/L (3.5-5.1)
[2020-07-07] MEDS ORDERED: SODIUM POLYSTYRENE SULFATE 15 GM/60 ML BOTTLE PO PRN (10:45)
[2020-07-07] MEDS: ENOXAPARIN 30 MG/0.3 ML SYRINGE SUBCUT SCH (14:29)
[2020-07-07] MEDS: FUROSEMIDE 40 MG/4 ML VIAL IV SCH (17:12)
[2020-07-07] MEDS: ESCITALOPRAM 10 MG TABLET PO SCH (21:42)
[2020-07-08] MEDS: MELATONIN 3 MG TABLET PO PRN (01:21)
[2020-07-08 05:23] LABS: Basophils % 0.4 % (0.0-0.8); Eosinophils # 0.2 10*3/uL (0.0-0.87); Eosinophils % 4.2 % (0.00-10.9); Hematocrit 28.4 VOL% (42.0-52.0); Hemoglobin 9.1 GM/DL (14.0-18.0); Immature Granulocytes % 0.7 %; Immature Granulocytes Absolute 0.03 #; Lymphocytes # 0.4 10*3/uL (1.4-4.0); Lymphocytes % 8.7 % (21.2-54.2); Mean Corpuscular Volume 95.6 FL (87-102); Mean Platelet Volume 10.8 FL (9.6-12.0); Monocytes % 8.2 % (1.7-12.7); Neutrophils % 77.8 % (38.7-73.9); Platelet Count 149 T/CUMM (130-400); Red Blood Count 2.97 MC/CUMM (3.8-5.5); Red Cell Distribution Width 15.2 % (9.3-17.3); White Blood Count 4.5 T/CUMM (4-12)
[2020-07-08 05:50] LABS: Calcium 8.6 MG/DL (8.5-10.1); Osmolality,Calculated 294.7 MOS/KG (273-304); Potassium 5.6 MMOL/L (3.5-5.1)
[2020-07-08] MEDS: FUROSEMIDE 40 MG/4 ML VIAL IV SCH (09:07)
[2020-07-08] MEDS: ASCORBIC ACID 500 MG TABLET PO SCH (09:24)
[2020-07-08] MEDS: TAMSULOSIN 0.4 MG CAPSULE PO SCH (09:24)
[2020-07-08] MEDS: CHOLECALCIFEROL 400 UNIT TABLET PO SCH (09:24)
[2020-07-08] MEDS: ASPIRIN CHEW 81 MG TABLET PO SCH (09:24)
[2020-07-08] MEDS: ATORVASTATIN 40 MG TABLET PO SCH (09:24)
[2020-07-08] MEDS: INSULIN LISPRO 100 UNIT/ML SUBCUT SCH ×2 (09:25→12:24)
[2020-07-08] MEDS: INSULIN ASPART PROTAMINE/ASPART 70/30 100 UNIT/ML SUBCUT SCH (09:25)
[2020-07-08 16:19] VITALS: BP 100/52
[2020-07-08] MEDS: ENOXAPARIN 30 MG/0.3 ML SYRINGE SUBCUT SCH (16:26)
[2020-07-08] MEDS ORDERED: INSULIN ASPART PROTAMINE/ASPART 70/30 100 UNIT/ML SUBCUT SCH (16:30)
== END 2020-07-08 17:12 | disposition home health service (06) | DRG 291 ==
LOC: N.ED 17:12 → SUATTDRO 23:02 → N.EDINP 23:02 → N.TELEN 23:57
PROVIDERS: ADMIT Internal Medicine; ATTEND Internal Medicine

== ENCOUNTER 2020-07-17 14:45 | Inpatient (IN) ==
[2020-07-17 17:44] LABS: Basophils % 0.5 % (0.0-0.8); Eosinophils # 0.3 10*3/uL (0.0-0.87); Eosinophils % 6.7 % (0.00-10.9); Hematocrit 23.9 VOL% (42.0-52.0); Hemoglobin 7.7 GM/DL (14.0-18.0); Immature Granulocytes % 0.5 %; Immature Granulocytes Absolute 0.02 #; Lymphocytes # 0.5 10*3/uL (1.4-4.0); Lymphocytes % 11.9 % (21.2-54.2); Mean Corpuscular HGB Conc 32.2 GM/DL (32-36); Mean Corpuscular Volume 95.6 FL (87-102); Mean Platelet Volume 9.7 FL (9.6-12.0); Monocytes % 9.7 % (1.7-12.7); Neutrophils % 70.7 % (38.7-73.9); Platelet Count 174 T/CUMM (130-400); Red Cell Distribution Width 15.4 % (9.3-17.3); White Blood Count 4.2 T/CUMM (4-12)
[2020-07-17 18:29] LABS: Bilirubin,Total 0.7 MG/DL (0.2-1.0); Calcium 8.3 MG/DL (8.5-10.1); Osmolality,Calculated 309.5 MOS/KG (273-304); Potassium 4.6 MMOL/L (3.5-5.1); Total Protein 6.1 G/DL (6.4-8.2)
[2020-07-17] MEDS ORDERED: SODIUM CHLORIDE 0.9% 500 ML IV STA (18:45)
[2020-07-17] MEDS ORDERED: GLUCAGON 1 MG VIAL IM PRN ×2 (18:48→18:55)
[2020-07-17] MEDS ORDERED: DEXTROSE 50% 25 GM/50 ML VIAL IV PRN ×2 (18:48→18:55)
[2020-07-17] MEDS ORDERED: SODIUM CHLORIDE 0.45% 1,000 ML IV SCH (19:00)
[2020-07-17] MEDS ORDERED: SODIUM CHLORIDE 0.9% 1,000 ML IV PRN (19:49)
[2020-07-17 20:39] LABS: Bacteria,Urine Occasional /HPF (Few); Bilirubin,Urine Negative (Negative); Blood, Urine Negative (Negative); Glucose,Urine (UA) Negative (Negative); Ketones,Urine Negative (Negative); Mucus,Urine Occasional /LPF (Occasional); Nitrite,Urine Negative (Negative); Protein,Urine Negative; RBC,Urine 2 /HPF (0-4); Urine Appearance CLEAR (Clear); Urine Color Yellow (Yellow); Urine Specific Gravity 1.009 (1.001-1.035); Urine Urobilinogen < 2.0 EU/DL (0.2-1.0)
[2020-07-17 21:06] LABS: Ferritin 106.7 ng/ml (26-388)
[2020-07-17 22:25] LABS: Folate 11.84 NG/ML (5.38-24.0); Vitamin B12 534 PG/ML (211-911)
[2020-07-17] MEDS: APIXABAN 2.5 MG TABLET PO SCH (22:33)
[2020-07-17] MEDS: INSULIN LISPRO 100 UNIT/ML SUBCUT SCH (22:33)
[2020-07-17] MEDS: TAMSULOSIN 0.4 MG CAPSULE PO SCH (22:34)
[2020-07-17] MEDS: PANTOPRAZOLE 40 MG VIAL IV SCH (22:34)
[2020-07-17] MEDS: ESCITALOPRAM 10 MG TABLET PO SCH (22:34)
[2020-07-17 22:45] LABS: Basophils % 0.6 % (0.0-0.8); Eosinophils # 0.2 10*3/uL (0.0-0.87); Eosinophils % 6.4 % (0.00-10.9); Immature Granulocytes % 0.6 %; Immature Granulocytes Absolute 0.02 #; Lymphocytes # 0.4 10*3/uL (1.4-4.0); Mean Corpuscular HGB Conc 31.8 GM/DL (32-36); Mean Corpuscular Volume 97.3 FL (87-102); Mean Platelet Volume 10.1 FL (9.6-12.0); Monocytes % 9.9 % (1.7-12.7); Neutrophils % 71.5 % (38.7-73.9); Platelet Count 156 T/CUMM (130-400); Red Blood Count 2.26 MC/CUMM (3.8-5.5); Red Cell Distribution Width 15.8 % (9.3-17.3); White Blood Count 3.6 T/CUMM (4-12)
[2020-07-17 22:57] LABS: INR 1.2; PT Patient Result 13.1 SECS (10.5-12.0)
[2020-07-18 00:09] LABS: Sedimentation Rate-Westergren 46 MM/HR (0-20)
[2020-07-18 06:25] LABS: Basophils % 0.2 % (0.0-0.8); Eosinophils # 0.3 10*3/uL (0.0-0.87); Eosinophils % 6.2 % (0.00-10.9); Hematocrit 24.3 VOL% (42.0-52.0); Hemoglobin 7.8 GM/DL (14.0-18.0); Immature Granulocytes % 0.7 %; Immature Granulocytes Absolute 0.03 #; Lymphocytes # 0.4 10*3/uL (1.4-4.0); Lymphocytes % 9.1 % (21.2-54.2); Mean Corpuscular HGB Conc 32.1 GM/DL (32-36); Mean Corpuscular Volume 94.9 FL (87-102); Monocytes % 8.4 % (1.7-12.7); Neutrophils % 75.4 % (38.7-73.9); Platelet Count 146 T/CUMM (130-400); Red Blood Count 2.56 MC/CUMM (3.8-5.5); Red Cell Distribution Width 16.2 % (9.3-17.3); White Blood Count 4.5 T/CUMM (4-12)
[2020-07-18 06:51] LABS: Calcium 8.4 MG/DL (8.5-10.1); Osmolality,Calculated 312.7 MOS/KG (273-304); Thyroid Stimulating Hormone 6.36 uIU/ml (0.358-3.74)
[2020-07-18] MEDS ORDERED: diphenhydrAMINE CAP 25 MG CAPSULE PO PRN (08:24)
[2020-07-18] MEDS: INSULIN LISPRO 100 UNIT/ML SUBCUT SCH ×4 (09:58→20:44)
[2020-07-18] MEDS: ASPIRIN CHEW 81 MG TABLET PO SCH (09:58)
[2020-07-18] MEDS: TAMSULOSIN 0.4 MG CAPSULE PO SCH ×2 (09:58→20:39)
[2020-07-18] MEDS: ASCORBIC ACID 500 MG TABLET PO SCH (09:58)
[2020-07-18] MEDS: APIXABAN 2.5 MG TABLET PO SCH ×2 (09:59→20:39)
[2020-07-18] MEDS: PANTOPRAZOLE 40 MG VIAL IV SCH ×2 (10:06→20:40)
[2020-07-18] MEDS ORDERED: diphenhydrAMINE 2% CREAM 28 GM TUBE TOP PRN (15:30)
[2020-07-18] MEDS: ESCITALOPRAM 10 MG TABLET PO SCH (20:39)
[2020-07-18] MEDS: ATORVASTATIN 40 MG TABLET PO SCH (20:39)
[2020-07-19 09:21] LABS: Basophils % 0.2 % (0.0-0.8); Eosinophils # 0.1 10*3/uL (0.0-0.87); Eosinophils % 1.5 % (0.00-10.9); Hematocrit 25.4 VOL% (42.0-52.0); Hemoglobin 7.8 GM/DL (14.0-18.0); Immature Granulocytes % 0.9 %; Immature Granulocytes Absolute 0.04 #; Lymphocytes # 0.3 10*3/uL (1.4-4.0); Lymphocytes % 6.3 % (21.2-54.2); Mean Corpuscular HGB Conc 30.7 GM/DL (32-36); Mean Corpuscular Volume 97.7 FL (87-102); Mean Platelet Volume 10.7 FL (9.6-12.0); Monocytes % 6.3 % (1.7-12.7); Neutrophils % 84.8 % (38.7-73.9); Platelet Count 143 T/CUMM (130-400); Red Cell Distribution Width 16.8 % (9.3-17.3); White Blood Count 4.6 T/CUMM (4-12)
[2020-07-19 09:47] LABS: Calcium 8.4 MG/DL (8.5-10.1); Osmolality,Calculated 315.1 MOS/KG (273-304); Potassium 5.3 MMOL/L (3.5-5.1)
[2020-07-19] MEDS: ASPIRIN CHEW 81 MG TABLET PO SCH (10:09)
[2020-07-19] MEDS: APIXABAN 2.5 MG TABLET PO SCH ×2 (10:09→20:30)
[2020-07-19] MEDS: ASCORBIC ACID 500 MG TABLET PO SCH (10:09)
[2020-07-19] MEDS: TAMSULOSIN 0.4 MG CAPSULE PO SCH ×2 (10:09→20:31)
[2020-07-19] MEDS: PANTOPRAZOLE 40 MG VIAL IV SCH ×2 (10:11→20:31)
[2020-07-19] MEDS: INSULIN LISPRO 100 UNIT/ML SUBCUT SCH ×4 (10:15→21:15)
[2020-07-19] MEDS: ONDANSETRON 4 MG/2 ML VIAL IV PRN (16:37)
[2020-07-19] MEDS: ESCITALOPRAM 10 MG TABLET PO SCH (20:31)
[2020-07-19] MEDS: ATORVASTATIN 40 MG TABLET PO SCH (20:31)
[2020-07-19] MEDS: PROMETHAZINE 25 MG/1 ML VIAL IM PRN (21:29)
[2020-07-20 04:46] LABS: Basophils % 0.2 % (0.0-0.8); Eosinophils # 0.1 10*3/uL (0.0-0.87); Hematocrit 23.4 VOL% (42.0-52.0); Hemoglobin 7.3 GM/DL (14.0-18.0); Immature Granulocytes % 0.4 %; Immature Granulocytes Absolute 0.02 #; Lymphocytes # 0.4 10*3/uL (1.4-4.0); Lymphocytes % 7.9 % (21.2-54.2); Mean Corpuscular HGB Conc 31.2 GM/DL (32-36); Mean Corpuscular Volume 97.9 FL (87-102); Mean Platelet Volume 10.6 FL (9.6-12.0); Monocytes % 6.8 % (1.7-12.7); Neutrophils % 82.7 % (38.7-73.9); Platelet Count 135 T/CUMM (130-400); Red Blood Count 2.39 MC/CUMM (3.8-5.5); Red Cell Distribution Width 16.8 % (9.3-17.3); White Blood Count 4.6 T/CUMM (4-12)
[2020-07-20 05:16] LABS: Uric Acid 11.9 MG/DL (3.5-7.2)
[2020-07-20 05:17] LABS: Calcium 8.5 MG/DL (8.5-10.1); Osmolality,Calculated 316.8 MOS/KG (273-304); Potassium 5.3 MMOL/L (3.5-5.1)
[2020-07-20] MEDS: PANTOPRAZOLE 40 MG VIAL IV SCH ×2 (08:51→22:27)
[2020-07-20] MEDS: ONDANSETRON 4 MG/2 ML VIAL IV PRN (08:51)
[2020-07-20] MEDS: INSULIN LISPRO 100 UNIT/ML SUBCUT SCH ×3 (08:51→18:20)
[2020-07-20] MEDS: ASCORBIC ACID 500 MG TABLET PO SCH (08:52)
[2020-07-20] MEDS: TAMSULOSIN 0.4 MG CAPSULE PO SCH ×2 (08:52→22:28)
[2020-07-20] MEDS: APIXABAN 2.5 MG TABLET PO SCH ×3 (08:52→22:37)
[2020-07-20] MEDS: ASPIRIN CHEW 81 MG TABLET PO SCH (08:52)
[2020-07-20 10:24] LABS: Hemoglobin A1 (Alkaline) 97.3 % (96.5-98.5); Hemoglobin A2 (Alkaline) 2.7 % (1.5-3.5)
[2020-07-20] MEDS: SODIUM CHLORIDE 0.9% 1,000 ML IV SCH (18:20)
[2020-07-20] MEDS: ESCITALOPRAM 10 MG TABLET PO SCH (22:27)
[2020-07-20] MEDS: ATORVASTATIN 40 MG TABLET PO SCH (22:27)
[2020-07-21] MEDS: INSULIN LISPRO 100 UNIT/ML SUBCUT SCH ×5 (01:03→22:01)
[2020-07-21] MEDS: SODIUM CHLORIDE 0.9% 1,000 ML IV SCH ×3 (01:20→22:03)
[2020-07-21] MEDS ORDERED: SODIUM CHLORIDE 0.9% 250 ML IV ONE (05:17)
[2020-07-21 06:36] LABS: Calcium 8.9 MG/DL (8.5-10.1); Osmolality,Calculated 321.1 MOS/KG (273-304); Potassium 5.5 MMOL/L (3.5-5.1)
[2020-07-21 06:42] LABS: Parathyroid Hormone Intact 142.6 PG/ML (18.4-80.1)
[2020-07-21] MEDS ORDERED: propofoL 200 MG/20 ML VIAL IV ONE (08:35)
[2020-07-21] MEDS ORDERED: DEXMEDETOMIDINE 200 MCG/2 ML VIAL ONE (08:35)
[2020-07-21] MEDS ORDERED: LIDOCAINE 2% 5 ML VIAL ONE (08:35)
[2020-07-21] MEDS ORDERED: LIDOCAINE 1%/EPI INJ 20 ML VIAL ONE (08:36)
[2020-07-21] MEDS ORDERED: BUPIVACAINE MPF 0.25% 30 ML VIAL ONE (08:36)
[2020-07-21] MEDS ORDERED: HEPARIN 5,000 UNIT/1 ML VIAL ONE (08:36)
[2020-07-21] MEDS ORDERED: TISSUE ADHESIVE 1 EACH APPLICATOR TOP ONE (08:36)
[2020-07-21] MEDS ORDERED: SODIUM ZIRCONIUM CYCLOSILICATE 10 GM PACK PO SCH (09:00)
[2020-07-21] MEDS ORDERED: SODIUM CHLORIDE 0.9% 250 ML IV SCH (09:30)
[2020-07-21] MEDS ORDERED: HEPARIN 10,000 UNIT/10 ML VIAL IV SCH (11:15)
[2020-07-21 11:19] LABS: Hepatitis B Core IgM Quant 0.09 Index; Hepatitis B Surface Ag Quant < 0.10 Index; Hepatitis B Surface Ag Result Non-Reactive (NonReactive); Hepatitis C Virus Ab Quant 0.18 Index; Hepatitis C Virus Ab Result Non-Reactive (NonReactive)
[2020-07-21] MEDS ORDERED: ACETAMINOPHEN 500 MG TABLET PO PRN (15:23)
[2020-07-21] MEDS ORDERED: traMADol 50 MG TABLET PO PRN (15:23)
[2020-07-21] MEDS: ASPIRIN CHEW 81 MG TABLET PO SCH (15:49)
[2020-07-21] MEDS: APIXABAN 2.5 MG TABLET PO SCH ×2 (15:49→22:01)
[2020-07-21] MEDS: TAMSULOSIN 0.4 MG CAPSULE PO SCH ×2 (15:49→22:01)
[2020-07-21] MEDS: PANTOPRAZOLE 40 MG VIAL IV SCH ×2 (15:50→22:02)
[2020-07-21] MEDS: ASCORBIC ACID 500 MG TABLET PO SCH (15:50)
[2020-07-21 19:26] LABS: Eosinophils % 0.2 % (0.00-10.9); Hematocrit 24.4 VOL% (42.0-52.0); Hemoglobin 7.3 GM/DL (14.0-18.0); Immature Granulocytes % 0.6 %; Immature Granulocytes Absolute 0.03 #; Lymphocytes # 0.2 10*3/uL (1.4-4.0); Lymphocytes % 3.7 % (21.2-54.2); Mean Corpuscular HGB Conc 29.9 GM/DL (32-36); Mean Corpuscular Volume 100.8 FL (87-102); Mean Platelet Volume 11.2 FL (9.6-12.0); Neutrophils % 89.5 % (38.7-73.9); Platelet Count 149 T/CUMM (130-400); Red Blood Count 2.42 MC/CUMM (3.8-5.5); White Blood Count 4.8 T/CUMM (4-12)
[2020-07-21 19:40] LABS: Basophils % 0.2 % (0.0-0.8); Eosinophils # 0.1 10*3/uL (0.0-0.87); Eosinophils % 0.9 % (0.00-10.9); Hematocrit 21.8 VOL% (42.0-52.0); Hemoglobin 6.9 GM/DL (14.0-18.0); Immature Granulocytes % 0.8 %; Immature Granulocytes Absolute 0.04 #; Lymphocytes # 0.4 10*3/uL (1.4-4.0); Lymphocytes % 6.6 % (21.2-54.2); Mean Corpuscular HGB Conc 31.7 GM/DL (32-36); Mean Corpuscular Volume 96.5 FL (87-102); Mean Platelet Volume 10.2 FL (9.6-12.0); Neutrophils % 83.5 % (38.7-73.9); Platelet Count 133 T/CUMM (130-400); Red Blood Count 2.26 MC/CUMM (3.8-5.5); Red Cell Distribution Width 16.8 % (9.3-17.3); White Blood Count 5.3 T/CUMM (4-12)
[2020-07-21 20:03] LABS: Band Neutrophils 1 % (0-10); Burr Cells 2+; Lymphocytes 1 % (20-55); Macrocytosis 1+; Segmented Neutrophils 94 % (50-85); Total Cells Counted 100
[2020-07-21 20:04] LABS: Anisocytosis 1+; Poikilocytosis 2+; Polychromasia 1+; Schistocytes 1+
[2020-07-21 20:05] LABS: Platelet Estimate Increased
[2020-07-21 20:43] LABS: Eosinophils 1 % (0-10); Hypochromasia 1+; Lymphocytes 4 % (20-55); Macrocytosis 1+; Ovalocytes 1+; Segmented Neutrophils 92 % (50-85); Total Cells Counted 100
[2020-07-21 20:44] LABS: Platelet Estimate Normal; Polychromasia Few; Schistocytes Few; Toxic Granulation 1+
[2020-07-21] MEDS: ATORVASTATIN 40 MG TABLET PO SCH (22:01)
[2020-07-21] MEDS: ESCITALOPRAM 10 MG TABLET PO SCH (22:01)
[2020-07-22 06:16] LABS: Basophils % 0.2 % (0.0-0.8); Eosinophils % 0.2 % (0.00-10.9); Hematocrit 22.7 VOL% (42.0-52.0); Hemoglobin 7.1 GM/DL (14.0-18.0); Immature Granulocytes % 0.4 %; Immature Granulocytes Absolute 0.02 #; Lymphocytes # 0.2 10*3/uL (1.4-4.0); Lymphocytes % 4.6 % (21.2-54.2); Mean Corpuscular HGB Conc 31.3 GM/DL (32-36); Mean Corpuscular Volume 98.7 FL (87-102); Mean Platelet Volume 10.9 FL (9.6-12.0); Monocytes % 5.5 % (1.7-12.7); Neutrophils % 89.1 % (38.7-73.9); Platelet Count 137 T/CUMM (130-400); Red Cell Distribution Width 17.1 % (9.3-17.3); White Blood Count 4.6 T/CUMM (4-12)
[2020-07-22 06:39] LABS: Calcium 8.9 MG/DL (8.5-10.1); Osmolality,Calculated 311.7 MOS/KG (273-304); Potassium 5.2 MMOL/L (3.5-5.1)
[2020-07-22 06:42] LABS: Eosinophils 1 % (0-10); Hypochromasia 1+; Lymphocytes 2 % (20-55); Microcytosis 1+; Ovalocytes Slight; Platelet Estimate Adequate; Segmented Neutrophils 94 % (50-85); Total Cells Counted 100
[2020-07-22] MEDS: SODIUM CHLORIDE 0.9% 1,000 ML IV SCH ×2 (07:45→17:36)
[2020-07-22] MEDS ORDERED: propofoL 200 MG/20 ML VIAL IV ONE (08:00)
[2020-07-22] MEDS ORDERED: LIDOCAINE 2% 5 ML VIAL ONE (08:00)
[2020-07-22] MEDS ORDERED: ETOMIDATE 20 MG/10 ML VIAL IV ONE (08:00)
[2020-07-22] MEDS ORDERED: SODIUM CHLORIDE 0.9% 500 ML IV ONE (08:06)
[2020-07-22] MEDS: INSULIN LISPRO 100 UNIT/ML SUBCUT SCH ×3 (08:25→17:36)
[2020-07-22] MEDS: ASPIRIN CHEW 81 MG TABLET PO SCH (08:34)
[2020-07-22] MEDS: APIXABAN 2.5 MG TABLET PO SCH ×2 (08:34→20:49)
[2020-07-22] MEDS: ASCORBIC ACID 500 MG TABLET PO SCH (08:36)
[2020-07-22] MEDS: TAMSULOSIN 0.4 MG CAPSULE PO SCH (08:36)
[2020-07-22] MEDS ORDERED: CYPROHEPTADINE 4 MG TABLET PO SCH (09:00)
[2020-07-22] MEDS: PANTOPRAZOLE 40 MG VIAL IV SCH ×2 (09:45→20:58)
[2020-07-22] MEDS ORDERED: EPOETIN ALFA-EPBX 10,000 UNIT/ML VIAL IV PRN (10:12)
[2020-07-22] MEDS: CYPROHEPTADINE 4 MG TABLET PO SCH (20:49)
[2020-07-22] MEDS: ATORVASTATIN 40 MG TABLET PO SCH (20:50)
[2020-07-22] MEDS: PROMETHAZINE 25 MG/1 ML VIAL IM PRN (23:56)
[2020-07-23] MEDS: INSULIN LISPRO 100 UNIT/ML SUBCUT SCH ×5 (00:32→21:04)
[2020-07-23 04:57] LABS: Allen Test Positive
[2020-07-23 04:58] LABS: ABG Base Excess -11.1 MMOL/L (-2.5-2.5); ABG HCO3 15.5 MMOL/L (20-26); ABG Oxygen Saturation 97.8 % (95-100); ABG PCO2 30.3 MM HG (35-48); ABG TCO2 13.9 MMOL/L (23-27)
[2020-07-23 06:42] LABS: Basophils % 0.2 % (0.0-0.8); Eosinophils % 0.4 % (0.00-10.9); Hematocrit 21.8 VOL% (42.0-52.0); Hemoglobin 6.8 GM/DL (14.0-18.0); Immature Granulocytes % 0.4 %; Immature Granulocytes Absolute 0.02 #; Lymphocytes # 0.3 10*3/uL (1.4-4.0); Lymphocytes % 5.2 % (21.2-54.2); Mean Corpuscular HGB Conc 31.2 GM/DL (32-36); Mean Corpuscular Volume 97.8 FL (87-102); Mean Platelet Volume 11.1 FL (9.6-12.0); Monocytes % 7.5 % (1.7-12.7); Neutrophils % 86.3 % (38.7-73.9); Platelet Count 126 T/CUMM (130-400); Red Blood Count 2.23 MC/CUMM (3.8-5.5); Red Cell Distribution Width 17.2 % (9.3-17.3); White Blood Count 5.2 T/CUMM (4-12)
[2020-07-23 07:07] LABS: Calcium 8.6 MG/DL (8.5-10.1); Potassium 4.6 MMOL/L (3.5-5.1)
[2020-07-23] MEDS ORDERED: ZIPRASIDONE 20 MG/1 ML VIAL IM ONE ×2 (09:38→19:25)
[2020-07-23] MEDS: ASPIRIN CHEW 81 MG TABLET PO SCH (10:17)
[2020-07-23] MEDS: APIXABAN 2.5 MG TABLET PO SCH ×2 (10:18→20:12)
[2020-07-23] MEDS: CYPROHEPTADINE 4 MG TABLET PO SCH ×2 (10:18→20:13)
[2020-07-23] MEDS: PANTOPRAZOLE 40 MG VIAL IV SCH ×2 (10:19→20:08)
[2020-07-23] MEDS: ASCORBIC ACID 500 MG TABLET PO SCH (10:20)
[2020-07-23] MEDS ORDERED: SODIUM CHLORIDE 0.9% 1,000 ML IV PRN (16:40)
[2020-07-23 17:43] LABS: Basophils % 0.2 % (0.0-0.8); Eosinophils % 0.2 % (0.00-10.9); Hematocrit 20.3 VOL% (42.0-52.0); Hemoglobin 6.5 GM/DL (14.0-18.0); Immature Granulocytes % 0.4 %; Immature Granulocytes Absolute 0.02 #; Lymphocytes # 0.2 10*3/uL (1.4-4.0); Lymphocytes % 4.4 % (21.2-54.2); Mean Corpuscular Volume 95.8 FL (87-102); Mean Platelet Volume 10.9 FL (9.6-12.0); Monocytes % 10.6 % (1.7-12.7); Neutrophils % 84.2 % (38.7-73.9); Platelet Count 104 T/CUMM (130-400); Red Blood Count 2.12 MC/CUMM (3.8-5.5); Red Cell Distribution Width 16.9 % (9.3-17.3); White Blood Count 5.3 T/CUMM (4-12)
[2020-07-23 18:02] LABS: Calcium 8.4 MG/DL (8.5-10.1); Osmolality,Calculated 287.5 MOS/KG (273-304); Potassium 3.3 MMOL/L (3.5-5.1)
[2020-07-23 18:28] LABS: Lymphocytes 4 % (20-55); Total Cells Counted 100
[2020-07-23 18:29] LABS: Platelet Estimate Decreased; Polychromasia Slight; Segmented Neutrophils 88 % (50-85)
[2020-07-23 18:30] LABS: Hypochromasia Slight; Microcytosis Slight
[2020-07-23] MEDS: SODIUM CHLORIDE 0.9% 1,000 ML IV SCH (19:57)
[2020-07-23] MEDS: ATORVASTATIN 40 MG TABLET PO SCH (20:12)
[2020-07-24] MEDS: SODIUM CHLORIDE 0.9% 1,000 ML IV SCH ×2 (03:20→19:02)
[2020-07-24 05:00] LABS: ABG Base Excess -8.5 MMOL/L (-2.5-2.5); ABG HCO3 17.4 MMOL/L (20-26); ABG Oxygen Saturation 96.1 % (95-100); ABG PCO2 29.8 MM HG (35-48); ABG PH 7.347 (7.35-7.45); ABG PO2 82.6 MM HG (80-95); ABG TCO2 15.5 MMOL/L (23-27); Allen Test Positive
[2020-07-24 05:06] LABS: Basophils % 0.3 % (0.0-0.8); Eosinophils % 0.3 % (0.00-10.9); Hematocrit 20.4 VOL% (42.0-52.0); Hemoglobin 6.5 GM/DL (14.0-18.0); Immature Granulocytes % 0.5 %; Immature Granulocytes Absolute 0.02 #; Lymphocytes # 0.3 10*3/uL (1.4-4.0); Lymphocytes % 7.7 % (21.2-54.2); Mean Corpuscular HGB Conc 31.9 GM/DL (32-36); Mean Corpuscular Volume 97.1 FL (87-102); Mean Platelet Volume 10.8 FL (9.6-12.0); Monocytes % 8.7 % (1.7-12.7); Neutrophils % 82.5 % (38.7-73.9); Red Cell Distribution Width 17.4 % (9.3-17.3); White Blood Count 3.9 T/CUMM (4-12)
[2020-07-24 05:08] LABS: Platelet Count 94 T/CUMM (130-400)
[2020-07-24 05:21] LABS: Calcium 8.4 MG/DL (8.5-10.1); Osmolality,Calculated 291.8 MOS/KG (273-304); Potassium 3.6 MMOL/L (3.5-5.1)
[2020-07-24 05:24] LABS: Albumin 2.4 G/DL (3.4-5.0); Bilirubin,Total 1.4 MG/DL (0.2-1.0); Calcium 8.5 MG/DL (8.5-10.1); Osmolality,Calculated 291.8 MOS/KG (273-304); Potassium 3.6 MMOL/L (3.5-5.1); Total Protein 5.4 G/DL (6.4-8.2)
[2020-07-24 06:02] LABS: Anisocytosis 2+; Macrocytosis 1+; Platelet Estimate Decreased; Spherocytes Few
[2020-07-24 06:03] LABS: Ovalocytes Few; Poikilocytosis Slight; Tear Drop Cells Few
[2020-07-24] MEDS ORDERED: SODIUM CHLORIDE 0.9% 1,000 ML IV PRN (07:14)
[2020-07-24] MEDS ORDERED: SODIUM CHLORIDE 0.9% 1,000 ML IV ONE (08:42)
[2020-07-24] MEDS ORDERED: NOREPINEPHRINE 16 MG in SODIUM CHLORIDE 0.9% 234 ML IV PRN (08:49)
[2020-07-24] MEDS ORDERED: NOREPINEPHRINE 8 MG in SODIUM CHLORIDE 0.9% 242 ML IV PRN (08:50)
[2020-07-24] MEDS ORDERED: ENOXAPARIN 30 MG/0.3 ML SYRINGE SUBCUT SCH (09:00)
[2020-07-24 09:02] LABS: ABG Base Excess -16.5 MMOL/L (-2.5-2.5); ABG HCO3 11.7 MMOL/L (20-26); ABG Oxygen Saturation 98.2 % (95-100); ABG PCO2 45.1 MM HG (35-48); ABG PH 7.064 (7.35-7.45); ABG TCO2 12.8 MMOL/L (23-27)
[2020-07-24] MEDS ORDERED: DOPamine 800 MG/250 ML PREMIX IV ONE (09:14)
[2020-07-24] MEDS ORDERED: DOPamine 800 MG/250 ML PREMIX IV PRN (09:17)
[2020-07-24] MEDS ORDERED: SODIUM BICARBONATE 50 MEQ/50 ML VIAL IV ONE (09:26)
[2020-07-24] MEDS ORDERED: EPINEPHrine 1 MG/ML VIAL ONE (09:45)
[2020-07-24] MEDS ORDERED: AMIODARONE 150 MG/3 ML VIAL ONE (09:45)
[2020-07-24] MEDS ORDERED: CALCIUM CHLORIDE 1,000 MG/10 ML SYRINGE IV ONE (09:45)
[2020-07-24] MEDS ORDERED: NOREPINEPHRINE 4 MG/4 ML VIAL IV ONE (10:42)
[2020-07-24] MEDS: SODIUM BICARB INJ 150 MEQ in STERILE WATER INJ 850 ML IV SCH (11:19)
[2020-07-24] MEDS: INSULIN LISPRO 100 UNIT/ML SUBCUT SCH ×4 (11:55→21:28)
[2020-07-24 12:20] LABS: Bilirubin,Urine Negative (Negative); Blood, Urine Large mg/dL (Negative); Glucose,Urine (UA) 50 mg/dL (Negative); Hyaline Casts,Urine 59 /LPF (0-3); Ketones,Urine 5 mg/dL (Negative); Mucus,Urine Few /LPF (Occasional); Nitrite,Urine Negative (Negative); Protein,Urine 100 MG/DL; RBC,Urine 486 /HPF (0-4); Squamous Epithelial Cell,Urine Occasional /HPF (0-10); Urine Appearance CLOUDY (Clear); Urine Color Amber (Yellow); Urine Specific Gravity 1.019 (1.001-1.035); Urine Urobilinogen < 2.0 EU/DL (0.2-1.0)
[2020-07-24] MEDS: PANTOPRAZOLE 40 MG VIAL IV SCH ×2 (14:21→21:28)
[2020-07-24] MEDS: ASPIRIN CHEW 81 MG TABLET PO SCH (14:21)
[2020-07-24 16:49] LABS: Hematocrit 28.8 VOL% (42.0-52.0); Hemoglobin 9.2 GM/DL (14.0-18.0)
[2020-07-24 19:02] VITALS: BP 135/55
[2020-07-25 04:04] LABS: ABG Base Excess 3.1 MMOL/L (-2.5-2.5); ABG HCO3 27.2 MMOL/L (20-26); ABG PCO2 26.2 MM HG (35-48); ABG TCO2 22.7 MMOL/L (23-27)
[2020-07-25 04:31] LABS: Basophils % 0.2 % (0.0-0.8); Hematocrit 24.4 VOL% (42.0-52.0); Hemoglobin 8.4 GM/DL (14.0-18.0); Immature Granulocytes % 0.5 %; Immature Granulocytes Absolute 0.03 #; Lymphocytes # 0.2 10*3/uL (1.4-4.0); Lymphocytes % 3.9 % (21.2-54.2); Mean Corpuscular HGB Conc 34.4 GM/DL (32-36); Mean Corpuscular Volume 88.4 FL (87-102); Mean Platelet Volume 11.8 FL (9.6-12.0); Monocytes % 7.2 % (1.7-12.7); Neutrophils % 88.2 % (38.7-73.9); Platelet Count 81 T/CUMM (130-400); Red Blood Count 2.76 MC/CUMM (3.8-5.5); White Blood Count 6.2 T/CUMM (4-12)
[2020-07-25 04:56] LABS: Lymphocytes 3 % (20-55); Platelet Estimate Decreased; Segmented Neutrophils 96 % (50-85); Total Cells Counted 100
[2020-07-25 04:57] LABS: Hypochromasia Slight
[2020-07-25 05:10] LABS: Albumin 2.3 G/DL (3.4-5.0); Bilirubin,Total 1.9 MG/DL (0.2-1.0); Calcium 8.4 MG/DL (8.5-10.1); Osmolality,Calculated 294.5 MOS/KG (273-304); Potassium 2.9 MMOL/L (3.5-5.1); Total Protein 5.1 G/DL (6.4-8.2)
[2020-07-25] MEDS: SODIUM BICARB INJ 150 MEQ in STERILE WATER INJ 850 ML IV SCH ×2 (05:46→06:54)
[2020-07-25] MEDS ORDERED: POTASSIUM PHOSPHATE 15 MMOL in SODIUM CHLORIDE 0.9% 100 ML IV ONE (08:41)
[2020-07-25] MEDS ORDERED: POTASSIUM CHLORIDE 20 MEQ/15 ML UDCUP PER TUBE PRN ×2 (08:41→08:55)
[2020-07-25] MEDS: PANTOPRAZOLE 40 MG VIAL IV SCH (09:00)
[2020-07-25] MEDS: INSULIN LISPRO 100 UNIT/ML SUBCUT SCH ×2 (09:17→11:09)
[2020-07-25] MEDS ORDERED: LORazepam 2 MG/1 ML VIAL IV PRN (14:35)
[2020-07-25] MEDS ORDERED: MORPHINE 4 MG/1 ML VIAL IV PRN (14:35)
[2020-07-25] MEDS ORDERED: LORazepam 2 MG/1 ML VIAL ONE ×3 (14:39→19:25)
[2020-07-25] MEDS: LORazepam 2 MG/1 ML VIAL IV PRN ×4 (14:40→20:25)
[2020-07-25] MEDS ORDERED: MORPHINE 4 MG/1 ML VIAL ONE (14:40)
[2020-07-25] MEDS: MORPHINE 4 MG/1 ML VIAL IV PRN ×7 (14:40→20:48)
[2020-07-28 13:06] LABS: Myeloperoxidase Antibody < 0.2 U
[2020-07-28 13:08] LABS: Antinuclear Ab, S 2.2 U
[2020-07-29 12:27] LABS: Double Stranded DNA Antibodies < 25.0 IU/ML
[2020-07-30 13:15] LABS: Anti SS-A Antibodies < 16 EU/ML
== END 2020-07-25 21:18 | disposition expired | DRG 673 ==
LOC: N.ED 14:45 → SUATTDRO 18:49 → N.EDINP 18:49 → N.4E 21:45 → N.CC 07-24 08:52
PROVIDERS: ADMIT Internal Medicine; ATTEND Internal Medicine